=== PATIENT | female | born 1950 | race Caucasian/White ===

== ENCOUNTER 2016-11-01 20:52 | Emergency (ER) | payer MEDICARE, OTHER ==
[~2016-11-01] VITALS: Ht 157.5 cm; Wt 63.5 kg
[~2016-11-01 20:52] MED LIST: AMLO5TAB2 PO; CIPR500T78 PO; ENAL20TA PO; METH4TAB PO; METR500T PO; PANT40TA2 PO; SULF1TAB38 PO
--- OUTSIDE RECORDS SUMMARY | 2016-11-01 20:57 | XMS REPORT | Continuity of Care Document ---
Author Author [facility] Organization [facility] Address Unknown Phone Unavailable Allergies Active Description Code Type Severity Reaction Onset Reported/Identified Relationship to Patient Clinical Status Yes amlodipine [id number] Drug Allergy Unknown N/A 09/01/2013 Yes Penicillins [id number] Drug Allergy Mild N/A 02/03/2015 Yes erythromycin base [id number] Drug Allergy Severe HIVES 06/04/2015 Medications Problems Date Dx Coded Attending Type Code Diagnosis Diagnosed By 09/02/2013 SANJAY YANES DO Ot 276.50 VOLUME DEPLETION, UNSPECIFIED 09/02/2013 SANJAY YANES DO Ot 599.0 URIN TRACT INFECTION NOS 09/02/2013 SANJAY YANES DO Ot 780.60 FEVER, UNSPECIFIED 11/28/2014 CAMERON BAUM, GREGORIA Mary Ot 558.9 NONINF GASTROENTERIT NEC 11/28/2014 CAMERON BAUM, GREGORIA T Ot 562.10 DIVERTICULOSIS COLON (W/O MENT OF HEMORR 11/28/2014 CAMERON BAUM, GREGORIA Mary Ot 569.3 RECTAL ANAL HEMORRHAGE 11/28/2014 CAMERON BAUM, GREGORIA T Ot 753.10 CYSTIC KIDNEY DISEASE, UNSPECIFIED 11/28/2014 RENEE BAUM, MITUL R Ot 786.50 11/28/2014 RENEE BAUM, MITUL R Ot 611.71 11/28/2014 RENEE BAUM, MITUL R Ot 793.89 11/28/2014 RENEE BAUM, MITUL R Ot V15.88 11/28/2014 RENEE BAUM, MITUL R Ot V16.3 11/28/2014 RENEE BAUM, MITUL R Ot V76.12 11/28/2014 RENEE BAUM, MITUL R Ot V76.12 01/13/2015 RENEE BAUM, MITUL R Ot 786.50 01/13/2015 RENEE BAUM, MITUL R Ot 611.71 01/13/2015 RENEE BAUM, MITUL R Ot 793.89 01/13/2015 RENEE BAUM, MITUL R Ot V15.88 01/13/2015 RENEE BAUM, MITUL R Ot V16.3 01/13/2015 RENEE BAUM, MITUL R Ot V76.12 01/13/2015 RENEE BAUM, MITUL R Ot V76.12 02/03/2015 MAYO BAUM, SAL Ot K21.0 GASTRO-ESOPHAGEAL REFLUX DISEASE WITH ES 02/03/2015 MAYO BAUM, SAL Ot K29.70 GASTRITIS, UNSPECIFIED, WITHOUT BLEEDING 02/03/2015 MAYO BAUM, SAL Ot K44.9 DIAPHRAGMATIC HERNIA WITHOUT OBSTRUCTION 02/03/2015 MAYO BAUM, SAL Ot K57.90 DVRTCLOS OF INTEST, PART UNSP, W/O PERF 02/03/2015 MAYO BAUM, SAL Ot K64.4 RESIDUAL HEMORRHOIDAL SKIN TAGS 02/03/2015 MAYO BAUM, SAL Ot K64.8 OTHER HEMORRHOIDS 02/03/2015 RENEE BAUM, MITUL R Ot 719.45 02/03/2015 RENEE BAUM, MITUL R Ot V76.12 02/22/2015 RENEE BAUM, MITUL R Ot 719.45 02/22/2015 RENEE BAUM, MITUL R Ot V76.12 06/04/2015 FILIBERTO ABUM, CAROLEE S Ot N95.2 POSTMENOPAUSAL ATROPHIC VAGINITIS 06/04/2015 FILIBERTO BAUM, CAROLEE S Ot R30.0 DYSURIA 12/23/2015 RENEE BAUM, MITUL R Ot 786.50 CHEST PAIN NOS 12/23/2015 RENEE BAUM, MITUL R Ot 611.71 MASTODYNIA 12/23/2015 RENEE BAUM, MITUL R Ot 793.89 OTH (ABN) FINDINGS ON RADIOLOGICAL EXAMI 12/23/2015 RENEE BAUM, MITUL R Ot V15.88 HISTORY OF FALL 12/23/2015 MITUL DURAN MD R Ot V16.3 FAMILY HX-BREAST MALIG 12/23/2015 MITUL DURAN MD R Ot V76.12 OTH SCREEN MAMMO-MALIGN NEOPLASM OF COOPER 12/23/2015 MITUL DURAN MD Ot V76.12 OTH SCREEN MAMMO-MALIGN NEOPLASM OF [place]OPER 12/23/2015 MITUL DURAN MD Ot 719.45 JOINT PAIN-PELVIS 12/23/2015 MITUL DURAN MD Ot V76.12 OTH SCREEN MAMMO-MALIGN NEOPLASM OF [place] 12/23/2015 SAL HUBER MD Ot Z01.818 ENCOUNTER FOR OTHER PREPROCEDURAL EXAMIN 01/14/2016 MITUL DURAN MD R Ot R10.11 RIGHT UPPER QUADRANT PAIN 01/14/2016 MITUL DURAN MD Ot R10.31 RIGHT LOWER QUADRANT PAIN 02/02/2016 MITUL DURAN MD Ot R10.11 RIGHT UPPER QUADRANT PAIN 02/02/2016 MITUL DURAN MD Ot R10.31 RIGHT LOWER QUADRANT PAIN Procedures Results Test Result Range [id number] - 12/23/15 07:05 Serum or plasma urea nitrogen measurement (mass/volume) 19 mg/dL 7-18 Serum or plasma creatinine measurement (mass/volume) 0.78 mg /dL 0.60-1.30 Serum or plasma urea nitrogen/creatinine mass ratio 24 NRG Serum or plasma creatinine measurement with calculation of estimated glomerular filtration rate > NRG Encounters ACCT No. Visit Date/Time Discharge Status Pt. Type Provider Facility Loc./Unit Complaint [id number] 06/04/2015 10:10:00 2015 12:00:00 DIS Emergency FILIBERTO BAUM, CAROLEE Jamison [facility] ER VAG BLEEDING, UTI SYMPTOMS [id number] 02/03/2015 08:00:00 2014 12:35:00 DIS Outpatient SAL HUBER MD [facility] SDC REFLUX; SCREENING [id number] 01/28/2015 05:42:00 2014 23:59:59 CLS Outpatient SAL HUBER MD [facility] PREOP REFLUX; SCREENING [id number] 01/13/2015 09:18:00 2014 23:59:59 CLS Outpatient MITUL DURAN MD [facility] RAD SCREENING,PAIN IN BOTH HIPS [id number] 11/27/2014 23:09:00 2014 01:48:00 DIS Emergency CAMERON BAUM, GREGORIA Mary [facility] ER RECTAL BLEEDING [id number] 01/21/2014 12:55:00 2013 23:59:59 CLS Outpatient MITUL DURAN MD [facility] RAD SCREENING [id number] 09/01/2013 21:01:00 2013 01:11:00 DIS Emergency FARZANA DO, SANJAY K [facility] ER FEVER, DEHYDRATED [id number] 06/30/2013 07:36:00 2013 23:59:59 CLS Outpatient MITUL DURAN MD [facility] RAD 6 MONTH FOLLOW UP [id number] 10/14/2012 08:09:00 2012 23:59:59 CLS Outpatient MITUL DURAN MD [facility] RAD RT BREAST SORENESS,FALL [id number] 09/25/2012 15:44:00 2012 23:59:59 CLS Outpatient MITUL DURAN MD [facility] RAD SHARP PAIN,R CENT CHEST [id number] 12/23/2015 06:51:00 ACT Outpatient MITUL DURAN MD [facility] RAD ABD PAIN,RUQ LQ PAIN
[2016-11-01] MEDS ORDERED: LACTATED RINGERS 1,000 ML IV ONE (22:15)
--- NOTE | 2016-11-01 22:15 | ED General ---
General Chief Complaint: General Problems/Pain Stated Complaint: NAUSEA,WEAKNESS Nursing Triage Note: PT C/O WEAKNESS, FATIGUE, DECREASED APPETITE STARTING SUNDAY. Nursing Sepsis Screen: No Definite Risk Source of Information: Patient, Spouse Exam Limitations: No Limitations History of Present Illness Time Seen by Provider: 22:06 Initial Comments Patient uses the ER with 3 days of progressively worsening malaise and fatigue. She states that she gets dehydrated from time to time because she does not like to drink water very much. She has high blood pressure and is treated with enalapril and amlodipine. She is not on any diuretics. However she has noted that she has had less urination. She denies dysuria or discharge. She denies shortness of breath, nausea, vomiting, chest pain, palpitations, syncope, diarrhea, constipation. She states she was told 20 years ago when she was in the ER in [place] that she was "primed for a heart attack" but had a subsequent heart catheter that was normal. She has no cardiac history otherwise. No hypothyroid her hyperthyroidism. She smoked for one to 2 years when she was in her teens and does not drink or use drugs. Allergies and Home Medications Allergies Coded Allergies: erythromycin base (Verified Allergy, Severe, HIVES, 06/04/15) Penicillins (Verified Allergy, Mild, 02/03/15) Home Medications Amlodipine Besylate 5 Mg Tablet, 2.5 MG PO DAILY, (Reported) Enalapril Maleate 20 Mg Tablet, 20 MG PO DAILY, (Reported) Constitutional: No chills, No diaphoresis, No dizziness, No fever, malaise, No weakness, No weight gain, No weight loss EENTM: No ear pain, No epistaxis, No eye pain, No nose congestion, No nose pain Respiratory: No cough, No dyspnea on exertion, No short of breath, No wheezing Cardiovascular: No chest pain, edema, No Hx of Intervention (mild) Gastrointestinal: No abdominal pain, No constipation, No diarrhea, No dysphagia Genitourinary: No dysuria, No frequency : No Musculoskeletal: No back pain, No joint pain Skin: No pruritus, No rash Psychiatric/Neurological: Denies Headache, Denies Numbness, Denies Paresthesia , Denies Tremors, Denies Weakness Past Grsckas-Mpxejh-Rguccu Hx Patient Social History Alcohol Use: Denies Use Recreational Drug Use: No Smoking Status: Never a Smoker Recent Foreign Travel: No Contact w/Someone Who Travel: No Recent Infectious Disease Expo: No Recent Hopitalizations: No Seasonal Allergies Seasonal Allergies: No Surgeries HX Surgeries: Yes (cystocele repair) Surgeries: Abdominal, Gallbladder, Hysterectomy, Oophorectomy Respiratory Hx Respiratory Disorders: No Cardiovascular Hx Cardiac Disorders: Yes Cardiac Disorders: Hypertension Neurological Hx Neurological Disorders: No Reproductive System Hx Reproductive Disorders: No Sexually Transmitted Disease: No HIV/AIDS: No 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 Genitourinary Hx Genitourinary Disorders: Yes Genitourinary Disorders: UTI-Chronic Gastrointestinal Hx Gastrointestinal Disorders: Yes Gastrointestinal Disorders: Diverticulosis, Hemorrhoids, Hiatal Hernia Musculoskeletal Hx Musculoskeletal Disorders: No Endocrine Hx Endocrine Disorders: No HEENT HX ENT Disorders: No Cancer Hx Cancer: No Psychosocial Hx Psychiatric Problems: No Integumentary HX Skin/Integumentary Disorder: No Blood Transfusions Hx Blood Disorders: No Adverse Reaction to a Blood Tr: No Family Medical History Significant Family History: Heart Disease, Cancer, Diabetes Physical Exam Vital Signs Vital Sign - Last 12Hours 11/01/16 21:04 Temp 98.2 Pulse 67 Resp 18 B/P (MAP) 141/100 Capillary Refill : Less Than 3 Seconds General Appearance: No Apparent Distress, WD/WN Eyes: Bilateral Eye EOMI, Bilateral Eye Normal Inspection, Bilateral Eye PERRL HEENT: PERRL/EOMI, Pharynx Normal Neck: Full Range of Motion, Normal Inspection, Non Tender, Supple Respiratory: Chest Non Tender, Lungs Clear, Normal Breath Sounds, No Accessory Muscle Use Cardiovascular: Regular Rate, Rhythm, No Edema, No Gallop, No JVD, Normal Peripheral Pulses Gastrointestinal: Normal Bowel Sounds, Non Tender, Soft Extremity: Normal Capillary Refill, No Pedal Edema Neurologic/Psychiatric: Alert, Oriented x3 Skin: Normal Color, Warm/Dry Progress/Results/Core Measures Results/Orders Lab Results Laboratory Tests Test 11/01/16 21:13 11/01/16 21:24 Range/Units White Blood Count 5.8 4.3-11.0 10^3/uL Red Blood Count 4.65 4.35-5.85 10^6/uL Hemoglobin 13.6 11.5-16.0 G/DL Hematocrit 41 35-52 % Mean Corpuscular Volume 89 80-99 FL Mean Corpuscular Hemoglobin 29 25-34 PG Mean Corpuscular Hemoglobin Concent 33 32-36 G/DL Red Cell Distribution Width 13.9 10.0-14.5 % Platelet Count 373 130-400 10^3/uL Mean Platelet Volume 10.3 7.4-10.4 FL Neutrophils (%) (Auto) 59 42-75 % Lymphocytes (%) (Auto) 27 12-44 % Monocytes (%) (Auto) 10 0-12 % Eosinophils (%) (Auto) 4 0-10 % Basophils (%) (Auto) 0 0-10 % Neutrophils # (Auto) 3.4 1.8-7.8 X 10^3 Lymphocytes # (Auto) 1.6 1.0-4.0 X 10^3 Monocytes # (Auto) 0.6 0.0-1.0 X 10^3 Eosinophils # (Auto) 0.2 0.0-0.3 10^3/uL Basophils # (Auto) 0.0 0.0-0.1 10^3/uL Prothrombin Time 12.4 12.2-14.7 SEC INR Comment 1.0 0.8-1.4 Activated Partial Thromboplast Time 28 24-35 SEC Sodium Level 141 135-145 MMOL/L Potassium Level 3.9 3.6-5.0 MMOL/L Chloride Level 108 H 98-107 MMOL/L Carbon Dioxide Level 23 21-32 MMOL/L Anion Gap 10 5-14 MMOL/L Blood Urea Nitrogen 17 7-18 MG/DL Creatinine 0.77 0.60-1.30 MG/DL Estimat Glomerular Filtration Rate > 60 BUN/Creatinine Ratio 22 Glucose Level 95 70-105 MG/DL Calcium Level 9.1 8.5-10.1 MG/DL Magnesium Level 2.4 1.8-2.4 MG/DL Total Bilirubin 0.4 0.1-1.0 MG/DL Aspartate Amino Transf (AST/SGOT) 32 5-34 U/L Alanine Aminotransferase (ALT/SGPT) 31 0-55 U/L Alkaline Phosphatase 67 40-136 U/L Troponin I < 0.30 <0.30 NG/ML Total Protein 7.3 6.4-8.2 GM/DL Albumin 4.2 3.2-4.5 GM/DL Thyroid Stimulating Hormone (TSH) 1.71 0.35-4.94 UIU/ML Urine Color YELLOW Urine Clarity CLEAR Urine pH 6 5-9 Urine Specific [place] 1.020 1.016-1.022 Urine Protein NEGATIVE NEGATIVE Urine Glucose (UA) NEGATIVE NEGATIVE Urine Ketones NEGATIVE NEGATIVE Urine Nitrite NEGATIVE NEGATIVE Urine Bilirubin NEGATIVE NEGATIVE Urine Urobilinogen NORMAL NORMAL MG/DL Urine Leukocyte Esterase 2+ H NEGATIVE Urine RBC (Auto) NEGATIVE NEGATIVE Urine RBC NONE /HPF Urine WBC 2-5 /HPF Urine Squamous Epithelial Cells 0-2 /HPF Urine Crystals NONE /LPF Urine Bacteria FEW H /HPF Urine Casts NONE /LPF Urine Mucus TRACE /LPF Urine Culture Indicated NO My Orders Orders - FRANK FARIA Cbc With Automated Diff (11/01/16 22:15) Comprehensive Metabolic Panel (11/01/16 22:15) Magnesium (11/01/16 22:15) Protime With Inr (11/01/16:15) Partial Thromboplastin Time (11/01/16 22:15) Thyroid Stimulating Hormone (11/01/16 22:15) Troponin I (11/01/16 22:15) Chest 1 View, Ap/Pa Only (11/01/16:15) Ekg Tracing (11/01/16 22:15) Monitor-Rhythm Ecg Trace Only (11/01/16 22:15) Lipid Panel (11/02/16 06:00) Saline Lock/Iv-Start (11/01/16 22:15) Lactated Ringers (Lr 1000 Ml Iv Solution (11/01/16 22:15) Ua Culture If Indicated (11/01/16 23:05) Medications Given in ED Current Medications Medications Dose Ordered Sig/Paula Route Start Time Stop Time Status Last Admin Dose Admin Lactated Ringer's 1,000 ml @ 0 mls/hr Q0M ONCE IV 11/01/16 22:15 11/01/16 22:22 DC 11/01/16 22:36 1,000 MLS/HR Vital Signs/I&O Vital Sign - Last 12Hours 11/01/16 21:04 Temp 98.2 Pulse 67 Resp 18 B/P (MAP) 141/100 Blood Pressure Mean: 114 Progress Note #1: Time: 22:30 Progress Note Heart scores low risk but the patient does have some heart risk factors and a Mace risk of less than 2%. Her very nonspecific symptoms may be indicative of a atypical presentation of cardiac so we will obtain a troponin and EKG and chest x-ray as well as some blood work looking at her taking about dehydration. We'll also give her some fluids. Progress Note #2: Time: 23:24 Progress Note Initial cardiac workup was unremarkable for any kind of coronary insufficiency. She is feeling better with her liter fluids. We have discussed appropriate fluid intake and avoidance of the heat. ECG Initial ECG Impression Date: Nov 01, 2016 Initial ECG Impression Time: 22:16 Initial ECG Rate: 69 Initial ECG Rhythm: Normal Sinus Initial ECG Intervals: Normal Initial ECG Impression: Normal Initial ECG Comparisson: No Previous ECG Available Comment No ST elevation or depression noted. Mean electrical activity is within normal limits. Diagnostic Imaging Diagonstic Imaging: Xray Plain Films/CT/US/NM/MRI: chest Comments No acute cardiopulmonary processes noted. Mediastinum within normal limits. Reviewed: Reviewed by Me Departure Impression Impression: Primary Impression: Dehydration Disposition: 01 HOME, SELF-CARE Condition: Improved Departure-Patient Inst. Decision time for Depature: 23:28 Referrals: MITUL DURAN MD (PCP/Family) Primary Care Physician Patient Instructions: Dehydration, Adult (DC) Add. Discharge Instructions: You're found to be very dehydrated and this improves we do some IV fluids. Be encouraged that you are drinking plenty of clear fluids. If you want to drink Gatorade or some other substance that would also be acceptable. I would encourage if you have to be out during the hot of the day that you would be drinking enough fluids that you're constantly sweating. If you notice that you' re urinating less than 3 or 4 times a day or that sure no longer sweating while you are in the heat, then you have fallen behind in your fluids and you should take the rest the day off and drink lots of fluids. All discharge instructions reviewed with patient and/or family. Voiced understanding. Copy Copies To 1: MITUL DURAN MD, TITUS J Nov 01, 2016 22:14
[2016-11-01 22:30] LABS: BASOPHILS % (AUTO) 0 % (0-10); EOSINOPHILS # (AUTO) 0.2 10^3/uL (0.0-0.3); EOSINOPHILS % (AUTO) 4 % (0-10); LYMPHOCYTES # (AUTO) 1.6 X 10^3 (1.0-4.0); LYMPHOCYTES % (AUTO) 27 % (12-44); MEAN CORPUSCULAR HEMOGLOBIN 29 PG (25-34); MEAN CORPUSCULAR HGB CONC 33 G/DL (32-36); MEAN CORPUSCULAR VOLUME 89 FL (80-99); MEAN PLATELET VOLUME 10.3 FL (7.4-10.4); MONOCYTES # (AUTO) 0.6 X 10^3 (0.0-1.0); MONOCYTES % (AUTO) 10 % (0-12); NEUTROPHILS # (AUTO) 3.4 X 10^3 (1.8-7.8); NEUTROPHILS % (AUTO) 59 % (42-75); PLATELET COUNT 373 10^3/uL (130-400); RED BLOOD COUNT 4.65 10^6/uL (4.35-5.85); RED CELL DISTRIBUTION WIDTH 13.9 % (10.0-14.5); WHITE BLOOD COUNT 5.8 10^3/uL (4.3-11.0)
[2016-11-01 22:32] LABS: PROTHROMBIN TIME PATIENT 12.4 SEC (12.2-14.7)
[2016-11-01 22:44] LABS: ALANINE AMINOTRANSFERASE 31 U/L (0-55); ALBUMIN 4.2 GM/DL (3.2-4.5); ANION GAP 10 MMOL/L (5-14); ASPARTATE AMINO TRANSFERASE 32 U/L (5-34); BILIRUBIN,TOTAL 0.4 MG/DL (0.1-1.0); BLOOD UREA NITROGEN 17 MG/DL (7-18); BUN/CREATININE RATIO 22; CALCIUM 9.1 MG/DL (8.5-10.1); CARBON DIOXIDE 23 MMOL/L (21-32); CHLORIDE 108 MMOL/L (98-107); CREATININE SERUM 0.77 MG/DL (0.60-1.30); GFR ESTIMATED > 60; GLUCOSE 95 MG/DL (70-105); MAGNESIUM 2.4 MG/DL (1.8-2.4); POTASSIUM 3.9 MMOL/L (3.6-5.0); SODIUM 141 MMOL/L (135-145); TOTAL PROTEIN 7.3 GM/DL (6.4-8.2)
[2016-11-01 23:04] LABS: THYROID STIMULATING HORMONE 1.71 UIU/ML (0.35-4.94); TROPONIN I < 0.30 NG/ML (<0.30)
[2016-11-01 23:17] LABS: BILIRUBIN,URINE NEGATIVE (NEGATIVE); KETONES,URINE NEGATIVE (NEGATIVE); LEUKOCYTE ESTERASE ,URINE 2+ (NEGATIVE); NITRITE,URINE NEGATIVE (NEGATIVE); PH,URINE 6 (5-9); PROTEIN,URINE NEGATIVE (NEGATIVE); UROBILINOGEN,URINE NORMAL (NORMAL)
[2016-11-01 23:24] LABS: SQUAMOUS EPITHELIAL CELL,UR 0-2 /HPF
[2016-11-01 23:49] VITALS: BP 146/89
--- NOTE | 2016-11-02 07:21 | Diagnostic Imaging Report ---
INDICATION: Fatigue Portable chest 10:40 PM Heart size and pulmonary vascularity are normal. Lungs are clear. There are no effusions or pneumothoraces. There is a small hiatal hernia. IMPRESSION: Small hiatal hernia. No acute abnormalities seen in the chest. Dictated by: Dictated on workstation # [id number]
== END 2016-11-01 23:49 | disposition home or self-care (01) ==
LOC: ER 20:52
DX: E86.0 Dehydration (principal); I10 Essential (primary) hypertension; Z90.710 Acquired absence of both cervix and uterus; Z90.49 Acquired absence of other specified parts of digestive tract; Z87.891 Personal history of nicotine dependence
CPT/HCPCS: 36415; 71010; 80053; 81000; 83735; 84443; 84484; 85025; 85610; 85730; 93005; 96360

== ENCOUNTER → 2016-11-14 | Outpatient (CLI) | payer MEDICARE, OTHER ==
--- NOTE | 2016-11-16 18:03 | Diagnostic Imaging Report ---
Bilateral screening mammogram 2D views with tomosynthesis. The current study was also evaluated with a Computer Aided Detection (CAD) system. INDICATION: Screening. No current complaints stated on the questionnaire. COMPARISON: 01/13/15 FINDINGS: The breasts are composed of heterogeneously dense parenchyma which may decrease mammographic sensitivity. Benign-appearing calcifications are seen. Allowing for technique and positional differences, no suspicious change is seen. IMPRESSION: No significant change. ACR BI-RADS Category 2: Benign findings. Result letter will be mailed to the patient. Note: At least 10% of breast cancer is not imaged by mammography. Dictated by: Dictated on workstation # [id number]
== END ==
LOC: RAD 13:56
PROVIDERS: ATTEND Family Medicine
DX: Z12.31 Encounter for screening mammogram for malignant neoplasm of breast (principal)
CPT/HCPCS: 77067

== ENCOUNTER → 2016-11-21 | Outpatient (CLI) | payer MEDICARE, OTHER ==
--- NOTE | 2016-11-21 15:06 | Diagnostic Imaging Report ---
EXAMINATION: Left lower extremity duplex venous ultrasound. TECHNIQUE: DVT protocol. Multiple sonographic images with color Doppler and waveform interrogation were performed of the left lower extremity veins with compression and augmentation maneuvers. INDICATION: Left leg pain. FINDINGS: The left lower extremity veins from the groin to below the knee veins were examined with normal color-flow, compressibility and waveform demonstrated. The great saphenous vein is patent. IMPRESSION: No evidence of DVT in the left lower extremity. Dictated by: Dictated on workstation # [id number]
== END ==
LOC: RAD 13:52
PROVIDERS: ATTEND Family Medicine
DX: M79.662 Pain in left lower leg (principal)

== ENCOUNTER → 2017-06-27 | Outpatient (CLI) | payer MEDICARE, OTHER ==
--- NOTE | 2017-06-27 10:38 | Diagnostic Imaging Report ---
PROCEDURE: US Thyroid. TECHNIQUE: Multiple real-time grayscale images were obtained of the thyroid in various projections. INDICATION: Left thyroid fullness. FINDINGS: The right lobe of the thyroid measures 4.5 x 1.7 x 1.5 cm and the left lobe measures 4.0 x 1.1 x 1.5 cm. The left lobe demonstrates a homogeneous echotexture. No discrete thyroid mass is identified. The right lobe is heterogeneous. There is a circumscribed hypoechoic nodule in the upper pole of the right lobe measuring 7 mm x 9 mm x 4 mm. There is a somewhat ill-defined, hypoechoic solid nodule in the lower pole of the right lobe which contains multiple echogenic foci within it consistent with calcifications. This measures 1.0 x 1.5 x 1.7 cm. No other thyroid masses are seen. IMPRESSION: 1. No evidence of left lobe thyroid mass. 2. Right lobe thyroid masses, largest lower pole, as described containing multiple microcalcifications. Fine-needle aspiration is recommended. Dictated by: Dictated on workstation # [id number]
== END ==
LOC: RAD 08:33
PROVIDERS: ATTEND Family Medicine
DX: D34 Benign neoplasm of thyroid gland (principal)
CPT/HCPCS: 36415; 76536; 84443

== ENCOUNTER → 2017-07-04 | Outpatient (CLI) | payer MEDICARE, OTHER ==
[~2017-07-04] VITALS: Ht 157.5 cm; Wt 63.5 kg
[~2017-07-04] MED LIST changes: +LIDOCAINE 1% INJ 50 ML (XYLOCAINE) VIAL IJ ONE; +LIDOCAINE 1% INJ 50 ML (XYLOCAINE) VIAL ONE
[2017-07-04 09:30] VITALS: BP 118/68
[2017-07-04 10:00] VITALS: BP 117/68
--- NOTE | 2017-07-04 11:51 | Diagnostic Imaging Report ---
Indication: Right lobe thyroid mass. The patient presents for ultrasound-guided biopsy. The patient was brought to the procedure room and placed on the bed in the supine position. Ultrasound imaging over the neck was performed to evaluate appropriate entry site. This skin over the right neck was prepped and draped in the usual sterile fashion. A small amount of 1% lidocaine was utilized for local anesthesia. A total of 3 passes were made into the hypoechoic mass in the lower pole of the right lobe of the thyroid with 25-gauge needles. Fine needle aspiration was performed. Hemostasis was obtained utilizing manual compression. The patient tolerated the procedure well. Impression: Ultrasound-guided fine-needle aspiration of the hypoechoic mass with microcalcifications in the lower pole of the right lobe of the thyroid. Pathology results are currently pending. Dictated by: Dictated on workstation # [id number]
== END ==
LOC: RAD 09:15
PROVIDERS: ATTEND Family Medicine
DX: E07.9 Disorder of thyroid, unspecified (principal)
CPT/HCPCS: 76942

== ENCOUNTER 2017-07-10 14:34 | Outpatient (CLI) | payer MEDICARE, OTHER ==
[~2017-07-10] VITALS: Ht 157.5 cm; Wt 69.6 kg
[~2017-07-10 14:34] MED LIST changes: -LIDOCAINE 1% INJ 50 ML (XYLOCAINE) VIAL IJ ONE; -LIDOCAINE 1% INJ 50 ML (XYLOCAINE) VIAL ONE
[2017-07-10] MEDS ORDERED: OMEP40CA36 PO (14:44)
[2017-07-10] MEDS ORDERED: AMLO5TAB2 PO (14:44)
[2017-07-10] MEDS ORDERED: LOSA50TA36 PO (14:44)
[2017-07-10 14:47] VITALS: BP 134/98
[2017-07-10 15:17] LABS: BASOPHILS % (AUTO) 0 % (0-10); EOSINOPHILS # (AUTO) 0.3 10^3/uL (0.0-0.3); EOSINOPHILS % (AUTO) 4 % (0-10); HEMATOCRIT 41 % (35-52); HEMOGLOBIN 13.5 G/DL (11.5-16.0); LYMPHOCYTES # (AUTO) 1.7 X 10^3 (1.0-4.0); LYMPHOCYTES % (AUTO) 30 % (12-44); MEAN CORPUSCULAR HEMOGLOBIN 30 PG (25-34); MEAN CORPUSCULAR HGB CONC 33 G/DL (32-36); MEAN CORPUSCULAR VOLUME 89 FL (80-99); MEAN PLATELET VOLUME 10.3 FL (7.4-10.4); MONOCYTES # (AUTO) 0.5 X 10^3 (0.0-1.0); MONOCYTES % (AUTO) 9 % (0-12); NEUTROPHILS # (AUTO) 3.2 X 10^3 (1.8-7.8); NEUTROPHILS % (AUTO) 56 % (42-75); PLATELET COUNT 359 10^3/uL (130-400); RED BLOOD COUNT 4.57 10^6/uL (4.35-5.85); RED CELL DISTRIBUTION WIDTH 13.7 % (10.0-14.5); WHITE BLOOD COUNT 5.7 10^3/uL (4.3-11.0)
[2017-07-10 15:33] LABS: BUN/CREATININE RATIO 21; CARBON DIOXIDE 27 MMOL/L (21-32); CHLORIDE 108 MMOL/L (98-107); CREATININE SERUM 0.78 MG/DL (0.60-1.30); GFR ESTIMATED > 60; GLUCOSE 96 MG/DL (70-105); POTASSIUM 3.9 MMOL/L (3.6-5.0); SODIUM 141 MMOL/L (135-145)
[2017-07-12] MEDS ORDERED: HYDR-34 PO (11:30)
== END 2017-07-10 15:49 | disposition home or self-care (01) ==
LOC: PREOP 14:34
PROVIDERS: ATTEND Surgery
DX: Z01.812 Encounter for preprocedural laboratory examination (principal); Z11.2 Encounter for screening for other bacterial diseases; E07.9 Disorder of thyroid, unspecified
CPT/HCPCS: 36415; 80048; 85025; 87081

== ENCOUNTER 2017-07-12 06:50 | Day surgery (SDC) | payer MEDICARE, OTHER ==
[2017-07-12] VITALS (7 sets, daily range): BP systolic 119–142; BP diastolic 68–88
[~2017-07-12] VITALS: Ht 157.5 cm; Wt 69.6 kg
[~2017-07-12 06:50] MED LIST changes: +LOSA50TA36 PO; +OMEP40CA36 PO
[2017-07-12] MEDS ORDERED: CLINDAMYCIN 600 MG/50 ML IVPB 50 ML IV ONE (07:00)
[2017-07-12] MEDS ORDERED: FAMOTIDINE 20MG/2ML IV (PEPCID) IV ONE (07:15)
[2017-07-12] MEDS ORDERED: ONDANSETRON 4 MG/2 ML (SDV) Z0FRAN IV ONE (07:15)
[2017-07-12] MEDS ORDERED: SCOPOLAMINE 1.5 MG (TRANSDERM-SCOP) PATCH TOP ONE (07:15)
[2017-07-12] MEDS: LACTATED RINGERS 1,000 ML IV PRN ×2 (07:35→09:45)
--- NOTE | 2017-07-12 08:04 | Progress Note-Pre Operative ---
Pre-Operative Progress Note H&P Reviewed The H&P was reviewed, patient examined and no changes noted. Date Seen by Provider: Jul 12, 2017 Time Seen by Provider: 07:45 Date H&P Reviewed: Jul 12, 2017 Time H&P Reviewed: 07:50 Pre-Operative Diagnosis: Right thyroid mass ZAC MARIE APRN Jul 12, 2017 8:04 am
[2017-07-12] MEDS ORDERED: BUP/EPI 0.5% 1:200,000 (SENSORCAINE) 30 ML VIAL ONE (08:11)
[2017-07-12] MEDS ORDERED: ROCURONIUM 10 MG/ML 5 ML SYRINGE IV ONE (08:27)
[2017-07-12] MEDS ORDERED: SEVOFLURANE (ULTANE) 15 ML INHAL SOLN ONE ×8 (08:27→10:54)
[2017-07-12] MEDS ORDERED: LIDOCAINE PF 2% 5 ML (XYLOCAINE) VIAL ONE (08:27)
[2017-07-12] MEDS ORDERED: proPOfol 200 MG/20 ML (DIPRIVAN) VIAL IV ONE ×2 (08:27→11:31)
[2017-07-12] MEDS ORDERED: SUCCINYLCHOLINE INJ 100 MG/5 ML SYR ONE ×2 (08:27→11:30)
[2017-07-12] MEDS ORDERED: MIDAZOLAM 2 MG/2 ML (VERSED) VIAL ONE (08:28)
[2017-07-12] MEDS ORDERED: fentaNYL INJECTION 100 MCG/2 ML AMP ONE ×2 (08:28→14:10)
[2017-07-12] MEDS ORDERED: morphine INJ 10 MG/ML 1ML (SYR OR VIAL) ONE (10:50)
[2017-07-12] MEDS ORDERED: NEOSTIGMINE 1 MG/ML 5 ML SYRINGE ONE (10:51)
[2017-07-12] MEDS ORDERED: GLYCOPYRROLATE 0.2 MG/ML (ROBINUL) 2 ML VIAL ONE (10:51)
--- NOTE | 2017-07-12 11:21 | Progress Note-Post Operative ---
Post-Operative Progess Note Surgeon (s)/Dry Transfer Worker (s) Surgeon SAL HUBER MD Dry Transfer Worker: linda garcia CLERICAL MANAGER Pre-Operative Diagnosis Right thyroid mass Post-Operative Diagnosis right papillary thryoid cancer. Procedure & Operative Findings Date of Procedure 07/12/17 Procedure Performed/Findings total thyroidectomy. Anesthesia Type GET Estimated Blood Loss Estimated blood loss (mL): minimal Specimens/Packing Specimens Removed thyroid gland SAL HUBER MD Jul 12, 2017 11:21 am
[2017-07-12] MEDS: morphine INJ 10 MG/ML 1ML (SYR OR VIAL) IVP PRN ×2 (11:26→11:46)
[2017-07-12] MEDS ORDERED: ONDANSETRON 4 MG/2 ML (SDV) Z0FRAN IVP PRN ×2 (11:30)
[2017-07-12] MEDS ORDERED: fentaNYL INJECTION 5,000 MCG in EMPTY IV BAG (PVC) 1 EA IV SCH (11:30)
[2017-07-12] MEDS ORDERED: HYDROcodone/APAP 5 MG/325 MG (LORTAB) TAB PO ONE (11:30)
[2017-07-12] MEDS ORDERED: ACETAMINOPHEN 325 MG TABLET/CAPLET (TYLENOL) PO PRN (11:30)
[2017-07-12] MEDS ORDERED: HYDR-34 PO (11:30)
--- NOTE | 2017-07-12 11:31 | Discharge Inst-Surgical ---
D/C Lap Instructions-MAYO New, Converted, or Re-Newed RX: RX on Chart Follow Up Appt in 2 weeks Activity as tolerated No driving for 24 hours No driving while on pain medications Incentive Spirometry use every 2 hours while awake Regular Diet Symptoms to Report: Fever over 101 degree F, Nausea/Vomiting Infection Signs and Symptoms to report: Increased redness, Foul odor of wound, Increased drainage Bathing instructions: May shower Operative Area Clean/Dry; Keep incision clean/dry If any problems/questions: Contact your physician or go to Emergency Room SAL HUBER MD Jul 12, 2017 11:31 am
[2017-07-12] MEDS: NS IV 1000 ML 1,000 ML IV SCH ×2 (13:27→23:16)
--- NOTE | 2017-07-12 14:05 | Anesthesia-General Post-Op ---
General Patient Condition Mental Status/LOC: Same as Preop Cardiovascular: Satisfactory Nausea/Vomiting: Absent Respiratory: Satisfactory Pain: Controlled Complications: Absent Post Op Complications Complications None Follow Up Care/Instructions Patient Instructions None needed. Anesthesia/Patient Condition Patient Condition Patient is doing well, no complaints, stable vital signs, no apparent adverse anesthesia problems. No complications reported per nursing. [place] [facility] [place]: Yes DAHIANA WILLS CRNA Jul 12, 2017 14:05
[2017-07-12] MEDS ORDERED: fentaNYL INJECTION 100 MCG/2 ML AMP IVP PRN (14:30)
--- NOTE | 2017-07-12 16:24 | OPERATIVE REPORT ---
DATE OF SERVICE: 07/12/2017 PRIMARY CARE PHYSICIAN: Dr. Stratton. PREOPERATIVE DIAGNOSIS: Right papillary thyroid cancer. POSTOPERATIVE DIAGNOSIS: Right papillary thyroid cancer. PROCEDURE: Total thyroidectomy. SURGEON: Dr. Benito. DRAWER IN STITCH BONDING MACHINE: Isidro Bello APRN ANESTHESIA: General endotracheal. ESTIMATED BLOOD LOSS: Minimal. FINDINGS: Hard nodule of the right mid thyroid lobe. No palpable lesions of the left thyroid and no adenopathy throughout the neck. DISPOSITION: The patient tolerated the procedure well. The patient is a 66-year-old female known to us. She has had a history of reflux in the past. She underwent an EGD and colonoscopy, was found to have a recurrent hiatal hernia as well as a mild gastritis and biopsies of the stomach were negative for H. 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 She was referred over to us in need of a thyroidectomy. She reported that she felt a nodule of the right lateral neck 1 month ago. She underwent laboratory evaluation, which was normal. She then underwent an ultrasound where a solid lesion was identified of the right lobe. This was biopsied and this showed a high suspicion of papillary carcinoma. She also reports that she has had other family members with thyroid issues. The options were explained to her and due to the diagnosis as well as her age, she would like to have a total thyroidectomy and proceed with lifelong thyroid therapy. DESCRIPTION OF PROCEDURE: The patient was brought to the operating room, laid supine on the table. After adequate IV pain and sedative medications and general endotracheal intubation, the patient was placed with the head elevated 30 degrees and the neck extended. The face, neck and chest were then prepped and draped in standard surgical fashion. We then measured approximately 2 cm below the cricoid cartilage and marked this with a marking pen along the glabellar lines. We made approximately a 6 cm incision using a 15 blade. The subcutaneous tissue was then opened using electrocautery. The platysma was then identified and opened transversely using electrocautery. We then proceeded to create our superior and inferior flaps overlying the fascia using blunt dissection as well as electrocautery. The anterior jugular vein was identified and spared. The median raphe was then identified and opened vertically using electrocautery. We first proceeded with dissection of the right lobe of the thyroid gland. The isthmus of the thyroid was identified and then we proceeded with a blunt dissection of the connective tissue fibers along the lateral aspect of the thyroid lobe. The middle thyroid vein was identified and dissected out as well as cauterized and ligated using a Sonicision. The superior thyroid artery and vein were then identified and ligated and cauterized adjacent to the thyroid gland. The recurrent laryngeal nerve was identified and spared throughout the process. We then proceeded with dissection of the inferior portion of the lobe dissecting out the inferior thyroid artery and vein and cauterizing and cutting this using the Sonicision with visualization of good hemostasis. We then proceeded with lateral to medial dissection identifying the superior and inferior parathyroid glands and sparing these. We did this with blunt dissection as well as electrocautery until the trachea was identified. We then proceeded with dissection of the left lobe of the thyroid gland. The strap muscles were retracted laterally and the thyroid gland was retracted medially. In a similar fashion, the middle thyroid vein was identified and dissected and transected. Recurrent laryngeal nerve was identified and spared. The superior portion of the lobe was then dissected identifying the superior thyroid artery and vein and ligating this very close to the thyroid lobe. We then proceeded with inferior dissection of the lobe taking the inferior thyroid and artery. We then proceeded with lateral to medial dissection again identifying the parathyroid glands and sparing them. We then proceeded medially taking the entire isthmus lobe and the entirety of the thyroid lobe. This was then sent to pathology. The wound was then copiously irrigated and suctioned out with visualization of good hemostasis. The strap muscles were then reapproximated using 3-0 Vicryl running suture. The platysma muscle was then reapproximated using 3-0 Vicryl interrupted sutures. The skin was closed using 4-0 Monocryl running subcuticular suture. Wound was then cleaned and covered with Dermabond. The patient tolerated the procedure well. We will admit her 23-hour observation for adequate pain control as well as to monitor her postoperative calcium. We will also proceed with DVT prophylaxis. Job ID: [id number] DocumentID: [id number] Dictated Date: 07/12/2017 11:19:12 Data Center Consultant Date: 07/12/2017 16:23:42 Dictated By: SAL BENITO MD
[2017-07-12] MEDS: HYDROcodone/APAP 5 MG/325 MG (LORTAB) TAB PO PRN (20:47)
[2017-07-13] MEDS: HYDROcodone/APAP 5 MG/325 MG (LORTAB) TAB PO PRN (04:02)
[2017-07-13 04:36] VITALS: BP 133/82
[2017-07-13 08:00] VITALS: BP 116/67
[2017-07-13] MEDS: NS IV 1000 ML 1,000 ML IV SCH (08:48)
[2017-07-13 11:50] VITALS: BP 116/67
--- NOTE | 2017-07-13 12:16 | Progress Note (SOAP) ---
Subjective Date Seen by Provider: Jul 13, 2017 Time Seen by Provider: 11:00 Subjective/Events-last exam doing well. normal verbalization/phonation. normal swallow and cough. tolerating diet. Objective Exam Vital Signs Date Time Temp Pulse Resp B/P (MAP) Pulse Ox O2 Delivery O2 Flow Rate FiO2 07/13/17 08:00 Nasal Cannula 3.00 07/13/17 08:00 99.7 59 18 116/67 (83) 94 Nasal Cannula 3.00 07/13/17 04:36 98.2 70 18 133/82 (99) 95 Nasal Cannula 3.00 07/13/17 03:59 07/12/17 23:59 98.1 67 17 120/73 (89) 93 Nasal Cannula 3.00 07/12/17 23:36 07/12/17 20:10 Nasal Cannula 3.00 07/12/17 20:10 07/12/17 19:25 97.4 72 48 125/74 (91) 93 Nasal Cannula 3.00 07/12/17 16:53 Nasal Cannula 2.00 07/12/17 16:42 98.0 66 20 142/78 (99) 94 Nasal Cannula 3.00 07/12/17 14:01 96.0 56 16 119/68 95 Nasal Cannula 07/12/17 13:00 07/12/17 12:15 99.2 68 16 132/88 95 Room Air I & O 07/13/17 07:00 Intake Total 2675 ml Output Total 1400 ml Balance 1275 ml Capillary Refill : General Appearance: No Apparent Distress HEENT: PERRL/EOMI, Other (wound clean/dry, no swelling) Neck: Full Range of Motion Respiratory: Chest Non Tender, Lungs Clear, Normal Breath Sounds Cardiovascular: Regular Rate, Rhythm Gastrointestinal: normal bowel sounds, non tender, soft Extremity: Normal Capillary Refill Neurologic/Psychiatric: Alert, Oriented x3 Skin: Normal Color Lymphatic: No Adenopathy Results Lab Laboratory Tests 07/13/17 08:22: Calcium Level 8.3L Assessment/Plan Assessment/Plan Assess & Plan/Chief Complaint s/p total thyroidectomy for right papillary thyroid cancer. doing well. no complaints. tolerating diet with normal voice. wound clean/dry, no fluid collections. home soon. SAL HUBER MD Jul 13, 2017 12:16 pm
== END 2017-07-13 11:50 | disposition home or self-care (01) ==
LOC: SDC 06:50 → 4TH 12:25 → SDC 07-13 11:50
PROVIDERS: ATTEND Surgery
DX: C73 Malignant neoplasm of thyroid gland (principal); I10 Essential (primary) hypertension; K21.9 Gastro-esophageal reflux disease without esophagitis; Z79.899 Other long term (current) drug therapy
CPT/HCPCS: 36415; 82310; 88307; 94664

== ENCOUNTER 2017-07-18 17:21 | Inpatient (IN) | payer MEDICARE, OTHER ==
[~2017-07-18] VITALS: Ht 157.5 cm; Wt 70.3 kg
[2017-07-18 17:20] VITALS: BP 146/91
[~2017-07-18 17:21] MED LIST changes: -CALC625T68 PO; -HYDR-3816 PO; -LEVO50TA PO; -LEVO50TA6 PO; -MULT-324 PO; -RIVA15TA PO; -RIVA1TAB PO; -RIVA20TA PO
[2017-07-18] MEDS ORDERED: ONDANSETRON 4 MG/2 ML (SDV) Z0FRAN IVP PRN (17:45)
[2017-07-18] MEDS ORDERED: fentaNYL INJECTION 100 MCG/2 ML AMP IVP PRN (17:45)
[2017-07-18] MEDS: NS IV 1000 ML 1,000 ML IV SCH (17:57)
[2017-07-18] MEDS ORDERED: HEParin DRIP 25000 UNIT/500ML (FULL THERAPY) IV SCH (18:00)
[2017-07-18] MEDS ORDERED: HEParin 1000 UNIT/ML BOLUS (FULL THERAPY) IV PRN (18:00)
[2017-07-18 18:31] LABS: MEAN PLATELET VOLUME 10.1 FL (7.4-10.4); RED BLOOD COUNT 5.08 10^6/uL (4.35-5.85); RED CELL DISTRIBUTION WIDTH 13.7 % (10.0-14.5); WHITE BLOOD COUNT 8.2 10^3/uL (4.3-11.0)
[2017-07-18] MEDS ORDERED: LEVO50TA PO (18:33)
[2017-07-18 18:43] LABS: INR 0.9 (0.8-1.4); PROTHROMBIN TIME PATIENT 12.7 SEC (12.2-14.7)
[2017-07-18 19:05] VITALS: BP 139/84
[2017-07-18] MEDS ORDERED: CALCIUM CARBONATE 500 MG (TUMS) TAB.CHEW PO PRN (20:45)
[2017-07-18] MEDS: HYDROcodone/APAP 7.5MG-325 MG/15 ML (LORTAB) UDC PO PRN (21:30)
[2017-07-19] VITALS: BP 112/70
[2017-07-19 04:00] VITALS: BP 132/82
[2017-07-19] MEDS: NS IV 1000 ML 1,000 ML IV SCH ×2 (04:12→13:51)
--- NOTE | 2017-07-19 06:32 | HISTORY AND PHYSICAL ---
DATE OF SERVICE: ATTENDING PRIMARY CARE PHYSICIAN: Dr. Hero Stratton. HISTORY OF PRESENT ILLNESS: The patient is a 66-year-old female who was seen by us for a thyroid nodule. She reported feeling the nodule approximately 6 weeks ago and she had laboratory work done which was normal. She then underwent an ultrasound which showed that the lesion was solid of the right lobe. This was biopsied and found to be suspicious for papillary thyroid cancer. She has also had reported that she had other family members with thyroid issues. The risks and benefits of surgery were explained to the patient and she did opt for a total thyroidectomy, which she underwent on 07/12/2017. She did well after surgery and was ambulating well and tolerating a diet and had normal verbalization and phonation as well as normal cough reflux. She reports that yesterday she developed what she describes as weakness as well as muscle cramping. She reported generalized fatigue and weakness for the past day, but reported more muscle cramps to the left lower extremity. Labs were drawn which showed a normal CBC as well as electrolytes. She was sent for an ultrasound of the left lower extremity, which did show a deep venous thrombosis. PAST MEDICAL HISTORY: Papillary thyroid cancer, hypertension, gastroesophageal reflux disease. PAST SURGICAL HISTORY: Hiatal hernia repair, Anderson fundoplication, cholecystectomy in 1999, cystocele repair in 2004, left oophorectomy and completion hysterectomy. ALLERGIES: PENICILLIN. MEDICATIONS: Losartan 50 mg daily, amlodipine daily, omeprazole 40 mg daily. SOCIAL HISTORY: Negative smoke, negative alcohol. FAMILY HISTORY: Mother; diabetes, hypertension. Father, hypertension. Sister; hypertension, thyroid cancer, DVT. Brother, myocardial infarction in his 60s. Daughter and granddaughter with thyroid issues. PHYSICAL EXAMINATION: VITAL SIGNS: Stable, afebrile. CHEST: Clear. Good breath sounds bilaterally. HEART: Regular, no murmurs. EXTREMITIES: No lower extremity edema. Negative Homans sign bilaterally. HEENT: No scleral icterus. NECK: No cervical lymphadenopathy. Wound is clean, dry and intact with no fluid collections. ABDOMEN: Soft, nontender, nondistended. SKIN: Warm, dry. REVIEW OF SYSTEMS: Well-nourished female, currently in no acute distress. She is not experiencing any shortness of breath or any difficulty breathing. No chest pain, palpitations or diaphoresis. No nausea or vomiting, no diarrhea or constipation. No fever or chills. No recent inadvertent weight loss. She does report a muscle cramping sensation of the left lower extremity as well as just a generalized fatigue. All other review of systems is negative. ASSESSMENT AND PLAN: A 66-year-old female with left lower extremity deep venous thrombosis, status post total thyroidectomy for bilateral thyroid lobe papillary thyroid carcinoma. We will admit her and start heparin drip per nomogram and monitor her progress. We will then get a followup ultrasound in hopes of improvement in flow through the thrombotic segments as well as adequate collateralization. We will also consult internal medicine and possibly hematology. Job ID: [id number] DocumentID: [id number] Dictated Date: 07/18/2017 17:13:40 Mobile Sales Expert Date: 07/18/2017 17:38:58 Dictated By: SAL HUBER MD
[2017-07-19] MEDS ORDERED: PANTOPRAZOLE 40 MG (PROTONIX) TAB PO SCH (07:00)
[2017-07-19 08:00] VITALS: BP 137/86
[2017-07-19] MEDS ORDERED: MULT-324 PO (09:12)
[2017-07-19] MEDS ORDERED: HYDR-3816 PO (09:12)
[2017-07-19] MEDS ORDERED: CALC625T68 PO (09:12)
[2017-07-19] MEDS ORDERED: LEVO50TA6 PO (09:16)
[2017-07-19] MEDS ORDERED: RIVA1TAB PO (10:34)
[2017-07-19] MEDS: RIVAROXABAN 15 MG TABLET (XARELTO) PO SCH ×2 (10:46→18:26)
--- NOTE | 2017-07-19 10:50 | Consultation-Hospitalist ---
HPI History of Present Illness: HPI/Chief Complaint Pt is a 66yoCF with a PMH of HTN and recent thyroidectomy on 07/12/17 due to papillary thyroid carcinoma with Dr Benito. She was seen yesterday for leg pain that started yesterday and she described as a cramp. She sent to radiology for an usg. She denies any swelling or redness. She has never had a blood clot before. She has no history of GI bleed, ICH, or other issues with bleeding. She was found to have a DVT on usg yesterday and was admitted for heparin gtt and pain control. She reports her pain is controlled today with the medicine she is receiving. She still denies swelling though. She has had multiple surgeries in the past without any VTE. She denies any SOB, syncope, BARONE, or palpitations. Source: patient Exam Limitations: no limitations Date Seen 07/19/17 Attending Physician Atul Benito MD PCP Trevor Stratton MD Referring Physician Dr Benito Date of Admission Jul 18, 2017 at 17:21 Home Medications & Allergies Home Medications Reviewed patient Home Medication Reconciliation performed by pharmacy medication reconciliations it telecom technician and/or nursing. Patients Allergies have been reviewed. Allergies Allergies Coded Allergies erythromycin base (Verified Allergy, Severe, HIVES, 07/10/17) Penicillins (Verified Allergy, Mild, 07/10/17) Past Izbpxbl-Cdeqxm-Uvdnml Hx Past Med/Social Hx: Reviewed Nursing Past Med/Soc Hx Patient Social History Marrital Status: Alcohol Use: Denies Use Recreational Drug Use: No Smoking Status: Unknown if Ever Smoked Physical Abuse Screen: No Sexual Abuse: No Recent Foreign Travel: No Contact w/other who traveled: No Recent Hopitalizations: No Recent Infectious Disease Expo: No Immunizations Up To Date Date of Pneumonia Vaccine: May 08, 2016 Date of Influenza Vaccine: May 15, 2017 Seasonal Allergies Seasonal Allergies: No Past Medical History Surgeries: Gallbladder, Hysterectomy, Oophorectomy, Thyroidectomy Cardiac: Hypertension Reproductive: No Sexually Transmitted Disease: No HIV/AIDS: No Hysterectomy Genitourinary: UTI-Chronic Gastrointestinal: Gastroesophageal Reflux, Diverticulosis Endocrine: Hypothyroidsim Loss of Vision: Bilateral Hearing Impairment: Denies Cancer: Thyroid What Type of Treatment Did You: Surgical Intervention History of Blood Disorders: No Adverse Reaction to Blood Woods: No (N/A) Family History Reviewed Nursing Family Hx Heart Disease, Cancer, DVT/PE (sister-DVT), Diabetes Review of Systems Constitutional: No chills, No fever EENTM: No blurred vision, No double vision, No nose congestion, No throat pain Respiratory: No cough, No dyspnea on exertion, No orthopnea, No short of breath Cardiovascular: No chest pain, No edema, No palpitations, No syncope Gastrointestinal: No abdominal pain, No constipation, No diarrhea, No nausea, No vomiting Genitourinary: No dysuria, No frequency Musculoskeletal: see HPI Skin: No lesions, No rash Psychiatric/Neurological: Denies Headache, Denies Numbness, Denies Tingling Physical Exam Physical Exam Vital Signs Vital Signs - First Documented 07/18/17 07/19/17 17:20 00:00 Temp 99.0 Pulse 110 Resp 20 B/P (MAP) 146/91 (109) Pulse Ox 96 O2 Delivery Room Air Capillary Refill : Less Than 3 Seconds General Appearance: No Apparent Distress, WD/WN HEENT: PERRL/EOMI, Moist Mucous Membranes Neck: Non Tender, Supple, No JVD, Other (well healing wound consistent with recent thyroidectomy) Respiratory: Lungs Clear, No Accessory Muscle Use, No Respiratory Distress Cardiovascular: Regular Rate, Rhythm, No Murmur Gastrointestinal: Normal Bowel Sounds, Non Tender, Soft Extremity: Normal Capillary Refill, Calf Tenderness, No Inflammation, Swelling (mild nonpitting edema of LLE) Neurologic/Psychiatric: Alert, Oriented x3, No Motor/Sensory Deficits, Normal Mood/Affect Skin: Normal Color, Warm/Dry Results Results/Procedures Labs Laboratory Tests 07/18/17 18:19 Patient resulted labs reviewed. Imaging: Reviewed Imaging Report Imaging Date of Exam:07/18/17 US VENOUS LOWER EXT LT PROCEDURE: US left lower extremity venous. TECHNIQUE: Multiple real-time grayscale images were obtained over the left lower extremity in various projections. Additional duplex Doppler and color Doppler images were also obtained. INDICATION: Left leg pain. FINDINGS: Normal venous flow is seen within the left common femoral vein as well as superficial femoral vein and popliteal vein. There are, however, filling defects seen within the left tibioperoneal trunk which extend into the calf involving primarily the peroneal veins. No perivenous fluid collection is seen. IMPRESSION: Thrombosis of left peroneal vein in the calf region without other evidence of deep venous thrombosis. Assessment/Plan Assessment and Plan Assess & Plan/Chief Complaint DVT Diagnosis/Problems Diagnosis/Problems (1) DVT of lower extremity (deep venous thrombosis) Status: Acute Assessment & Plan: Will start on Xarelto Overlap heparin gtt by 2 hours and then turn off Discussed risk of PE and signs/symptoms that she should look out for to return for evaluation Discussed with Dr Benito and jen with NOAC Ok for DC home from medical POV if can afford Xarelto Qualifiers: Affected thrombotic vein of extremity: other lower extremity vein Chronicity: acute Laterality: left Qualified Codes: I82.492 - Acute embolism and thrombosis of other specified deep vein of left lower extremity (2) right thyroid ca Status: Chronic Assessment & Plan: s/p thyroidectomy Management per Dr. Benito (3) HTN (hypertension) Status: Chronic Assessment & Plan: Cont home meds Qualifiers: Hypertension type: essential hypertension Qualified Codes: I10 - Essential (primary) hypertension (4) Prophylactic measure Assessment & Plan: Reg diet Xarelto Saline Lock Clinical Quality Measures DVT/VTE Risk/Contraindication: Risk Factor Score Per Nursin RFS Level Per Nursing on Admit: 4+=Very High Copy Copies To 1: TREVOR STRATTON MD, KATELYN M MD Jul 19, 2017 10:50
[2017-07-19 12:00] VITALS: BP 141/88
[2017-07-19] MEDS: HYDROcodone/APAP 7.5MG-325 MG/15 ML (LORTAB) UDC PO PRN (14:28)
[2017-07-19] MEDS ORDERED: RIVA15TA PO (15:19)
[2017-07-19] MEDS ORDERED: RIVA20TA PO (15:19)
[2017-07-19 16:00] VITALS: BP 122/79
--- NOTE | 2017-07-19 17:27 | Progress Note (SOAP) ---
Subjective Date Seen by Provider: Jul 19, 2017 Time Seen by Provider: 17:15 Subjective/Events-last exam doing better. less leg pain. minimal edema. no respiratory issues. Objective Exam Vital Signs Date Time Temp Pulse Resp B/P (MAP) Pulse Ox O2 Delivery O2 Flow Rate FiO2 07/19/17 12:00 98.7 74 18 141/88 (105) 96 07/19/17 09:00 Room Air 07/19/17 08:00 98.9 79 20 137/86 (103) 92 07/19/17 04:00 98.7 67 16 132/82 (99) 95 Room Air 07/19/17 00:00 98.6 70 16 112/70 (84) 92 Room Air 07/18/17 19:05 99.8 84 18 139/84 (102) 93 I & O 07/19/17 06:59 Intake Total 1760 ml Output Total 660 ml Balance 1100 ml Capillary Refill : Less Than 3 Seconds General Appearance: No Apparent Distress HEENT: PERRL/EOMI Neck: Full Range of Motion Respiratory: Chest Non Tender, Lungs Clear Cardiovascular: Regular Rate, Rhythm Gastrointestinal: normal bowel sounds, non tender, soft Extremity: Normal Capillary Refill, Calf Tenderness, Swelling Neurologic/Psychiatric: Alert, Oriented x3 Skin: Normal Color Lymphatic: No Adenopathy Results Lab Laboratory Tests 07/18/17 18:19: White Blood Count 8.2, Red Blood Count 5.08, Hemoglobin 15.0, Hematocrit 46, Mean Corpuscular Volume 91, Mean Corpuscular Hemoglobin 30, Mean Corpuscular Hemoglobin Concent 32, Red Cell Distribution Width 13.7, Platelet Count 343, Mean Platelet Volume 10.1, Prothrombin Time 12.7, INR Comment 0.9, Activated Partial Thromboplast Time 28 07/18/17 23:00: Activated Partial Thromboplast Time 195*H 07/19/17 07:07: Activated Partial Thromboplast Time 93H Assessment/Plan Assessment/Plan Assess & Plan/Chief Complaint left lower extremity DVT s/p total thyroidectomy for papillary thyroid carcinoma. less edema and pain since hep gtt. xarelto started. will d/c home. f/u next week sunday in office(07/26) Clinical Quality Measures DVT/VTE Risk/Contraindication: Risk Factor Score Per Nursin RFS Level Per Nursing on Admit: 4+=Very High SAL HUBER MD Jul 19, 2017 5:27 pm
--- NOTE | 2017-07-19 17:29 | Discharge Inst-Surgical ---
D/C Lap Instructions-[facility] Follow Up next week sunday(07/26). Activity as tolerated Regular Diet Symptoms to Report: Fever over 101 degree F, Nausea/Vomiting Infection Signs and Symptoms to report: Increased redness, Foul odor of wound, Increased drainage Bathing instructions: May shower Operative Area Clean/Dry; Keep incision clean/dry If any problems/questions: Contact your physician or go to Emergency Room SAL HUBER MD Jul 19, 2017 5:29 pm
== END 2017-07-19 18:40 | disposition home or self-care (01) | DRG 301 ==
LOC: 4TH 17:21
PROVIDERS: ADMIT Surgery; ATTEND Surgery
DX: I82.4Z2 Acute embolism and thrombosis of unspecified deep veins of left distal lower extremity (principal); C73 Malignant neoplasm of thyroid gland; E89.0 Postprocedural hypothyroidism; I10 Essential (primary) hypertension; K21.9 Gastro-esophageal reflux disease without esophagitis; K57.90 Diverticulosis of intestine, part unspecified, without perforation or abscess without bleeding; Z98.890 Other specified postprocedural states
CPT/HCPCS: 36415; 85027; 85610; 85730

== ENCOUNTER → 2017-07-18 | Outpatient (CLI) | payer MEDICARE, OTHER ==
[~2017-07-18] MED LIST changes: +CALC625T68 PO; +HYDR-34 PO; +HYDR-3816 PO; +LEVO50TA PO; +LEVO50TA6 PO; +MULT-324 PO; +RIVA15TA PO; +RIVA1TAB PO; +RIVA20TA PO
[2017-07-18 15:57] LABS: HEMOGLOBIN 14.9 G/DL (11.5-16.0); RED BLOOD COUNT 5.03 10^6/uL (4.35-5.85); RED CELL DISTRIBUTION WIDTH 13.7 % (10.0-14.5); WHITE BLOOD COUNT 8.2 10^3/uL (4.3-11.0)
[2017-07-18 16:14] LABS: ALANINE AMINOTRANSFERASE 20 U/L (0-55); ALBUMIN 4.2 GM/DL (3.2-4.5); ALKALINE PHOSPHATASE 84 U/L (40-136); BILIRUBIN,TOTAL 0.4 MG/DL (0.1-1.0); BUN/CREATININE RATIO 10; CALCIUM 9.4 MG/DL (8.5-10.1); CARBON DIOXIDE 22 MMOL/L (21-32); CHLORIDE 109 MMOL/L (98-107); CREATININE SERUM 0.77 MG/DL (0.60-1.30); GFR ESTIMATED > 60; GLUCOSE 115 MG/DL (70-105); MAGNESIUM 2.2 MG/DL (1.8-2.4); PHOSPHORUS 2.9 MG/DL (2.3-4.7); POTASSIUM 3.8 MMOL/L (3.6-5.0); SODIUM 140 MMOL/L (135-145); TOTAL PROTEIN 7.6 GM/DL (6.4-8.2)
== END ==
LOC: LAB 15:35
PROVIDERS: ATTEND Surgery
DX: R53.1 Weakness (principal)
CPT/HCPCS: 36415; 80053; 83735; 84100; 85027

== ENCOUNTER → 2017-07-18 | Outpatient (CLI) | payer MEDICARE, OTHER ==
[~2017-07-18] VITALS: Ht 157.5 cm; Wt 69.6 kg
--- NOTE | 2017-07-18 17:11 | Diagnostic Imaging Report ---
PROCEDURE: US left lower extremity venous. TECHNIQUE: Multiple real-time grayscale images were obtained over the left lower extremity in various projections. Additional duplex Doppler and color Doppler images were also obtained. INDICATION: Left leg pain. FINDINGS: Normal venous flow is seen within the left common femoral vein as well as superficial femoral vein and popliteal vein. There are, however, filling defects seen within the left tibioperoneal trunk which extend into the calf involving primarily the peroneal veins. No perivenous fluid collection is seen. IMPRESSION: Thrombosis of left peroneal vein in the calf region without other evidence of deep venous thrombosis. Dictated by: Dictated on workstation # [id number]
== END ==
LOC: RAD 16:35
PROVIDERS: ATTEND Nurse Practitioner Family
DX: I82.4Z2 Acute embolism and thrombosis of unspecified deep veins of left distal lower extremity (principal); Z90.89 Acquired absence of other organs

== ENCOUNTER 2017-07-23 14:11 | Inpatient (IN) | payer MEDICARE, OTHER ==
[~2017-07-23] VITALS: Ht 157.5 cm; Wt 68.5 kg
[~2017-07-23 14:11] MED LIST changes: +CALC625T68 PO; +HYDR-3816 PO; +LEVO50TA PO; +LEVO50TA6 PO; +MULT-324 PO; +RIVA15TA PO; +RIVA1TAB PO; +RIVA20TA PO
[2017-07-23] MEDS ORDERED: IOHEXOL 350 MG/ML 150 ML (OMNIPAQUE 350) VIAL IV ONE (14:30)
[2017-07-23] MEDS ORDERED: NS 100 ML (IVPB) BAG IV ONE (14:30)
[2017-07-23 14:45] LABS: BASOPHILS # (AUTO) 0.1 10^3/uL (0.0-0.1); BASOPHILS % (AUTO) 1 % (0-10); EOSINOPHILS # (AUTO) 0.1 10^3/uL (0.0-0.3); EOSINOPHILS % (AUTO) 1 % (0-10); HEMATOCRIT 43 % (35-52); HEMOGLOBIN 14.5 G/DL (11.5-16.0); LYMPHOCYTES # (AUTO) 1.3 X 10^3 (1.0-4.0); LYMPHOCYTES % (AUTO) 16 % (12-44); MEAN CORPUSCULAR HEMOGLOBIN 30 PG (25-34); MEAN CORPUSCULAR HGB CONC 34 G/DL (32-36); MEAN CORPUSCULAR VOLUME 89 FL (80-99); MEAN PLATELET VOLUME 9.5 FL (7.4-10.4); MONOCYTES # (AUTO) 0.8 X 10^3 (0.0-1.0); MONOCYTES % (AUTO) 9 % (0-12); NEUTROPHILS # (AUTO) 5.9 X 10^3 (1.8-7.8); NEUTROPHILS % (AUTO) 73 % (42-75); PLATELET COUNT 472 10^3/uL (130-400); RED BLOOD COUNT 4.87 10^6/uL (4.35-5.85); RED CELL DISTRIBUTION WIDTH 13.4 % (10.0-14.5); WHITE BLOOD COUNT 8.1 10^3/uL (4.3-11.0)
[2017-07-23 15:02] LABS: ALANINE AMINOTRANSFERASE 32 U/L (0-55); ALKALINE PHOSPHATASE 86 U/L (40-136); BILIRUBIN,TOTAL 0.2 MG/DL (0.1-1.0); BUN/CREATININE RATIO 17; CALCIUM 9.3 MG/DL (8.5-10.1); CARBON DIOXIDE 26 MMOL/L (21-32); CHLORIDE 106 MMOL/L (98-107); CREATININE SERUM 0.82 MG/DL (0.60-1.30); GFR ESTIMATED > 60; GLUCOSE 133 MG/DL (70-105); POTASSIUM 3.9 MMOL/L (3.6-5.0); SODIUM 139 MMOL/L (135-145); TOTAL PROTEIN 7.2 GM/DL (6.4-8.2)
--- NOTE | 2017-07-23 15:04 | Diagnostic Imaging Report ---
INDICATION: Blood clots. TIME OF EXAM: 02:51 p.m. Correlation is made with prior study from 11/01/2016. FINDINGS: The heart size is normal. The pulmonary vascularity is unremarkable. The lungs are clear. No infiltrate, effusion or pneumothorax is detected. IMPRESSION: No acute cardiopulmonary process is detected. Dictated by: Dictated on workstation # [id number]
[2017-07-23 15:11] LABS: INR 1.5 (0.8-1.4); PROTHROMBIN TIME PATIENT 18.5 SEC (12.2-14.7)
--- NOTE | 2017-07-23 15:14 | ED Respiratory ---
General Chief Complaint: Respiratory Problems Stated Complaint: SOA/WEAKNESS Nursing Triage Note: PT TO ED 5 W/ C/O SOB ONSET THIS AM. PT REPORTS SHE WAS RECENTLY DISCHARGED FROM THIS FACILTY AFTER BEING DX W/ BLOOD CLOTS. PT DENIES ANY C/O CP, N/V AT THIS TIME. Source: patient History of Present Illness Date Seen by Provider: Jul 23, 2017 Time Seen by Provider: 14:22 Initial Comments PT ARRIVES VIA POV FROM HOME C/O SHORTNESS OF BREATH AND DIZZINESS, ALONG WITH FEELING LIKE SHE IS GOING TO PASS OUT AT TIMES--BEGAN ON WAKING THIS AM NO CHEST PAIN HAS CHRONIC COUGH AND IS NO DIFFERENT TODAY NO FEVER NO PALPITATIONS PT HAD THYROIDECTOMY ON 07/12/[address] UHBER FOR THYROID CANCER--HAS NOT SEEN ONCOLOGY YET PT WAS ADMITTED 07/18--07/19 FOR DVT LEFT LEG. PT IS ON XARELTO CALLED DR. HUBER'S OFFICE TODAY, WHO TOLD HER TO GO TO ER PCP: DR. DURAN SURGEON: DR HUBER Allergies and Home Medications Allergies Coded Allergies: erythromycin base (Verified Allergy, Severe, HIVES, 07/10/17) Penicillins (Verified Allergy, Mild, 07/10/17) Home Medications Amlodipine Besylate 5 Mg Tablet, 2.5 MG PO DAILY, (Reported) TAKES 1/2 (5MG) TABLET Calcium Polycarbophil 625 Mg Tablet, 2 TAB PO DAILY, (Reported) Hydrocodone/Acetaminophen 1 Each Tablet, 1-2 TAB PO Q4H PRN for PAIN-MODERATE, ( Reported) Levothyroxine Sodium 50 Mcg Tablet, 50 MCG PO DAILY, (Reported) Losartan Potassium 50 Mg Tablet, 50 MG PO DAILY, (Reported) Multivitamin 1 Each Tablet, 1 TAB PO DAILY, (Reported) Omeprazole 40 Mg Capsule., 40 MG PO DAILY, (Reported) Rivaroxaban 15 Mg Tablet, 15 MG PO BID Prescribed by: REYNA COFFEY on 07/19/17 151 Rivaroxaban 20 Mg Tablet, 20 MG PO DAILY Prescribed by: REYNA COFFEY on 07/19/171518 Patient Home Medication List Home Medication List Reviewed: Yes Constitutional: see HPI, dizziness, weakness EENTM: no symptoms reported Respiratory: see HPI, cough, dyspnea on exertion, short of breath Cardiovascular: see HPI, No chest pain, edema, other (PER HPI) Gastrointestinal: no symptoms reported Musculoskeletal: see HPI (LEFT LEG SWELLING AND PAIN ) Skin: no symptoms reported Psychiatric/Neurological: No Symptoms Reported Hematologic/Lymphatic: No Symptoms Reported Past [id number]-[id number] Hx Patient Social History Alcohol Use: Denies Use Recreational Drug Use: No Smoking Status: Never a Smoker Recent Foreign Travel: No Contact w/Someone Who Travel: No Recent Infectious Disease Expo: No Recent Hopitalizations: No Immunizations Up To Date Date of Pneumonia Vaccine: May 08, 2016 Date of Influenza Vaccine: May 15, 2017 Seasonal Allergies Seasonal Allergies: No Surgeries History of Surgeries: Yes (cystocele repair, HIATAL HERNIA REPAIR) Surgeries: Gallbladder, Hysterectomy, Oophorectomy, Thyroidectomy Respiratory History of Respiratory Disorde: Yes (CHRONIC COUGH) Cardiovascular History of Cardiac Disorders: Yes (DVT LEFT LEG 07/18/17) Cardiac Disorders: Deep Vein Thrombosis, Hypertension Neurological History of Neurological Disord: No Reproductive System Hx Reproductive Disorders: No Sexually Transmitted Disease: No HIV/AIDS: No 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, 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 Genitourinary History of Genitourinary Disor: Yes Genitourinary Disorders: UTI-Chronic Gastrointestinal History of Gastrointestinal Di: Yes Gastrointestinal Disorders: Gastroesophageal Reflux, Diverticulosis Musculoskeletal History of Musculoskeletal Dis: No Endocrine History of Endocrine Disorders: Yes (THYROID MASS-- THYROID OUT/ THYROID CANCER ) Endocrine Disorders: Hypothyroidsim HEENT Loss of Vision: Bilateral Hearing Impairment: Denies Cancer History of Cancer: Yes Cancer: Thyroid Did You Recieve Any Treatments: Yes (THYROIDECTOMY 07/12/17) Type of Tx Receive: Surgical Intervention Psychosocial History of Psychiatric Problem: No Integumentary History of Skin or Integumenta: No Blood Transfusions History of Blood Disorders: No Adverse Reaction to a Blood Tr: No (N/A) Family Medical History Significant Family History: Heart Disease, Cancer, DVT/PE, Diabetes Physical Exam Vital Signs Vital Signs - First Documented 07/23/17 14:12 Temp 97.5 Pulse 87 Resp 16 B/P (MAP) 150/98 (115) Pulse Ox 95 O2 Delivery Room Air Capillary Refill : Less Than 3 Seconds General Appearance: WD/WN, no apparent distress Neck: full range of motion, other (SURGICAL WOUND TO ANTERIOR NECK HEALING WELL WITH NO SIGNS OF INFECTION) Respiratory: normal breath sounds, no respiratory distress, no accessory muscle use Cardiovascular: normal peripheral pulses, regular rate, rhythm, no murmur Gastrointestinal: non tender, soft Extremities: normal range of motion, normal capillary refill, calf tenderness, pedal edema (1-2+ EDEMA OF LEFT LOWER LEG, WITH MILD CALF TENDERNESS) 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, no motor/sensory deficits, alert, normal mood/affect, oriented x 3 Skin: normal color, warm/dry Progress/Results/Core Measures Suspected Sepsis Recent Fever Within 48 Hours: No Infection Criteria Present: None New/Unexplained Altered Menta: No Sepsis Screen: No Definite Risk Sepsis Diagnosis: SIRS Temperature:97.5 Pulse: 87 Respiratory Rate: 16 Laboratory Tests 07/23/17 14:36: White Blood Count 8.1 Blood Pressure 150 /98 Mean: 115 Laboratory Tests 07/23/17 14:36: Creatinine 0.82, INR Comment 1.5H, Platelet Count 472H, Total Bilirubin 0.2 Results/Orders Lab Results Laboratory Tests Test 07/23/17 14:36 Range/Units White Blood Count 8.1 4.3-11.0 10^3/uL Red Blood Count 4.87 4.35-5.85 10^6/uL Hemoglobin 14.5 11.5-16.0 G/DL Hematocrit 43 35-52 % Mean Corpuscular Volume 89 80-99 FL Mean Corpuscular Hemoglobin 30 25-34 PG Mean Corpuscular Hemoglobin Concent 34 32-36 G/DL Red Cell Distribution Width 13.4 10.0-14.5 % Platelet Count 472 H 130-400 10^3/uL Mean Platelet Volume 9.5 7.4-10.4 FL Neutrophils (%) (Auto) 73 42-75 % Lymphocytes (%) (Auto) 16 12-44 % Monocytes (%) (Auto) 9 0-12 % Eosinophils (%) (Auto) 1 0-10 % Basophils (%) (Auto) 1 0-10 % Neutrophils # (Auto) 5.9 1.8-7.8 X 10^3 Lymphocytes # (Auto) 1.3 1.0-4.0 X 10^3 Monocytes # (Auto) 0.8 0.0-1.0 X 10^3 Eosinophils # (Auto) 0.1 0.0-0.3 10^3/uL Basophils # (Auto) 0.1 0.0-0.1 10^3/uL Prothrombin Time 18.5 H 12.2-14.7 SEC INR Comment 1.5 H 0.8-1.4 Activated Partial Thromboplast Time 39 H 24-35 SEC Sodium Level 139 135-145 MMOL/L Potassium Level 3.9 3.6-5.0 MMOL/L Chloride Level 106 98-107 MMOL/L Carbon Dioxide Level 26 21-32 MMOL/L Anion Gap 7 5-14 MMOL/L Blood Urea Nitrogen 14 7-18 MG/DL Creatinine 0.82 0.60-1.30 MG/DL Estimat Glomerular Filtration Rate > 60 BUN/Creatinine Ratio 17 Glucose Level 133 H 70-105 MG/DL Calcium Level 9.3 8.5-10.1 MG/DL Total Bilirubin 0.2 0.1-1.0 MG/DL Aspartate Amino Transf (AST/SGOT) 29 5-34 U/L Alanine Aminotransferase (ALT/SGPT) 32 0-55 U/L Alkaline Phosphatase 86 40-136 U/L Troponin I < 0.30 <0.30 NG/ML Total Protein 7.2 6.4-8.2 GM/DL Albumin 4.0 3.2-4.5 GM/DL My Orders Orders - SANJAY YANES DO Saline Lock/Iv-Start (07/23/17 14:20) Ekg Tracing (07/23/17 14:20) Monitor-Rhythm Ecg Trace Only (07/23/17 14:20) Ct Angio Chest W (07/23/17 14:20) Cbc With Automated Diff (07/23/17 14:20) Comprehensive Metabolic Panel (07/23/17 14:20) Protime With Inr (07/23/17 14:20) Partial Thromboplastin Time (07/23/17 14:20) Troponin I (07/23/17 14:20) Chest 1 View, Ap/Pa Only (07/23/17 14:20) Iohexol Injection (Omnipaque 350 Mg/Ml 1 (07/23/17 14:30) Ns (Ivpb) (Sodium Chloride 0.9% Ivpb Bag (07/23/17 14:30) Heparin Drip 42708 Unit/500ml (Heparin (07/23/17 16:27) Heparin (Bolus Per Protocol) (Heparin (B (07/23/17 16:30) Medications Given in ED Current Medications Medications Dose Ordered Sig/Paula Route Start Time Stop Time Status Last Admin Dose Admin Heparin Sodium (Porcine) HEPARIN FULL PROTOC... ONCE ONCE IV 07/23/17 16:30 07/23/17 16:31 DC 07/23/17 16:46 10,000 UNIT Heparin Sodium/ Dextrose 500 ml @ 0 mls/hr Q0M ONCE IV 07/23/17 16:27 07/23/17 16:29 DC 07/23/17 16:47 24 MLS/HR Iohexol 150 ml ONCE ONCE IV 07/23/17 14:30 07/23/17 14:34 DC 07/23/17 15:19 125 ML Sodium Chloride 100 ml ONCE ONCE IV 07/23/17 14:30 07/23/17 14:34 DC 07/23/17 15:19 80 ML Vital Signs/I&O Vital Sign - Last 12Hours 07/23/17 14:12 Temp 97.5 Pulse 87 Resp 16 B/P (MAP) 150/98 (115) Pulse Ox 95 O2 Delivery Room Air Capillary Refill : Less Than 3 Seconds Blood Pressure Mean: 115 Progress Note : Progress Note O2 SATS DROPPED TO 87-88% ON ROOM AIR SHORTLY AFTER ARRIVAL, UP TO MID 90'S ON O2 AT 2L/NC OTHERWISE UNEVENTFUL ER STAY ECG Initial ECG Impression Date: Jul 23, 2017 Initial ECG Impression Time: 14:21 Initial ECG Rate: 85 Initial ECG Rhythm: Normal Sinus Initial ECG Impression: Nonspecific Changes Diagnostic Imaging Comments CXR--NO ACUTE PROCESS, PER RADIOLOGIST REPORT @ 1535 CT CHEST ANGIOGRAM--+ P.E.'S ON RIGHT IN SEGMENTAL AND SUBSEGMENTAL BRANCHES. NO CENTRAL EMBOLI, UNCHANGED RIGHT HILAR AND MEDIASTINAL LYMPH NODES, LARGE HIATAL HERNIA--PER RADIOLOGIST REPORT @ 1614 Reviewed: Reviewed by Me Departure Communication (Admissions) Progress Notes 1616--MESSAGE LEFT ON DR. HUBER'S CELL PHONE. HE DID CALL LATER AND I INFORMED HIM OF ADMIT / PT'S CONDITION 1617--SPOKE WITH DR. BAKER, ACCEPTS PT FOR ADMIT. WILL ALSO CONSULT HEMATOLOGY/ ONCOLOGY Impression Impression: Primary Impression: PULMONARY EMBOLI WITH HYPOXIA Additional Impressions: Left leg DVT S/P thyroidectomy NEWLY DIAGNOSED THYROID CANCER Disposition: ADMITTED INPATIENT Condition: Stable Admissions Decision to Admit Reason: Admit from ER (General) Decision to Admit/Date: Jul 23, 2017 Time/Decision to Admit Time: 16:15 Departure-Patient Inst. Referrals: MITUL DURAN MD (PCP/Family) Primary Care Physician SANJAY YANES DO Jul 23, 2017 15:14
--- NOTE | 2017-07-23 16:05 | Diagnostic Imaging Report ---
PROCEDURE: CT angiography of the chest with contrast. TECHNIQUE: Multiple contiguous axial images were obtained through the chest after uneventful bolus administration of intravenous contrast. Reconstructed CTA MIP acquisitions were also performed. INDICATION: Shortness of air with history of blood clots. Correlation is made with CT chest from 09/01/2013. FINDINGS: Evaluation of the pulmonary arterial system does show small filling defects within right lower lobe segmental and subsegmental branches. No central emboli are detected. No left-sided pulmonary emboli are identified. The aorta is normal caliber. No dissection is seen. A small amount of pericardial fluid is present. There is a large hiatal hernia. No pleural effusion is seen. Parenchymal evaluation does show some minimal atelectasis in the left lower lobe adjacent to the aorta. No axillary lymphadenopathy is seen. Multiple shotty lymph nodes throughout the mediastinum are noted, similar to prior CT. A right hilar node measures 2.2 x 2.2 cm, fairly stable. Upper abdomen does show multiple renal cysts. IMPRESSION: 1. Findings positive for pulmonary emboli, small clot burden identified in right lower lobe segmental and subsegmental branches. No central emboli are detected. 2. Trace pericardial effusion. 3. Large hiatal hernia. 4. Nonspecific mediastinal and right hilar lymphadenopathy, similar to the examination from August 2013. Dictated by: Dictated on workstation # [id number]
[2017-07-23] MEDS ORDERED: HEParin DRIP 25000 UNIT/500ML 500 ML IV ONE (16:27)
[2017-07-23] MEDS ORDERED: HEParin 1000 UNIT/ML (10ML VIAL) FOR BOLUS IV ONE (16:30)
[2017-07-23 19:00] VITALS: BP_SYST 132; BP_SYST 135; BP_DIAS 85; BP_DIAS 89
[2017-07-23] MEDS ORDERED: RIVA1TAB PO (19:04)
[2017-07-23] MEDS ORDERED: CA C1TAB75 PO (19:04)
[2017-07-23 19:39] VITALS: BP 132/89
[2017-07-23] MEDS ORDERED: HEParin DRIP 25000 UNIT/500ML 500 ML IV SCH (19:54)
[2017-07-23] MEDS: ONDANSETRON 4 MG/2 ML (SDV) Z0FRAN IVP PRN (19:57)
[2017-07-23] MEDS ORDERED: RT-ALBUTEROL SULF 2.5 MG/3 ML PRE-MIX VIAL INH PRN (20:00)
[2017-07-23] MEDS ORDERED: HEParin 1000 UNIT/ML (10ML VIAL) FOR BOLUS IV SCH (20:00)
[2017-07-23] MEDS ORDERED: CATHETER FLUSH 10 ML SYR IV PRN (20:00)
[2017-07-23] MEDS: CATHETER FLUSH 10 ML SYR IV SCH (20:01)
[2017-07-23] MEDS: PANTOPRAZOLE 40 MG (PROTONIX) TAB PO SCH (20:10)
[2017-07-24 00:35] VITALS: BP 135/85
[2017-07-24 04:41] VITALS: BP 119/78
--- NOTE | 2017-07-24 04:45 | CONSULTATION REPORT ---
DATE OF SERVICE: PRIMARY CARE PHYSICIAN: Dr. Hero Stratton. ADMITTING PHYSICIAN: Devendra Gardner MD. HISTORY OF PRESENT ILLNESS: The patient is a 66-year-old female, known to us. She was seen for a thyroid nodule, which had felt for approximately two months. She underwent an ultrasound, which showed a solid lesion of the right lobe of the thyroid gland and biopsied and suspicious for papillary thyroid cancer. She also had reported other family members with thyroid issues. The risks and benefits of surgery were explained to the patient and she did opt for total thyroidectomy, which she underwent on 07/12/2017. After surgery, she had done well and was tolerating diet, normal verbalization and phonation as well as normal cough reflex. A subsequent pathology did reveal bilateral papillary thyroid cancer. Lymph nodes were negative. She was seen in the office on 07/18/2017, for weakness, muscle cramping of the left lower extremity. She underwent a lab work, which was normal. An ultrasound was also performed, which did show left lower extremity deep venous thrombosis. She was admitted and started on IV heparin followed by Xarelto on a b.i.d. basis. The following day, she has felt much better with decreased pain of the left lower extremity and was discharged home. She returned to the Emergency Department with shortness of breath. A CT scan of the chest was performed, which did show multiple small pulmonary emboli of the right lower lobe. Since being admitted, she was again started on heparin. She is on oxygen nasal cannula and reports that she is currently not short of breath and does not have any chest pain. Upon examination of the left lower extremity, there is no discomfort and no edema at this time. PAST MEDICAL HISTORY: Papillary thyroid carcinoma, hypertension, and gastroesophageal reflux disease. PAST SURGICAL HISTORY: Hiatal hernia repair, Anderson fundoplication, cholecystectomy in 1999, cystocele repair in 2004, left oophorectomy and completion hysterectomy. ALLERGIES: PENICILLIN. MEDICATIONS: Losartan 50 mg daily, amlodipine daily, and omeprazole 40 mg daily. SOCIAL HISTORY: Negative smoke, negative alcohol. FAMILY HISTORY: Mother with diabetes, hypertension; father with hypertension; sister with hypertension, thyroid cancer, DVT; father with myocardial infarction in his 60s; and daughter and granddaughter with thyroid issues. VITAL SIGNS: Temperature is 97.9, blood pressure 135/85, pulse 76, respirations 17, and pulse ox 97% on 2 liters nasal cannula. REVIEW OF SYSTEMS: A well-nourished female, currently in no acute distress. She was experiencing shortness of breath; however, no cough or hemoptysis. No sputum production as well. No nausea or vomiting, no diarrhea or constipation. No fever or chills, no recent inadvertent weight loss. All other review of systems is negative. PHYSICAL EXAMINATION: CHEST: Good breath sounds bilaterally. HEART: Regular, no murmurs. EXTREMITIES: No lower extremity edema, negative Homans sign. HEENT: No scleral icterus. NECK: No cervical lymphadenopathy. ABDOMEN: Soft, nontender, nondistended. SKIN: Warm, dry. LABORATORY DATA: WBC is 8.1, hemoglobin 14.5, hematocrit 43, and platelets 472. ASSESSMENT AND PLAN: A 66-year-old female with a right lower lobe pulmonary emboli and shortness of breath. This is most likely secondary to her DVT of her left lower extremity causing a showering of emboli, multiple small emboli to the right lower lobe and the symptomatic pulmonary embolism. She is status post total thyroidectomy for bilateral papillary thyroid cancer. We will continue with medical management with anticoagulation and supportive therapy with oxygen. We will also proceed with medical management recommendations per Internal Medicine as well as consulting Oncology for recommendations as well. Job ID: [id number] DocumentID: [id number] Dictated Date: 07/23/2017 21:58:52 Nuclear Weapons Mechanical Specialist Date: 07/24/2017 04:44:34 Dictated By: SAL HUBER MD [facility]
[2017-07-24] MEDS: CATHETER FLUSH 10 ML SYR IV SCH ×3 (05:25→22:00)
[2017-07-24 05:46] LABS: BASOPHILS # (AUTO) 0.1 10^3/uL (0.0-0.1); BASOPHILS % (AUTO) 1 % (0-10); EOSINOPHILS # (AUTO) 0.2 10^3/uL (0.0-0.3); EOSINOPHILS % (AUTO) 3 % (0-10); HEMATOCRIT 41 % (35-52); HEMOGLOBIN 13.6 G/DL (11.5-16.0); LYMPHOCYTES # (AUTO) 1.4 X 10^3 (1.0-4.0); LYMPHOCYTES % (AUTO) 23 % (12-44); MEAN CORPUSCULAR HEMOGLOBIN 29 PG (25-34); MEAN CORPUSCULAR HGB CONC 33 G/DL (32-36); MEAN CORPUSCULAR VOLUME 88 FL (80-99); MONOCYTES # (AUTO) 0.6 X 10^3 (0.0-1.0); MONOCYTES % (AUTO) 10 % (0-12); NEUTROPHILS % (AUTO) 64 % (42-75); PLATELET COUNT 462 10^3/uL (130-400); RED BLOOD COUNT 4.64 10^6/uL (4.35-5.85); RED CELL DISTRIBUTION WIDTH 13.5 % (10.0-14.5); WHITE BLOOD COUNT 6.3 10^3/uL (4.3-11.0)
[2017-07-24 05:57] LABS: ALANINE AMINOTRANSFERASE 25 U/L (0-55); ALBUMIN 3.7 GM/DL (3.2-4.5); ALKALINE PHOSPHATASE 77 U/L (40-136); BILIRUBIN,TOTAL 0.3 MG/DL (0.1-1.0); BUN/CREATININE RATIO 17; CALCIUM 8.9 MG/DL (8.5-10.1); CARBON DIOXIDE 24 MMOL/L (21-32); CHLORIDE 107 MMOL/L (98-107); CREATININE SERUM 0.75 MG/DL (0.60-1.30); GFR ESTIMATED > 60; GLUCOSE 119 MG/DL (70-105); POTASSIUM 3.8 MMOL/L (3.6-5.0); SODIUM 139 MMOL/L (135-145); TOTAL PROTEIN 6.6 GM/DL (6.4-8.2)
[2017-07-24] MEDS: PANTOPRAZOLE 40 MG (PROTONIX) TAB PO SCH (06:40)
[2017-07-24] MEDS ORDERED: PANTOPRAZOLE 40 MG (PROTONIX) TAB PO SCH (07:00)
[2017-07-24 08:00] VITALS: BP 115/79
[2017-07-24] MEDS ORDERED: NON-FORMULARY MEDICATION 1 EA EA (Omeprazole 40 MG) PO SCH (09:00)
[2017-07-24 12:00] VITALS: BP 123/85
[2017-07-24] MEDS: ONDANSETRON 4 MG/2 ML (SDV) Z0FRAN IVP PRN (12:06)
[2017-07-24] MEDS ORDERED: HYDROcodone/APAP 7.5 MG/325 MG (LORTAB, LORCET PLUS) TABLET PO PRN (13:45)
--- NOTE | 2017-07-24 14:33 | Progress Note (SOAP) ---
Subjective Date Seen by Provider: Jul 24, 2017 Time Seen by Provider: 14:00 Subjective/Events-last exam doing better today. minimal exertional SOB. no leg pain/edema. Objective Exam Vital Signs Date Time Temp Pulse Resp B/P (MAP) Pulse Ox O2 Delivery O2 Flow Rate FiO2 07/24/17 12:00 99.5 80 18 123/85 (98) 97 Nasal Cannula 2.00 07/24/17 11:13 94 Nasal Cannula 2.00 07/24/17 08:00 Nasal Cannula 2.00 07/24/17 08:00 98.8 67 16 115/79 (91) 98 Nasal Cannula 2.00 07/24/17 07:18 96 Nasal Cannula 2.00 07/24/17 07:10 77 07/24/17 04:41 96.8 66 16 119/78 (92) 94 Nasal Cannula 2.00 07/24/17 02:47 93 Nasal Cannula 2.00 07/24/17 01:00 68 07/24/17 00:35 97.9 80 17 135/85 (102) 91 Nasal Cannula 2.00 07/23/17 21:29 97 Nasal Cannula 2.00 07/23/17 21:00 Nasal Cannula 2.00 07/23/17 20:00 72 07/23/17 19:39 76 94 07/23/17 19:39 94 Nasal Cannula 2.00 07/23/17 19:30 Nasal Cannula 2.00 07/23/17 19:00 79 20 132/89 (103) 96 Nasal Cannula 2.00 07/23/17 19:00 97.9 80 17 135/85 (102) 91 Nasal Cannula 2.00 07/23/17 18:59 78 18 136/94 94 I & O 07/24/17 07:00 Intake Total 940 ml Output Total 700 ml Balance 240 ml Capillary Refill : Less Than 3 Seconds General Appearance: No Apparent Distress HEENT: PERRL/EOMI Neck: Full Range of Motion Respiratory: Chest Non Tender, Lungs Clear Cardiovascular: Regular Rate, Rhythm Gastrointestinal: normal bowel sounds Extremity: Normal Capillary Refill Neurologic/Psychiatric: Alert, Oriented x3 Skin: Normal Color Lymphatic: No Adenopathy Results Lab Laboratory Tests 07/23/17 14:36: White Blood Count 8.1, Red Blood Count 4.87, Hemoglobin 14.5, Hematocrit 43, Mean Corpuscular Volume 89, Mean Corpuscular Hemoglobin 30, Mean Corpuscular Hemoglobin Concent 34, Red Cell Distribution Width 13.4, Platelet Count 472H, Mean Platelet Volume 9.5, Neutrophils (%) (Auto) 73, Lymphocytes (%) (Auto) 16, Monocytes (%) (Auto) 9, Eosinophils (%) (Auto) 1, Basophils (%) (Auto) 1, Neutrophils # (Auto) 5.9, Lymphocytes # (Auto) 1.3, Monocytes # (Auto) 0.8, Eosinophils # (Auto) 0.1, Basophils # (Auto) 0.1, Prothrombin Time 18.5H, INR Comment 1.5H, Activated Partial Thromboplast Time 39H, Sodium Level 139, Potassium Level 3.9, Chloride Level 106, Carbon Dioxide Level 26, Anion Gap 7, Blood Urea Nitrogen 14, Creatinine 0.82, Estimat Glomerular Filtration Rate > 60 , BUN/Creatinine Ratio 17, Glucose Level 133H, Calcium Level 9.3, Total Bilirubin 0.2, Aspartate Amino Transf (AST/SGOT) 29, Alanine Aminotransferase ( ALT/SGPT) 32, Alkaline Phosphatase 86, Troponin I < 0.30, Total Protein 7.2, Albumin 4.0 07/23/17 20:50: Activated Partial Thromboplast Time > 200*H 07/24/17 05:20: White Blood Count 6.3, Red Blood Count 4.64, Hemoglobin 13.6, Hematocrit 41, Mean Corpuscular Volume 88, Mean Corpuscular Hemoglobin 29, Mean Corpuscular Hemoglobin Concent 33, Red Cell Distribution Width 13.5, Platelet Count 462H, Mean Platelet Volume 10.0, Neutrophils (%) (Auto) 64, Lymphocytes (%) (Auto) 23 , Monocytes (%) (Auto) 10, Eosinophils (%) (Auto) 3, Basophils (%) (Auto) 1, Neutrophils # (Auto) 4.0, Lymphocytes # (Auto) 1.4, Monocytes # (Auto) 0.6, Eosinophils # (Auto) 0.2, Basophils # (Auto) 0.1, Activated Partial Thromboplast Time 93H, Sodium Level 139, Potassium Level 3.8, Chloride Level 107 , Carbon Dioxide Level 24, Anion Gap 8, Blood Urea Nitrogen 13, Creatinine 0.75 , Estimat Glomerular Filtration Rate > 60, BUN/Creatinine Ratio 17, Glucose Level 119H, Calcium Level 8.9, Total Bilirubin 0.3, Aspartate Amino Transf (AST/ SGOT) 23, Alanine Aminotransferase (ALT/SGPT) 25, Alkaline Phosphatase 77, Total Protein 6.6, Albumin 3.7 07/24/17 10:56: Activated Partial Thromboplast Time 113H Assessment/Plan Assessment/Plan Assess & Plan/Chief Complaint bilateral papillary thyroid cancer s/p total thyroidectomy with left leg DVT and RLL PE. improving with hep gtt. f/u u/s today. await hematology/oncology input. Clinical Quality Measures DVT/VTE Risk/Contraindication: Risk Factor Score Per Nursin RFS Level Per Nursing on Admit: 4+=Very High SAL HUBER MD Jul 24, 2017 14:33
[2017-07-24] MEDS: LEVOTHYROXINE 50 MCG (LEVOTHROID) TAB PO SCH (14:48)
--- NOTE | 2017-07-24 14:48 | Diagnostic Imaging Report ---
INDICATION: Pulmonary emboli. TECHNIQUE: The bilateral lower extremity venous Doppler study was performed in the routine fashion with color flow Doppler and waveform analysis. FINDINGS: The common femoral veins, superficial femoral veins, and popliteal veins on both sides are patent and compressible. The profunda femoris vein is patent on both sides. There is thrombus again visualized in the left peroneal vein extending down to the ankle. There appears to be some thrombus in the muscular veins in the left calf which was not visualized on the prior study. The visualized tibial veins on the right side are patent. IMPRESSION: Persistent deep vein thrombosis involving the peroneal vein on the left side, similar to the prior study. There appears to be some thrombus in muscular branches in the left calf which was not visualized on the prior study. The remaining structures remain patent. Dictated by: Dictated on workstation # [id number]
[2017-07-24 17:22] VITALS: BP 131/80
--- NOTE | 2017-07-24 19:40 | CONSULTATION REPORT ---
DATE OF SERVICE: 07/24/2017 The patient is admitted to room 418. REFERRING PHYSICIAN: Devendra Gardner MD. PRIMARY PHYSICIAN: Trevor Stratton MD. IMPRESSION: 1. A 66-year-old female admitted with dizziness and found to have a small pulmonary embolism. The patient has history of deep vein thrombosis diagnosed a week ago and was started on oral anticoagulation. 2. Strong family history of deep vein thrombosis, rule out thrombophilia. 3. Recent diagnosis of papillary thyroid cancer, status post total thyroidectomy. RECOMMENDATIONS: 1. I will obtain a factor II and factor V mutation analysis. Rest of the thrombophilia workup cannot be completed as the patient is on anticoagulation. 2. I doubt that her symptoms at the time of admission is related to the small pulmonary embolism noted on a CT angiogram. 3. Okay to switch to oral anticoagulation with Xarelto 15 mg b.i.d. then readied to be discharged. 4. [facility] with me in approximately 3 weeks to follow the pending for cells and we will discuss the duration of anticoagulation based on that. 5. Management of hiatal hernia and gastroesophageal reflux with proton pump inhibitors and antacids as needed. 6. The patient will need a radiation oncology evaluation regarding the thyroid cancer as there was evidence of focal extracapsular extension and she may be a candidate for radioactive iodine therapy. BRIEF HISTORY: The patient is a 66-year-old female who was diagnosed with a thyroid mass and underwent an FNA, which was consistent with a papillary thyroid cancer. She underwent thyroidectomy on 07/12/2017 and was discharged home. She was readmitted to the hospital with diagnosis of left lower extremity DVT following pain and swelling on 07/18/2017. She was initially on heparin followed by Xarelto and discharged home the next day. One day prior to the current admission, the patient had 2 or 3 episodes of dizziness and worsening weakness and was brought to the emergency room again. She had a CT angiogram done, which showed a small pulmonary embolism. She did not have a previous CT angiogram at the time of diagnosis of left lower extremity DVT and it was not sure if this was a new pulmonary embolism. This was present previously. Because of her symptoms, she was admitted to the hospital and hematology consultation was obtained for further recommendations. PAST MEDICAL HISTORY: Significant for hypertension for more than 5 years and is on treatment. She has history of hiatal hernia and gastroesophageal reflux disease in the past and has undergone surgical correction of this in 2009. Recently, she had a recurrence of symptoms and the new hiatal hernia noted on scans. She was diagnosed with a papillary thyroid cancer recently as mentioned above and underwent a total thyroidectomy 2 weeks ago. PAST SURGICAL HISTORY: Include TAHBSO in the distant past, cholecystectomy at the time of Anderson fundoplication in 2009. SOCIAL HISTORY: The patient is and lives in [place], [place]. She has three daughters, all of whom live close by. 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 She does give history of exposure to chemicals during her work as a beautician but denies any history of exposure to chemicals following that. The patient denied any history of tobacco, alcohol or other recreational drug use. FAMILY HISTORY: Significant for her maternal grandfather with blood clots. Her mother had questionable history of blood clots. The patient's sister was diagnosed with bilateral lower extremity DVTs in her early 60s. The patient's niece was diagnosed with DVTs at a younger age. The patient is unsure if either her sister or niece has been tested for thrombophilia. PHYSICAL EXAMINATION: GENERAL: Today showed an elderly female, weak appearing, awake and oriented, otherwise in no acute distress. VITAL SIGNS: Temperature was 98.7, pulse rate 77, respirations 17, blood pressure 131/80 with an oxygen saturation of 97% on 2 liters of oxygen by nasal cannula. HEENT: Normocephalic, extraocular muscles intact, conjunctivae pink, oral mucosa moist. NECK: Supple. No JVD. Healed incision from thyroidectomy noted. No cervical, supraclavicular or axillary lymphadenopathy palpable. CHEST: Symmetrical. LUNGS: Fairly clear to auscultation without wheezes or rales. HEART: Regular in rate and rhythm. No murmurs or gallops heard. ABDOMEN: Soft, nontender with no hepatosplenomegaly or other masses palpable. EXTREMITIES: Showed trace edema of the left lower extremity without palpable cords. NEUROLOGIC: Grossly intact without focal motor deficits. LABORATORY DATA: CBC done today showed WBC 6.3, hemoglobin 13.6, platelet count 462,000 with neutrophil count of 4.0 and lymphocyte count 1.4. Chemistry panel showed normal electrolytes. BUN was 13 and creatinine 0.75 with GFR more than 60 mL per minute. Nonfasting glucose was 119. Liver function studies were within normal limits. At the time of admission, protime was 18.5 with INR of 1.5 and a PTT 39. Currently, patient is on heparin drip with the most recent PTT of 90. CT angiogram of chest done on 07/23/2017 showed no central emboli. Small filling defects within the right lower lobe segmental and subsegmental branches were noted. Multiple shotty lymph nodes throughout the mediastinum are noted similar to her prior CT scan from 09/01/2013. Large hiatal hernia was present. Thank you for allowing me to participate in this patient's care. I will follow the patient with you and make appropriate recommendations. Job ID: [id number] DocumentID: [id number] Dictated Date: 07/24/2017 18:59:20 Creel Operator Date: 07/24/2017 19:39:28 Dictated By: PAM MORENO MD
[2017-07-24 19:47] VITALS: BP 128/80
[2017-07-24] MEDS: RIVAROXABAN 15 MG TABLET (XARELTO) PO SCH (20:37)
[2017-07-24] MEDS ORDERED: RIVAROXABAN PO SCH (21:00)
[2017-07-25] VITALS: BP 129/80
[2017-07-25 04:00] VITALS: BP 112/77
[2017-07-25] MEDS: CATHETER FLUSH 10 ML SYR IV SCH (06:00)
[2017-07-25] MEDS: ONDANSETRON 4 MG/2 ML (SDV) Z0FRAN IVP PRN (07:42)
[2017-07-25] MEDS: PANTOPRAZOLE 40 MG (PROTONIX) TAB PO SCH (07:43)
[2017-07-25] MEDS: LEVOTHYROXINE 50 MCG (LEVOTHROID) TAB PO SCH (07:43)
[2017-07-25 08:00] VITALS: BP 124/78
[2017-07-25] MEDS: RIVAROXABAN 15 MG TABLET (XARELTO) PO SCH (08:37)
[2017-07-25] MEDS ORDERED: amLODIPine 5 MG (NORVASC) TAB PO SCH (09:00)
[2017-07-25] MEDS ORDERED: LOSARTAN 50 MG (COZAAR) TAB PO SCH (09:00)
[2017-07-25] MEDS ORDERED: CAL. POLYCARBOPHIL 625 MG (FIBERCON) TAB PO SCH (09:00)
[2017-07-25] MEDS ORDERED: LEVO100T7 PO (11:31)
--- NOTE | 2017-07-25 11:33 | Discharge Summary-Hospitalist ---
Diagnosis/Chief Complaint Date of Admission Jul 23, 2017 at 16:54 Date of Discharge Discharge Diagnosis Acute pulmonary embolism Papillary thyroid carcinoma status post thyroidectomy on 07/05/[address] Benito uncomplicated Strong family history of thrombophilia GERD Severe weakness and debility Hypoxia requiring home oxygen supplementation at discharge of 2 L/m Discharge Summary Discharge Physical Exam Allergies: Coded Allergies: erythromycin base (Verified Allergy, Severe, HIVES, 07/10/17) Penicillins (Verified Allergy, Mild, 07/10/17) Vitals & I&Os Vital Signs Date Time Temp Pulse Resp B/P (MAP) Pulse Ox O2 Delivery O2 Flow Rate FiO2 07/25/17 12:00 97.6 65 18 122/72 (89) 96 Nasal Cannula 2.00 General Appearance: Alert, Oriented X3, Cooperative HEENT: Atraumatic, PERRLA Respiratory: Clear to Auscultation Cardiovascular: Regular Rate, Normal S1, Normal S2 Abdominal: Normal Bowel Sounds, Soft Extremities: No Clubbing Skin: No Breakdown Neuro: Normal Gait, Normal Speech, Strength at 5/5 X4 Ext Psych/Mental Status: Mental Status NL Hospital Course Notes 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 Stratton as PCP Pt denies having O2 at home. Pt is okay with having O2 short term at home. Pt was informed that we will have her tested for home O2 Pt denies smoking Pt denies pain Pt confirms , but not today Pharmacy as [facility]. Pt states she is already on Xarelto and gets this at [facility]. Pt states she got this rx last week when she was here Pt states she will see Dr. Booker in 2 weeks Pt states she had thyroidectomy with Dr. Benito Physical exam stable. Lungs sounds perfect Pt states her will come to pick her up upon DC Plan: Home O2 eval Follow up with Dr. Stratton next week Keep follow up with Dr. Booker Scribed by Bela Munguia under direct supervision of Dr. Chantel Knutson. Hospital course: Patient had an uneventful hospital course she was doing well until right before admission through the ER when she represented for weakness and shortness of breath found to have a pulmonary embolism on CT scan. Her history is noted to have had a DVT status post thyroidectomy for papillary carcinoma from Dr. Benito she is placed on oral anticoagulation and discharged but she became worsened status so workup ensued and she required heparin initiation along with hematology consultation we will see her in close follow- up in 2 weeks. She had Xarelto already filled at home so she did not need a new prescription. She did require 2 L/m of home oxygen supplementation and that was initiated and social work facilitated those orders. She will have a close follow -up with Dr. Stratton in one week. Labs (last 24 hrs) Laboratory Tests 07/24/17 17:22: Activated Partial Thromboplast Time 90H 07/24/17 23:30: Activated Partial Thromboplast Time 142*H 07/25/17 06:14: Activated Partial Thromboplast Time 145*H Patient resulted labs reviewed. Pending Labs Discussion & Recommendations Discharge Planning: <30 minutes discharge planning Discharge Home Medications: Active Scripts Active Levothyroxine Sodium 100 Mcg Tablet 100 Mcg PO DAILY Reported Calcium + D Soft Chewable Tab (Ca Carbonate/Vitamin D3/Vit K) 1 Each Tab.chew 1 Tab PO DAILY Xarelto Starter Pack (Rivaroxaban) 1 Each Tab.ds.pk 1 Tab PO BID CURRENTLY TAKING 15MG BID Fiber Therapy (Calcium Polycarbophil) 625 Mg Tablet 2 Tab PO DAILY One Daily (Multivitamin) 1 Each Tablet 1 Tab PO DAILY Hydrocodone-Acetamin 7.5-325 (Hydrocodone/Acetaminophen) 1 Each Tablet 1-2 Tab PO Q4H PRN Omeprazole 40 Mg Capsule.dr 40 Mg PO DAILY Losartan Potassium 50 Mg Tablet 50 Mg PO DAILY Amlodipine Besylate 5 Mg Tablet 2.5 Mg PO DAILY TAKES 1/2 (5MG) TABLET Instructions to patient/family Please see electronic discharge instructions given to patient. Clinical Quality Measures DVT/VTE Risk/Contraindication: Risk Factor Score Per Nursin RFS Level Per Nursing on Admit: 4+=Very High CHANTEL KNUTSON DO Jul 25, 2017 11:33
[2017-07-25 12:00] VITALS: BP 122/72
== END 2017-07-25 14:01 | disposition home or self-care (01) | DRG 176 ==
LOC: EDUNIT# 14:11 → ER 14:14 → 4TH 16:54
PROVIDERS: ADMIT Internal Medicine; ATTEND Family Medicine
DX: I26.99 Other pulmonary embolism without acute cor pulmonale (principal); I82.402 Acute embolism and thrombosis of unspecified deep veins of left lower extremity; C73 Malignant neoplasm of thyroid gland; E89.0 Postprocedural hypothyroidism; I10 Essential (primary) hypertension; R05 Cough; R09.02 Hypoxemia; K21.9 Gastro-esophageal reflux disease without esophagitis; K44.9 Diaphragmatic hernia without obstruction or gangrene; K57.90 Diverticulosis of intestine, part unspecified, without perforation or abscess without bleeding; R53.81 Other malaise; R53.1 Weakness; Z79.01 Long term (current) use of anticoagulants; Z82.49 Family history of ischemic heart disease and other diseases of the circulatory system; Z83.2 Family history of diseases of the blood and blood-forming organs and certain disorders involving the immune mechanism
CPT/HCPCS: 36415; 71045; 71275; 80053; 81240; 81241; 84484; 85025; 85610; 85730; 93005; 93041; 93970; 94760; 94761; 96365; 96366

== ENCOUNTER 2017-10-18 09:56 | Outpatient (RCR) | payer MEDICARE, OTHER ==
[~2017-10-18 09:56] MED LIST changes: +CA C1TAB75 PO; +LEVO100T7 PO
[2017-10-18 10:29] LABS: BASOPHILS % (AUTO) 1 % (0-10); EOSINOPHILS # (AUTO) 0.4 10^3/uL (0.0-0.3); EOSINOPHILS % (AUTO) 8 % (0-10); HEMATOCRIT 41 % (35-52); HEMOGLOBIN 13.4 G/DL (11.5-16.0); LYMPHOCYTES # (AUTO) 1.2 X 10^3 (1.0-4.0); LYMPHOCYTES % (AUTO) 26 % (12-44); MEAN CORPUSCULAR HEMOGLOBIN 29 PG (25-34); MEAN CORPUSCULAR HGB CONC 33 G/DL (32-36); MEAN CORPUSCULAR VOLUME 89 FL (80-99); MEAN PLATELET VOLUME 10.3 FL (7.4-10.4); MONOCYTES # (AUTO) 0.5 X 10^3 (0.0-1.0); MONOCYTES % (AUTO) 11 % (0-12); NEUTROPHILS # (AUTO) 2.5 X 10^3 (1.8-7.8); NEUTROPHILS % (AUTO) 54 % (42-75); PLATELET COUNT 357 10^3/uL (130-400); RED CELL DISTRIBUTION WIDTH 14.5 % (10.0-14.5); WHITE BLOOD COUNT 4.7 10^3/uL (4.3-11.0)
[2017-10-18 10:54] LABS: ALANINE AMINOTRANSFERASE 23 U/L (0-55); ALBUMIN 3.9 GM/DL (3.2-4.5); ALKALINE PHOSPHATASE 63 U/L (40-136); BILIRUBIN,TOTAL 0.6 MG/DL (0.1-1.0); BUN/CREATININE RATIO 21; CALCIUM 9.1 MG/DL (8.5-10.1); CARBON DIOXIDE 25 MMOL/L (21-32); CHLORIDE 108 MMOL/L (98-107); CREATININE SERUM 0.85 MG/DL (0.60-1.30); GFR ESTIMATED > 60; GLUCOSE 105 MG/DL (70-105); POTASSIUM 4.2 MMOL/L (3.6-5.0); SODIUM 141 MMOL/L (135-145); TOTAL PROTEIN 6.6 GM/DL (6.4-8.2)
== END 2017-11-15 | disposition home or self-care (01) ==
LOC: ONC 09:56
PROVIDERS: ATTEND Internal Medicine Hematology & Oncology
DX: C73 Malignant neoplasm of thyroid gland (principal); E89.0 Postprocedural hypothyroidism; I27.82 Chronic pulmonary embolism; Z79.01 Long term (current) use of anticoagulants; Z79.899 Other long term (current) drug therapy
CPT/HCPCS: 36415; 80053; 84432; 84443; 85025; 86800; 99204; 99213

== ENCOUNTER → 2017-11-28 | Outpatient (CLI) | payer MEDICARE, OTHER ==
--- NOTE | 2017-11-28 14:21 | Diagnostic Imaging Report ---
INDICATION: Papillary carcinoma of the thyroid with thyroidectomy in June 2017. FINDINGS: Postsurgical changes of thyroidectomy are noted. No residual or recurrent thyroid mass is identified. No fluid collection is identified. IMPRESSION: Status post thyroidectomy. No definite residual or recurrent mass is seen. Dictated by: Dictated on workstation # [id number]
== END ==
LOC: RAD 10:12
PROVIDERS: ATTEND Internal Medicine Endocrinology, Diabetes & Metabolism
DX: C73 Malignant neoplasm of thyroid gland (principal); E89.0 Postprocedural hypothyroidism
CPT/HCPCS: 76536

== ENCOUNTER 2018-01-15 11:05 | Outpatient (RCR) | payer MEDICARE, OTHER ==
[2017-11-29 15:05] LABS: BASOPHILS # (AUTO) 0.1 10^3/uL (0.0-0.1); BASOPHILS % (AUTO) 1 % (0-10); EOSINOPHILS # (AUTO) 0.3 10^3/uL (0.0-0.3); EOSINOPHILS % (AUTO) 6 % (0-10); HEMATOCRIT 42 % (35-52); HEMOGLOBIN 13.7 G/DL (11.5-16.0); LYMPHOCYTES # (AUTO) 1.4 X 10^3 (1.0-4.0); LYMPHOCYTES % (AUTO) 26 % (12-44); MEAN CORPUSCULAR HEMOGLOBIN 29 PG (25-34); MEAN CORPUSCULAR HGB CONC 33 G/DL (32-36); MEAN CORPUSCULAR VOLUME 88 FL (80-99); MEAN PLATELET VOLUME 10.1 FL (7.4-10.4); MONOCYTES # (AUTO) 0.6 X 10^3 (0.0-1.0); MONOCYTES % (AUTO) 11 % (0-12); NEUTROPHILS # (AUTO) 3.1 X 10^3 (1.8-7.8); NEUTROPHILS % (AUTO) 56 % (42-75); PLATELET COUNT 381 10^3/uL (130-400); RED BLOOD COUNT 4.77 10^6/uL (4.35-5.85); WHITE BLOOD COUNT 5.5 10^3/uL (4.3-11.0)
[2017-11-29 15:30] LABS: ALANINE AMINOTRANSFERASE 27 U/L (0-55); ALBUMIN 4.1 GM/DL (3.2-4.5); ALKALINE PHOSPHATASE 75 U/L (40-136); BILIRUBIN,TOTAL 0.4 MG/DL (0.1-1.0); BUN/CREATININE RATIO 18; CALCIUM 9.5 MG/DL (8.5-10.1); CARBON DIOXIDE 24 MMOL/L (21-32); CHLORIDE 110 MMOL/L (98-107); CREATININE SERUM 0.78 MG/DL (0.60-1.30); GFR ESTIMATED > 60; GLUCOSE 100 MG/DL (70-105); POTASSIUM 4.1 MMOL/L (3.6-5.0); SODIUM 142 MMOL/L (135-145)
[~2018-01-15 11:05] MED LIST changes: +AMLO5TAB7 PO; -LOSA50TA36 PO; +LOSA50TA7 PO
== END 2018-02-27 | disposition home or self-care (01) ==
LOC: ONC 11:05
PROVIDERS: ATTEND Internal Medicine Hematology & Oncology
DX: C73 Malignant neoplasm of thyroid gland (principal); E89.0 Postprocedural hypothyroidism; I27.82 Chronic pulmonary embolism; Z79.01 Long term (current) use of anticoagulants; Z79.899 Other long term (current) drug therapy
CPT/HCPCS: 80053; 84432; 84443; 85025; 86800; 99213

== ENCOUNTER → 2018-01-22 | Outpatient (CLI) | payer MEDICARE, OTHER | LOC: CARD 13:21 | PROVIDERS: ATTEND Radiology Radiation Oncology | DX: C73 Malignant neoplasm of thyroid gland (principal) | CPT/HCPCS: 79005 ==

== ENCOUNTER → 2018-02-01 | Outpatient (CLI) | payer MEDICARE, OTHER | LOC: CARD 13:26 | PROVIDERS: ATTEND Radiology Radiation Oncology | DX: C73 Malignant neoplasm of thyroid gland (principal) | CPT/HCPCS: 78018 ==

== ENCOUNTER 2018-04-18 00:23 | Emergency (ER) | payer MEDICARE, OTHER ==
[~2018-04-18] VITALS: Ht 157.5 cm; Wt 70.3 kg
[2018-04-18] MEDS ORDERED: amLODIPine 5 MG (NORVASC) TAB PO ONE (00:45)
[2018-04-18] MEDS ORDERED: LEVO150T6 PO (00:53)
[2018-04-18 00:54] LABS: HEMOGLOBIN 14.3 G/DL (11.5-16.0); MEAN PLATELET VOLUME 9.7 FL (7.4-10.4); RED BLOOD COUNT 4.8 10^6/uL (4.35-5.85); RED CELL DISTRIBUTION WIDTH 14.4 % (10.0-14.5); WHITE BLOOD COUNT 7.9 10^3/uL (4.3-11.0)
[2018-04-18 01:04] LABS: BILIRUBIN,URINE NEGATIVE (NEGATIVE); CLARITY,URINE CLEAR; COLOR,URINE YELLOW; GLUCOSE, URINE (UA) NEGATIVE (NEGATIVE); KETONES,URINE NEGATIVE (NEGATIVE); LEUKOCYTE ESTERASE ,URINE 2+ (NEGATIVE); NITRITE,URINE NEGATIVE (NEGATIVE); PH,URINE 6 (5-9); PROTEIN,URINE NEGATIVE (NEGATIVE); UROBILINOGEN,URINE NORMAL (NORMAL)
[2018-04-18 01:11] LABS: CALCIUM 9.4 MG/DL (8.5-10.1); CREATININE SERUM 0.98 MG/DL (0.60-1.30); POTASSIUM 4.3 MMOL/L (3.6-5.0)
[2018-04-18 01:12] LABS: BACTERIA,URINE TRACE /HPF
[2018-04-18 01:34] LABS: FREE T4 (FREE THYROXINE) 1.5 NG/DL (0.70-1.48)
--- NOTE | 2018-04-18 01:43 | ED General ---
General Chief Complaint: Cardiac/General Problems Stated Complaint: HIGH BLOOD PRESSURE 172/95,SOB Nursing Triage Note: AMBULATORY TO ED WITH C/O NOT FEELING WELL SINCE SUNDAY, LIGHTHEADED, HIGH BP TONIGHT, SOA C/O SINCE DVT/PE IN JUNE (WAS ON BLOOD THINNERS FOR 4 MONTHS AT THAT TIME). DENIES FEVER, COUGH, CHILLS,N/V, OR HEADACHE. Nursing Sepsis Screen: No Definite Risk Source of Information: Patient Exam Limitations: No Limitations History of Present Illness Date Seen by Provider: Apr 18, 2018 Time Seen by Provider: 00:25 Initial Comments This 67-year-old woman presents to the emergency room with complaints of feeling fatigued and lightheaded. She has not been feeling well since 2 days ago. She started taking her blood pressure at home this evening because of the symptoms. She found her blood pressure to be 172/95. Patient had a DVT in June and underwent anticoagulation for 4 months. She has been feeling short of breath since then with no acute change now. She also is being treated with thyroid replacement after a thyroidectomy because of thyroid cancer. She has her thyroid function monitored by Dr. Goodwin and is due for testing very soon. Allergies and Home Medications Allergies Coded Allergies: erythromycin base (Verified Allergy, Severe, HIVES, 07/10/17) Penicillins (Verified Allergy, Mild, 07/10/17) Home Medications Amlodipine Besylate 5 Mg Tablet, 2.5 MG PO DAILY, (Reported) TAKES 1/2 (5MG) TABLET Ca Carbonate/Vitamin D3/Vit K 1 Each Tab.chew, 1 TAB PO DAILY, (Reported) Calcium Polycarbophil 625 Mg Tablet, 2 TAB PO DAILY, (Reported) Levothyroxine Sodium 150 Mcg Tablet, 150 MCG PO DAILY, (Reported) SUN,SUN,SUN,,SUN,SUN Levothyroxine Sodium 150 Mcg Tablet, 225 MCG PO DAILY, (Reported) 1.5 TABS ON SUNDAYS Losartan Potassium 50 Mg Tablet, 50 MG PO DAILY, (Reported) Multivitamin 1 Each Tablet, 1 TAB PO DAILY, (Reported) Omeprazole 40 Mg Capsule.dr, 20 MG PO BID, (Reported) Patient Home Medication List Home Medication List Reviewed: Yes Review of Systems Review of Systems Constitutional: see HPI EENTM: no symptoms reported Respiratory: see HPI Cardiovascular: see HPI Gastrointestinal: no symptoms reported Genitourinary: no symptoms reported Musculoskeletal: no symptoms reported Skin: no symptoms reported Psychiatric/Neurological: No Symptoms Reported Hematologic/Lymphatic: No Symptoms Reported Past Vfbrnqc-Vikyec-Hbkjvo Hx Past Med/Social Hx: Reviewed Nursing Past Med/Soc Hx Patient Social History Alcohol Use: Denies Use Recreational Drug Use: No Smoking Status: Never a Smoker Recent Foreign Travel: No Contact w/Someone Who Travel: No Recent Infectious Disease Expo: No Recent Hopitalizations: No Immunizations Up To Date Date of Pneumonia Vaccine: May 08, 2016 Date of Influenza Vaccine: Feb 04, 2018 Seasonal Allergies Seasonal Allergies: No Past Medical History Surgeries: Yes (cystocele repair, HIATAL HERNIA REPAIR) Gallbladder, Hysterectomy, Oophorectomy, Thyroidectomy Respiratory: Yes (CHRONIC COUGH) Cardiac: Yes (DVT LEFT LEG 07/18/17) Deep Vein Thrombosis, Hypertension Neurological: No Reproductive Disorders: No SERGEANT OF CORRECTIONS 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, Menopausal Sexually Transmitted Disease: No HIV/AIDS: No Genitourinary: Yes UTI-Chronic Gastrointestinal: Yes Gastroesophageal Reflux, Diverticulosis, Hiatal Hernia, Gall Bladder Disease Musculoskeletal: No Endocrine: Yes (THYROID MASS---> THYROID OUT/ THYROID CANCER->THYROIDECTOMY) Hypothyroidsim HEENT: No Loss of Vision: Bilateral Hearing Impairment: Denies Cancer: Yes Thyroid Did You Recieve Any Treatments: Yes What Type of Treatment Did You: Surgical Intervention Psychosocial: No Integumentary: No Blood Disorders: No Adverse Reaction/Blood Tranf: No (N/A) Family Medical History Reviewed Nursing Family Hx Cardiovascular disease 19 FATHER Diabetes mellitus 19 FATHER 19 MOTHER Heart Disease, Cancer, DVT/PE, Diabetes Physical Exam Vital Signs Vital Signs - First Documented 04/18/18 04/18/18 00:30 01:48 Temp 96.8 Pulse 99 Resp 17 B/P (MAP) 179/117 (137) Pulse Ox 93 Capillary Refill : Less Than 3 Seconds Height, Weight, BMI Height: 5'2.00" Weight: 155lbs. 0oz. 70.910338nv; 27.6 BMI Method:Stated General Appearance: No Apparent Distress, WD/WN HEENT: PERRL/EOMI, Normal ENT Inspection Neck: Normal Inspection Respiratory: Lungs Clear, Normal Breath Sounds, No Accessory Muscle Use, No Respiratory Distress Cardiovascular: Regular Rate, Rhythm, No Edema, No Murmur Gastrointestinal: Normal Bowel Sounds, Non Tender Extremity: Normal Inspection, No Pedal Edema Neurologic/Psychiatric: Alert, Oriented x3, No Motor/Sensory Deficits, Normal Mood/Affect, therapeutic dietitian II-XII Norm as Tested Skin: Normal Color, Warm/Dry Progress/Results/Core Measures Suspected Sepsis Recent Fever Within 48 Hours: No Infection Criteria Present: None New/Unexplained Altered Menta: No Sepsis Screen: No Definite Risk SIRS Temperature:96.8 Pulse: 99 Respiratory Rate: 17 Laboratory Tests 04/18/18 00:45: White Blood Count 7.9 Blood Pressure 179 /117 Mean: 137 Laboratory Tests 04/18/18 00:45: Creatinine 0.98, Platelet Count 342 Results/Orders Lab Results Laboratory Tests Test 04/18/18 00:45 04/18/18 00:59 Range/Units White Blood Count 7.9 4.3-11.0 10^3/uL Red Blood Count 4.80 4.35-5.85 10^6/uL Hemoglobin 14.3 11.5-16.0 G/DL Hematocrit 42 35-52 % Mean Corpuscular Volume 88 80-99 FL Mean Corpuscular Hemoglobin 30 25-34 PG Mean Corpuscular Hemoglobin Concent 34 32-36 G/DL Red Cell Distribution Width 14.4 10.0-14.5 % Platelet Count 342 130-400 10^3/uL Mean Platelet Volume 9.7 7.4-10.4 FL Sodium Level 141 135-145 MMOL/L Potassium Level 4.3 3.6-5.0 MMOL/L Chloride Level 108 H 98-107 MMOL/L Carbon Dioxide Level 19 L 21-32 MMOL/L Anion Gap 14 5-14 MMOL/L Blood Urea Nitrogen 17 7-18 MG/DL Creatinine 0.98 0.60-1.30 MG/DL Estimat Glomerular Filtration Rate 56 BUN/Creatinine Ratio 17 Glucose Level 127 H 70-105 MG/DL Calcium Level 9.4 8.5-10.1 MG/DL Thyroid Stimulating Hormone (TSH) 0.17 L 0.35-4.94 UIU/ML Free Thyroxine 1.50 H 0.70-1.48 NG/DL Urine Color YELLOW Urine Clarity CLEAR Urine pH 6 5-9 Urine Specific [place] 1.020 1.016-1.022 Urine Protein NEGATIVE NEGATIVE Urine Glucose (UA) NEGATIVE NEGATIVE Urine Ketones NEGATIVE NEGATIVE Urine Nitrite NEGATIVE NEGATIVE Urine Bilirubin NEGATIVE NEGATIVE Urine Urobilinogen NORMAL NORMAL MG/DL Urine Leukocyte Esterase 2+ H NEGATIVE Urine RBC (Auto) NEGATIVE NEGATIVE Urine RBC NONE /HPF Urine WBC 2-5 /HPF Urine Squamous Epithelial Cells 5-10 /HPF Urine Crystals NONE /LPF Urine Bacteria TRACE /HPF Urine Casts NONE /LPF Urine Mucus NEGATIVE /LPF Urine Culture Indicated NO My Orders Orders - GREGORIA BARNES MD Basic Metabolic Panel (04/18/18 00:45) Cbc No Diff (04/18/18 00:45) Thyroid Stimulating Hormone (04/18/18 00:45) Free T4 (Free Thyroxine) (04/18/18 00:45) Saline Lock/Iv-Start (04/18/18 00:45) Ua Culture If Indicated (04/18/18 00:45) Amlodipine Tablet (Norvasc Tablet) (04/18/18 00:45) Vital Signs/I&O 04/18/18 12 00:30 01:48 Temp 96.8 96.8 Pulse 99 82 Resp 17 17 B/P (MAP) 179/117 (137) 151/100 (117) Pulse Ox 93 Capillary Refill : Less Than 3 Seconds Blood Pressure Mean: 137 Progress Note : Progress Note Patient's labs were assessed. She was found to have an elevated T4 and a decreased TSH. She may be overtreated with her thyroid medication which may be contributing to her hypertension. She was given an additional amlodipine 2.5 mg. Blood pressure was trending down at the time of dismissal. Departure Impression Primary Impression: Hypertensive urgency Additional Impressions: Thyroid dysfunction Fatigue Qualified Codes: R53.83 - Other fatigue Disposition: 01 HOME, SELF-CARE Condition: Improved Departure-Patient Inst. Decision time for Depature: 01:41 Referrals: MITUL DURAN MD (PCP/Family) Primary Care Physician Patient Instructions: High Blood Pressure (DC) Add. Discharge Instructions: Drink plenty of clear liquids. Follow-up with your primary care provider soon as possible regarding blood pressure management. In the meantime, you may increase your amlodipine to 5 mg daily for necessary to control blood pressure. Contact Dr. Goodwin early tomorrow morning for further instructions on your thyroid medication. Your dosing may be too high at this time which might also be contributing to your high blood pressure. Return to care if you have worsening symptoms. All discharge instructions reviewed with patient and/or family. Voiced understanding. GREGORIA BARNES MD Apr 18, 2018 01:43
[2018-04-18 01:48] VITALS: BP 151/100
== END 2018-04-18 01:49 | disposition home or self-care (01) ==
LOC: EDUNIT# 00:23 → ER 00:25
DX: I16.0 Hypertensive urgency (principal); R53.83 Other fatigue; E03.9 Hypothyroidism, unspecified; I10 Essential (primary) hypertension; K21.9 Gastro-esophageal reflux disease without esophagitis; Z87.19 Personal history of other diseases of the digestive system; Z87.440 Personal history of urinary (tract) infections; Z90.710 Acquired absence of both cervix and uterus; Z88.1 Allergy status to other antibiotic agents; Z88.0 Allergy status to penicillin; Z86.718 Personal history of other venous thrombosis and embolism; Z79.01 Long term (current) use of anticoagulants; Z85.850 Personal history of malignant neoplasm of thyroid
CPT/HCPCS: 36415; 80048; 81000; 84439; 84443; 85027

== ENCOUNTER → 2018-05-08 | Outpatient (CLI) | payer MEDICARE, OTHER ==
[~2018-05-08] MED LIST changes: +LEVO150T6 PO
--- NOTE | 2018-05-08 12:30 | Diagnostic Imaging Report ---
INDICATION: Routine screening. Comparison is made with prior mammogram from 11/14/2016 and 01/13/2015. 2-D and 3-D bilateral screening mammography was performed with a Computer Aided Detection (CAD) system. FINDINGS: Both breasts are heterogeneously dense, limiting the sensitivity of mammography. The parenchymal pattern is stable. No mass or malignant appearing microcalcifications are seen. Axillae are unremarkable. IMPRESSION: No mammographic features suspicious for malignancy are identified. ACR BI-RADS Category 1: Negative. Result letter will be mailed to the patient. Note: At least 10% of breast cancer is not imaged by mammography. Dictated by: Dictated on workstation # [id number]
== END ==
LOC: RAD 09:54
PROVIDERS: ATTEND Nurse Practitioner Family
DX: Z12.31 Encounter for screening mammogram for malignant neoplasm of breast (principal)
CPT/HCPCS: 77067

== ENCOUNTER → 2018-08-06 | Outpatient (RCR) | payer MEDICARE, OTHER ==
[2018-05-08 10:30] LABS: BASOPHILS # (AUTO) 0.1 10^3/uL (0.0-0.1); BASOPHILS % (AUTO) 1 % (0-10); EOSINOPHILS # (AUTO) 0.5 10^3/uL (0.0-0.3); EOSINOPHILS % (AUTO) 10 % (0-10); HEMATOCRIT 43 % (35-52); LYMPHOCYTES # (AUTO) 1.1 X 10^3 (1.0-4.0); LYMPHOCYTES % (AUTO) 24 % (12-44); MEAN CORPUSCULAR HEMOGLOBIN 29 PG (25-34); MEAN CORPUSCULAR HGB CONC 33 G/DL (32-36); MEAN CORPUSCULAR VOLUME 90 FL (80-99); MEAN PLATELET VOLUME 10.1 FL (7.4-10.4); MONOCYTES # (AUTO) 0.7 X 10^3 (0.0-1.0); MONOCYTES % (AUTO) 15 % (0-12); NEUTROPHILS # (AUTO) 2.3 X 10^3 (1.8-7.8); NEUTROPHILS % (AUTO) 50 % (42-75); PLATELET COUNT 323 10^3/uL (130-400); RED CELL DISTRIBUTION WIDTH 13.8 % (10.0-14.5); WHITE BLOOD COUNT 4.7 10^3/uL (4.3-11.0)
[2018-05-08 10:52] LABS: ALANINE AMINOTRANSFERASE 23 U/L (0-55); ALBUMIN 4.4 GM/DL (3.2-4.5); ALKALINE PHOSPHATASE 72 U/L (40-136); BILIRUBIN,TOTAL 0.7 MG/DL (0.1-1.0); BUN/CREATININE RATIO 19; CALCIUM 9.5 MG/DL (8.5-10.1); CARBON DIOXIDE 24 MMOL/L (21-32); CHLORIDE 107 MMOL/L (98-107); CREATININE SERUM 0.84 MG/DL (0.60-1.30); GFR ESTIMATED > 60; GLUCOSE 99 MG/DL (70-105); SODIUM 140 MMOL/L (135-145); TOTAL PROTEIN 7.3 GM/DL (6.4-8.2)
[~2018-08-06] MED LIST changes: -AMLO5TAB7 PO; +AMLO5TAB9 PO; +LOSA50TA63 PO; -LOSA50TA7 PO; -MULT-324 PO; +MULT-834 PO; -RIVA15TA PO; +RIVA15TA2 PO; -RIVA20TA PO; +RIVA20TA2 PO
[2018-08-06 10:42] LABS: BASOPHILS % (AUTO) 1 % (0-10); EOSINOPHILS # (AUTO) 0.3 10^3/uL (0.0-0.3); EOSINOPHILS % (AUTO) 7 % (0-10); HEMATOCRIT 41 % (35-52); HEMOGLOBIN 13.7 G/DL (11.5-16.0); LYMPHOCYTES # (AUTO) 1.2 X 10^3 (1.0-4.0); LYMPHOCYTES % (AUTO) 27 % (12-44); MEAN CORPUSCULAR HEMOGLOBIN 30 PG (25-34); MEAN CORPUSCULAR HGB CONC 34 G/DL (32-36); MEAN CORPUSCULAR VOLUME 89 FL (80-99); MEAN PLATELET VOLUME 9.9 FL (7.4-10.4); MONOCYTES # (AUTO) 0.6 X 10^3 (0.0-1.0); MONOCYTES % (AUTO) 15 % (0-12); NEUTROPHILS # (AUTO) 2.2 X 10^3 (1.8-7.8); NEUTROPHILS % (AUTO) 51 % (42-75); PLATELET COUNT 332 10^3/uL (130-400); RED CELL DISTRIBUTION WIDTH 13.9 % (10.0-14.5); WHITE BLOOD COUNT 4.3 10^3/uL (4.3-11.0)
[2018-08-06 11:05] LABS: ALANINE AMINOTRANSFERASE 42 U/L (0-55); ALKALINE PHOSPHATASE 77 U/L (40-136); BILIRUBIN,TOTAL 0.6 MG/DL (0.1-1.0); BUN/CREATININE RATIO 19; CALCIUM 9.2 MG/DL (8.5-10.1); CARBON DIOXIDE 24 MMOL/L (21-32); CHLORIDE 110 MMOL/L (98-107); CREATININE SERUM 0.81 MG/DL (0.60-1.30); GFR ESTIMATED > 60; GLUCOSE 98 MG/DL (70-105); POTASSIUM 4.1 MMOL/L (3.6-5.0); SODIUM 141 MMOL/L (135-145); TOTAL PROTEIN 6.9 GM/DL (6.4-8.2)
== END | disposition home or self-care (01) ==
LOC: ONC 05-08 10:19
PROVIDERS: ATTEND Internal Medicine Hematology & Oncology
DX: C73 Malignant neoplasm of thyroid gland (principal); E89.0 Postprocedural hypothyroidism; I27.82 Chronic pulmonary embolism; Z79.01 Long term (current) use of anticoagulants; Z79.899 Other long term (current) drug therapy
CPT/HCPCS: 36415; 80053; 84432; 84443; 85025; 86800; 99213

== ENCOUNTER → 2018-11-12 | Outpatient (RCR) | payer MEDICARE, OTHER ==
[2018-09-26 11:08] LABS: BASOPHILS # (AUTO) 0.1 10^3/uL (0.0-0.1); BASOPHILS % (AUTO) 1 % (0-10); EOSINOPHILS # (AUTO) 0.3 10^3/uL (0.0-0.3); EOSINOPHILS % (AUTO) 7 % (0-10); HEMATOCRIT 41 % (35-52); HEMOGLOBIN 13.8 G/DL (11.5-16.0); LYMPHOCYTES # (AUTO) 1.3 X 10^3 (1.0-4.0); LYMPHOCYTES % (AUTO) 27 % (12-44); MEAN CORPUSCULAR HEMOGLOBIN 29 PG (25-34); MEAN CORPUSCULAR HGB CONC 34 G/DL (32-36); MEAN CORPUSCULAR VOLUME 87 FL (80-99); MEAN PLATELET VOLUME 9.8 FL (7.4-10.4); MONOCYTES # (AUTO) 0.5 X 10^3 (0.0-1.0); MONOCYTES % (AUTO) 12 % (0-12); NEUTROPHILS # (AUTO) 2.5 X 10^3 (1.8-7.8); NEUTROPHILS % (AUTO) 53 % (42-75); PLATELET COUNT 301 10^3/uL (130-400); RED CELL DISTRIBUTION WIDTH 13.6 % (10.0-14.5); WHITE BLOOD COUNT 4.7 10^3/uL (4.3-11.0)
[2018-11-06 09:45] LABS: BASOPHILS % (AUTO) 1 % (0-10); EOSINOPHILS # (AUTO) 0.4 10^3/uL (0.0-0.3); EOSINOPHILS % (AUTO) 9 % (0-10); HEMATOCRIT 42 % (35-52); HEMOGLOBIN 13.6 G/DL (11.5-16.0); LYMPHOCYTES # (AUTO) 1.4 X 10^3 (1.0-4.0); LYMPHOCYTES % (AUTO) 32 % (12-44); MEAN CORPUSCULAR HEMOGLOBIN 29 PG (25-34); MEAN CORPUSCULAR HGB CONC 33 G/DL (32-36); MEAN CORPUSCULAR VOLUME 88 FL (80-99); MONOCYTES # (AUTO) 0.6 X 10^3 (0.0-1.0); MONOCYTES % (AUTO) 14 % (0-12); NEUTROPHILS # (AUTO) 1.9 X 10^3 (1.8-7.8); NEUTROPHILS % (AUTO) 44 % (42-75); PLATELET COUNT 299 10^3/uL (130-400); RED CELL DISTRIBUTION WIDTH 13.9 % (10.0-14.5); WHITE BLOOD COUNT 4.4 10^3/uL (4.3-11.0)
[2018-11-06 10:00] LABS: ALANINE AMINOTRANSFERASE 35 U/L (0-55); ALKALINE PHOSPHATASE 81 U/L (40-136); BILIRUBIN,TOTAL 0.4 MG/DL (0.1-1.0); BUN/CREATININE RATIO 20; CALCIUM 9.1 MG/DL (8.5-10.1); CARBON DIOXIDE 23 MMOL/L (21-32); CHLORIDE 110 MMOL/L (98-107); GFR ESTIMATED > 60; GLUCOSE 103 MG/DL (70-105); POTASSIUM 4.7 MMOL/L (3.6-5.0); SODIUM 142 MMOL/L (135-145); TOTAL PROTEIN 6.6 GM/DL (6.4-8.2)
== END | disposition home or self-care (01) ==
LOC: ONC 08-14 09:49
PROVIDERS: ATTEND Internal Medicine Hematology & Oncology
DX: C73 Malignant neoplasm of thyroid gland (principal); E89.0 Postprocedural hypothyroidism; Z86.711 Personal history of pulmonary embolism; Z86.718 Personal history of other venous thrombosis and embolism; Z79.899 Other long term (current) drug therapy
CPT/HCPCS: 36415; 80053; 84432; 84443; 85025; 86800; 99213

== ENCOUNTER 2019-02-12 10:08 | Outpatient (RCR) | payer MEDICARE, OTHER ==
[2019-02-06 12:13] LABS: BASOPHILS # (AUTO) 0.1 10^3/uL (0.0-0.1); BASOPHILS % (AUTO) 1 % (0-10); EOSINOPHILS # (AUTO) 0.4 10^3/uL (0.0-0.3); EOSINOPHILS % (AUTO) 9 % (0-10); HEMATOCRIT 42 % (35-52); HEMOGLOBIN 13.7 G/DL (11.5-16.0); LYMPHOCYTES # (AUTO) 1.3 X 10^3 (1.0-4.0); LYMPHOCYTES % (AUTO) 29 % (12-44); MEAN CORPUSCULAR HEMOGLOBIN 29 PG (25-34); MEAN CORPUSCULAR HGB CONC 33 G/DL (32-36); MEAN CORPUSCULAR VOLUME 89 FL (80-99); MEAN PLATELET VOLUME 9.8 FL (7.4-10.4); MONOCYTES # (AUTO) 0.4 X 10^3 (0.0-1.0); MONOCYTES % (AUTO) 10 % (0-12); NEUTROPHILS # (AUTO) 2.2 X 10^3 (1.8-7.8); NEUTROPHILS % (AUTO) 52 % (42-75); PLATELET COUNT 321 10^3/uL (130-400); RED CELL DISTRIBUTION WIDTH 14.1 % (10.0-14.5); WHITE BLOOD COUNT 4.3 10^3/uL (4.3-11.0)
[2019-02-06 12:33] LABS: ALANINE AMINOTRANSFERASE 27 U/L (0-55); ALBUMIN 3.9 GM/DL (3.2-4.5); ALKALINE PHOSPHATASE 74 U/L (40-136); BILIRUBIN,TOTAL 0.4 MG/DL (0.1-1.0); BUN/CREATININE RATIO 21; CALCIUM 8.9 MG/DL (8.5-10.1); CARBON DIOXIDE 23 MMOL/L (21-32); CHLORIDE 108 MMOL/L (98-107); CREATININE SERUM 0.81 MG/DL (0.60-1.30); GFR ESTIMATED > 60; GLUCOSE 133 MG/DL (70-105); SODIUM 140 MMOL/L (135-145); TOTAL PROTEIN 6.8 GM/DL (6.4-8.2)
== END 2019-03-23 | disposition home or self-care (01) ==
LOC: ONC 10:08
PROVIDERS: ATTEND Internal Medicine Hematology & Oncology
DX: C73 Malignant neoplasm of thyroid gland (principal); E89.0 Postprocedural hypothyroidism; Z86.711 Personal history of pulmonary embolism; Z86.718 Personal history of other venous thrombosis and embolism; Z79.899 Other long term (current) drug therapy
CPT/HCPCS: 36415; 80053; 84432; 84443; 85025; 86800; 99213

== ENCOUNTER 2019-04-01 13:10 | Outpatient (RCR) | payer MEDICARE, OTHER ==
[~2019-04-01 13:10] MED LIST changes: +OMEP40CA27 PO; -OMEP40CA36 PO
[2019-04-17] MEDS ORDERED: ONDA4TAB11 PO (12:37)
[2019-06-04 09:05] LABS: BASOPHILS % (AUTO) 1 % (0-10); EOSINOPHILS # (AUTO) 0.3 10^3/uL (0.0-0.3); EOSINOPHILS % (AUTO) 5 % (0-10); HEMATOCRIT 42 % (35-52); HEMOGLOBIN 13.9 G/DL (11.5-16.0); LYMPHOCYTES # (AUTO) 0.7 X 10^3 (1.0-4.0); LYMPHOCYTES % (AUTO) 13 % (12-44); MEAN CORPUSCULAR HEMOGLOBIN 30 PG (25-34); MEAN CORPUSCULAR HGB CONC 33 G/DL (32-36); MEAN CORPUSCULAR VOLUME 91 FL (80-99); MEAN PLATELET VOLUME 10.1 FL (7.4-10.4); MONOCYTES # (AUTO) 0.6 X 10^3 (0.0-1.0); MONOCYTES % (AUTO) 11 % (0-12); NEUTROPHILS # (AUTO) 3.7 X 10^3 (1.8-7.8); NEUTROPHILS % (AUTO) 70 % (42-75); PLATELET COUNT 292 10^3/uL (130-400); RED CELL DISTRIBUTION WIDTH 15.4 % (10.0-14.5); WHITE BLOOD COUNT 5.3 10^3/uL (4.3-11.0)
[2019-06-04 09:23] LABS: ALBUMIN 4.2 GM/DL (3.2-4.5); BILIRUBIN,TOTAL 0.4 MG/DL (0.1-1.0); CALCIUM 9.2 MG/DL (8.5-10.1); CREATININE SERUM 0.95 MG/DL (0.60-1.30); POTASSIUM 3.8 MMOL/L (3.6-5.0)
== END 2019-06-12 10:08 | disposition home or self-care (01) ==
LOC: ONC 13:10
PROVIDERS: ATTEND Internal Medicine Hematology & Oncology
DX: C73 Malignant neoplasm of thyroid gland (principal); E89.0 Postprocedural hypothyroidism; E03.8 Other specified hypothyroidism; Z86.711 Personal history of pulmonary embolism; Z86.718 Personal history of other venous thrombosis and embolism; Z79.899 Other long term (current) drug therapy; Z98.890 Other specified postprocedural states
CPT/HCPCS: 80053; 84443; 85025; 86800

== ENCOUNTER 2019-04-11 10:30 | Emergency (ER) | payer MEDICARE, OTHER ==
[~2019-04-11] VITALS: Ht 157 cm; Wt 72.0 kg
[~2019-04-11 10:30] MED LIST changes: -OMEP40CA27 PO; +OMEP40CA36 PO
[2019-04-11] MEDS ORDERED: NS IV 1000 ML 1,000 ML IV SCH (12:15)
[2019-04-11 12:21] LABS: BASOPHILS % (AUTO) 0 % (0-10); EOSINOPHILS # (AUTO) 0.1 10^3/uL (0.0-0.3); EOSINOPHILS % (AUTO) 2 % (0-10); HEMATOCRIT 40 % (35-52); HEMOGLOBIN 13.4 G/DL (11.5-16.0); LYMPHOCYTES # (AUTO) 0.4 X 10^3 (1.0-4.0); LYMPHOCYTES % (AUTO) 7 % (12-44); MEAN CORPUSCULAR HEMOGLOBIN 29 PG (25-34); MEAN CORPUSCULAR HGB CONC 33 G/DL (32-36); MEAN CORPUSCULAR VOLUME 88 FL (80-99); MONOCYTES # (AUTO) 0.7 X 10^3 (0.0-1.0); MONOCYTES % (AUTO) 12 % (0-12); NEUTROPHILS # (AUTO) 4.4 X 10^3 (1.8-7.8); NEUTROPHILS % (AUTO) 79 % (42-75); PLATELET COUNT 251 10^3/uL (130-400); RED CELL DISTRIBUTION WIDTH 14.7 % (10.0-14.5); WHITE BLOOD COUNT 5.6 10^3/uL (4.3-11.0)
--- NOTE | 2019-04-11 12:22 | ED General ---
General Chief Complaint: Fever-Adult/Adol Stated Complaint: WEAKNESS;FEVER Nursing Triage Note: ARRIVED VIA AMB TO ROOM 01 WITH COMPLAINTS OF A FEVER AND BILAT LEG PAIN. STATES SHE HAS BEEN SEEN BY HER DR AND DX WITH A SINUS INFECTION AND A VIRUS AND WAS PUT ON BACTRIM. Nursing Sepsis Screen: Possible Severe Sepsis Risk Source of Information: Patient Exam Limitations: No Limitations History of Present Illness Date Seen by Provider: Apr 11, 2019 Time Seen by Provider: 12:21 Initial Comments To ER with reports of fever and bilateral leg pain. She was seen by her doctor earlier this week diagnosed with a sinus infection because of some pressure behind her ears, nasal congestion, cough, rhinorrhea and sore throat. She was started on Bactrim. Today she developed the leg pain and presents to the emergency room. Does not wear oxygen at home though she does have oxygen at home from a pulmonary embolism in March 2018, she is not currently on anticoagulation but she denies tachycardia palpitations or shortness of breath. Allergies and Home Medications Allergies Coded Allergies: erythromycin base (Verified Allergy, Severe, HIVES, 07/10/17) Penicillins (Verified Allergy, Mild, 07/10/17) Home Medications Amlodipine Besylate 5 Mg Tablet, 2.5 MG PO DAILY, (Reported) TAKES 1/2 (5MG) TABLET Ca Carbonate/Vitamin D3/Vit K 1 Each Tab.chew, 1 TAB PO DAILY, (Reported) Calcium Polycarbophil 625 Mg Tablet, 2 TAB PO DAILY, (Reported) Levothyroxine Sodium 150 Mcg Tablet, 150 MCG PO DAILY, (Reported) SUN,SUN,SUN,,SUN,SUN Levothyroxine Sodium 150 Mcg Tablet, 225 MCG PO DAILY, (Reported) 1.5 TABS ON SUNDAYS Losartan Potassium 50 Mg Tablet, 50 MG PO DAILY, (Reported) Multivitamin 1 Each Tablet, 1 TAB PO DAILY, (Reported) Omeprazole 40 Mg Capsule., 20 MG PO BID, (Reported) Patient Home Medication List Home Medication List Reviewed: Yes Review of Systems Review of Systems Constitutional: see HPI EENTM: see HPI Respiratory: no symptoms reported Cardiovascular: no symptoms reported Genitourinary: no symptoms reported Musculoskeletal: no symptoms reported Skin: no symptoms reported Psychiatric/Neurological: No Symptoms Reported Hematologic/Lymphatic: No Symptoms Reported Past Zmlohps-Igriae-Tclmkm Hx Patient Social History Alcohol Use: Denies Use Recreational Drug Use: No Smoking Status: Never a Smoker Recent Foreign Travel: No Contact w/Someone Who Travel: No Recent Infectious Disease Expo: No Recent Hopitalizations: No Immunizations Up To Date Date of Pneumonia Vaccine: May 08, 2016 Date of Influenza Vaccine: Feb 04, 2018 Seasonal Allergies Seasonal Allergies: No Past Medical History Surgeries: Yes (cystocele repair, HIATAL HERNIA REPAIR) Gallbladder, Hysterectomy, Oophorectomy, Thyroidectomy Respiratory: Yes (CHRONIC COUGH) Cardiac: Yes (DVT LEFT LEG 07/18/17) Deep Vein Thrombosis, Hypertension Neurological: No Reproductive Disorders: No 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, 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 Sexually Transmitted Disease: No HIV/AIDS: No Genitourinary: Yes UTI-Chronic Gastrointestinal: Yes Gastroesophageal Reflux, Diverticulosis, Hiatal Hernia, Gall Bladder Disease Musculoskeletal: No Endocrine: Yes (THYROID MASS---> THYROID OUT/ THYROID CANCER->THYROIDECTOMY) Hypothyroidsim HEENT: No Loss of Vision: Bilateral Hearing Impairment: Denies Cancer: Yes Thyroid Did You Recieve Any Treatments: Yes What Type of Treatment Did You: Surgical Intervention Psychosocial: No Integumentary: No Blood Disorders: No Adverse Reaction/Blood Tranf: No (N/A) Family Medical History Cardiovascular disease 19 FATHER Diabetes mellitus 19 FATHER 19 MOTHER Heart Disease, Cancer, DVT/PE, Diabetes Physical Exam Vital Signs Vital Signs - First Documented 04/11/19 04/11/19 11:25 11:44 Temp 37.3 Pulse 103 Resp 16 B/P (MAP) 131/77 (95) Pulse Ox 89 O2 Delivery Room Air O2 Flow Rate 2.00 FiO2 89 Capillary Refill : Less Than 3 Seconds Height, Weight, BMI Height: 5'2.00" Weight: 155lbs. 0oz. [id number]; 29.00 BMI Method:Stated General Appearance: No Apparent Distress, WD/WN Eyes: Bilateral Eye Normal Inspection, Bilateral Eye PERRL, Bilateral Eye EOMI HEENT: PERRL/EOMI, TMs Normal Neck: Full Range of Motion, Normal Inspection Respiratory: No Accessory Muscle Use, No Respiratory Distress Gastrointestinal: Normal Bowel Sounds, Non Tender, Soft Extremity: Normal Capillary Refill, Normal Inspection Neurologic/Psychiatric: Alert, Oriented x3 Skin: Normal Color, Warm/Dry Progress/Results/Core Measures Suspected Sepsis Recent Fever Within 48 Hours: Yes Infection Criteria Present: Documented Infection New/Unexplained Altered Menta: No Sepsis Screen: Possible Severe Sepsis Risk SIRS Temperature: Pulse: 103 Respiratory Rate: 16 Laboratory Tests 04/11/19 12:05: White Blood Count 5.6 Blood Pressure 131 /77 Mean: 95 Laboratory Tests 04/11/19 12:05: Creatinine 0.95, Platelet Count 251, Total Bilirubin 0.3 Results/Orders Lab Results Laboratory Tests Test 04/11/19 12:05 04/11/19 12:35 Range/Units White Blood Count 5.6 4.3-11.0 10^3/uL Red Blood Count 4.58 4.35-5.85 10^6/uL Hemoglobin 13.4 11.5-16.0 G/DL Hematocrit 40 35-52 % Mean Corpuscular Volume 88 80-99 FL Mean Corpuscular Hemoglobin 29 25-34 PG Mean Corpuscular Hemoglobin Concent 33 32-36 G/DL Red Cell Distribution Width 14.7 H 10.0-14.5 % Platelet Count 251 130-400 10^3/uL Mean Platelet Volume 10.0 7.4-10.4 FL Neutrophils (%) (Auto) 79 H 42-75 % Lymphocytes (%) (Auto) 7 L 12-44 % Monocytes (%) (Auto) 12 0-12 % Eosinophils (%) (Auto) 2 0-10 % Basophils (%) (Auto) 0 0-10 % Neutrophils # (Auto) 4.4 1.8-7.8 X 10^3 Lymphocytes # (Auto) 0.4 L 1.0-4.0 X 10^3 Monocytes # (Auto) 0.7 0.0-1.0 X 10^3 Eosinophils # (Auto) 0.1 0.0-0.3 10^3/uL Basophils # (Auto) 0.0 0.0-0.1 10^3/uL Neutrophils % (Manual) 80 % Lymphocytes % (Manual) 7 % Monocytes % (Manual) 5 % Eosinophils % (Manual) 3 % Basophils % (Manual) 0 % Band Neutrophils 5 % Elliptocytes SLIGHT Sodium Level 136 135-145 MMOL/L Potassium Level 3.8 3.6-5.0 MMOL/L Chloride Level 105 98-107 MMOL/L Carbon Dioxide Level 22 21-32 MMOL/L Anion Gap 9 5-14 MMOL/L Blood Urea Nitrogen 10 7-18 MG/DL Creatinine 0.95 0.60-1.30 MG/DL Estimat Glomerular Filtration Rate 58 BUN/Creatinine Ratio 11 Glucose Level 108 H 70-105 MG/DL Calcium Level 8.5 8.5-10.1 MG/DL Corrected Calcium 8.5 8.5-10.1 MG/DL Total Bilirubin 0.3 0.1-1.0 MG/DL Aspartate Amino Transf (AST/SGOT) 35 H 5-34 U/L Alanine Aminotransferase (ALT/SGPT) 40 0-55 U/L Alkaline Phosphatase 70 40-136 U/L Total Protein 6.9 6.4-8.2 GM/DL Albumin 4.0 3.2-4.5 GM/DL Urine Color YELLOW Urine Clarity CLEAR Urine pH 6.0 5-9 Urine Specific [place] 1.010 L 1.016-1.022 Urine Protein NEGATIVE NEGATIVE Urine Glucose (UA) NEGATIVE NEGATIVE Urine Ketones NEGATIVE NEGATIVE Urine Nitrite NEGATIVE NEGATIVE Urine Bilirubin NEGATIVE NEGATIVE Urine Urobilinogen 0.2 < = 1.0 MG/DL Urine Leukocyte Esterase NEGATIVE NEGATIVE Urine RBC (Auto) NEGATIVE NEGATIVE Urine RBC NONE /HPF Urine WBC 0-2 /HPF Urine Squamous Epithelial Cells 0-2 /HPF Urine Crystals NONE /LPF Urine Bacteria NEGATIVE /HPF Urine Casts NONE /LPF Urine Mucus NEGATIVE /LPF Urine Culture Indicated NO Micro Results Microbiology 04/11/19 Influenza Types A,B Antigen (ASHISH) - Final, Complete My Orders 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 Cbc With Automated Diff (04/11/19 12:12) Comprehensive Metabolic Panel (04/11/19 12:12) Ua Culture If Indicated (04/11/19 12:12) Ed Iv/Invasive Line Start (04/11/19 12:12) Chest 1 View, Ap/Pa Only (04/11/19 12:12) Ns Iv 1000 Ml (Sodium Chloride 0.9%) (04/11/19 12:15) Influenza A And B Antigens (04/11/19 12:17) Ketorolac Injection (Toradol Injection) (04/11/19 12:30) Manual Differential (04/11/19 12:05) Medications Given in ED Current Medications Medications Dose Ordered Sig/Paula Route Start Time Stop Time Status Last Admin Dose Admin Ketorolac Tromethamine 15 mg ONCE ONCE IVP 04/11/19 12:30 04/11/19 12:31 DC 04/11/19 12:28 15 MG Vital Signs/I&O 04/11/19 04/11/19 04/11/19 11:25 11:44 13:22 Temp 37.3 Pulse 103 77 Resp 16 16 B/P (MAP) 131/77 (95) 125/77 Pulse Ox 89 92 O2 Delivery Room Air Nasal Cannula Room Air O2 Flow Rate 2.00 FiO2 89 Capillary Refill : Less Than 3 Seconds Blood Pressure Mean: 95 POS Departure Impression Primary Impression: Viral syndrome Additional Impression: Myalgia Disposition: HOME, SELF-CARE Condition: Stable Departure-Patient Inst. Decision time for Depature: 13:11 Referrals: MITUL DURAN MD (PCP/Family) Primary Care Physician Patient Instructions: Viral Syndrome (DC) Add. Discharge Instructions: 1. Tylenol and ibuprofen for pain or fever control 2. Return to ER for any concerns 3. Follow-up with your doctor next week All discharge instructions reviewed with patient and/or family. Voiced understanding. VIOLETA PÉREZ APRN Apr 11, 2019 12:22 POS
[2019-04-11] MEDS ORDERED: KETOROLAC 30 MG/ML VIAL IVP ONE (12:30)
[2019-04-11 12:42] LABS: BILIRUBIN,TOTAL 0.3 MG/DL (0.1-1.0); CALCIUM 8.5 MG/DL (8.5-10.1); CREATININE SERUM 0.95 MG/DL (0.60-1.30); POTASSIUM 3.8 MMOL/L (3.6-5.0); TOTAL PROTEIN 6.9 GM/DL (6.4-8.2)
[2019-04-11 12:45] LABS: BILIRUBIN,URINE NEGATIVE (NEGATIVE); CLARITY,URINE CLEAR; COLOR,URINE YELLOW; GLUCOSE, URINE (UA) NEGATIVE (NEGATIVE); KETONES,URINE NEGATIVE (NEGATIVE); LEUKOCYTE ESTERASE ,URINE NEGATIVE (NEGATIVE); NITRITE,URINE NEGATIVE (NEGATIVE); PROTEIN,URINE NEGATIVE (NEGATIVE)
[2019-04-11 12:52] LABS: BAND NEUTROPHILS 5 %; BASOPHILS % (MANUAL) 0 %; ELLIPT/OVALOCYTES SLIGHT; EOSINOPHILS % (MANUAL) 3 %; LYMPHOCYTES % (MANUAL) 7 %; MONOCYTES % (MANUAL) 5 %; NEUTROPHILS % (MANUAL) 80 %
[2019-04-11 13:00] LABS: BACTERIA,URINE NEGATIVE /HPF; SQUAMOUS EPITHELIAL CELL,UR 0-2 /HPF; WBC,URINE 0-2 /HPF
--- NOTE | 2019-04-11 13:11 | Diagnostic Imaging Report ---
INDICATION: Shortness of air. TECHNIQUE: Single view chest 12:43 PM. CORRELATION STUDY: 07/23/2017 FINDINGS: Heart size is enlarged. Increased tip. Vasculature also appears more prominent increased from prior study. Minimal atelectasis left lung base. No consolidating infiltrate. May be trace effusions. IMPRESSION: 1. There does appear to be development of at least mild severity of vascular congestion since previous study. Dictated by: Dictated on workstation # [id number]
[2019-04-11 13:22] VITALS: BP 125/77
== END 2019-04-11 13:22 | disposition home or self-care (01) ==
LOC: EDUNIT# 10:30 → ER 10:31
DX: B34.9 Viral infection, unspecified (principal); M79.18 Myalgia, other site; K21.9 Gastro-esophageal reflux disease without esophagitis; E03.9 Hypothyroidism, unspecified; Z85.850 Personal history of malignant neoplasm of thyroid; Z86.711 Personal history of pulmonary embolism; Z87.440 Personal history of urinary (tract) infections; Z88.0 Allergy status to penicillin; Z88.1 Allergy status to other antibiotic agents; Z90.710 Acquired absence of both cervix and uterus; Z86.718 Personal history of other venous thrombosis and embolism; Z82.49 Family history of ischemic heart disease and other diseases of the circulatory system
CPT/HCPCS: 36415; 71045; 80053; 81000; 85007; 85027; 87804

== ENCOUNTER 2019-04-16 21:41 | Emergency (ER) | payer MEDICARE, OTHER ==
[~2019-04-16] VITALS: Ht 157.4 cm; Wt 72.0 kg
[2019-04-16 22:28] VITALS: BP 111/75
[2019-04-17] MEDS ORDERED: ONDA4TAB11 PO (12:37)
== END 2019-04-16 23:03 | disposition left against medical advice (07) ==
LOC: EDUNIT# 21:41 → ER 21:42
DX: R51 Headache (principal); M54.5 Low back pain; R11.10 Vomiting, unspecified

== ENCOUNTER 2019-04-17 10:35 | Emergency (ER) | payer MEDICARE, OTHER ==
[~2019-04-17] VITALS: Ht 157 cm; Wt 71.0 kg
[2019-04-17 11:05] LABS: BILIRUBIN,URINE NEGATIVE (NEGATIVE); CLARITY,URINE CLEAR; COLOR,URINE YELLOW; GLUCOSE, URINE (UA) NEGATIVE (NEGATIVE); KETONES,URINE NEGATIVE (NEGATIVE); LEUKOCYTE ESTERASE ,URINE NEGATIVE (NEGATIVE); NITRITE,URINE NEGATIVE (NEGATIVE); PH,URINE 6.5 (5-9); PROTEIN,URINE NEGATIVE (NEGATIVE)
[2019-04-17 11:21] LABS: BACTERIA,URINE NEGATIVE /HPF; WBC,URINE RARE /HPF
[2019-04-17] MEDS ORDERED: NS IV 1000 ML 1,000 ML IV SCH (11:21)
--- NOTE | 2019-04-17 11:27 | ED General ---
General Chief Complaint: Neurological Problems Stated Complaint: DEHYDRATED Nursing Triage Note: ARRIVED VIA AMB TO ROOM 10. COMPLAINS OF SEVERE WEAKNESS X8 DAYS. STATES SHE WAS HERE YESTERDAY BUT LEFT BECAUSE WE WERE BUSY. Nursing Sepsis Screen: No Definite Risk History of Present Illness Date Seen by Provider: Apr 17, 2019 Time Seen by Provider: 11:05 Initial Comments 68-year-old female presents for generalized weakness. She was seen at an urgent care approximately one week ago and started on Bactrim for a viral illness. She did notice a rash yesterday after taking it and did not take it this morning. She presented here last evening but left because of wait. She has a history of thyroid cancer and had a thyroidectomy in June 2017. In April 2019 she is scheduled to have radioactive treatments to her thyroid by Dr. Bryson haney. She denies nausea or abdominal pain at this time however she states that she has not been eating much because food makes her feel nauseous. She did have soup last evening and has had sips of water this morning. She denies any vomiting or diarrhea. She denies a cough but does report occasional fevers at night. She is afebrile at this time, has not taken ibuprofen or Tylenol today. Timing/Duration: 6-7 Days Severity: Mild Associated Systoms: No Denies Symptoms, No Chest Pain, No Cough, No Diaphoresis; Fever/Chills; No Headaches; Loss of Appetite; No Malaise; Nausea /Vomiting; No Rash, No Seizure, No Shortness of Air, No Syncope; Weakness; No Other Allergies and Home Medications Allergies Coded Allergies: erythromycin base (Verified Allergy, Severe, HIVES, 07/10/17) Penicillins (Verified Allergy, Mild, 07/10/17) Home Medications Amlodipine Besylate 5 Mg Tablet, 2.5 MG PO DAILY, (Reported) TAKES 1/2 (5MG) TABLET Ca Carbonate/Vitamin D3/Vit K 1 Each Tab.chew, 1 TAB PO DAILY, (Reported) Calcium Polycarbophil 625 Mg Tablet, 2 TAB PO DAILY, (Reported) Levothyroxine Sodium 150 Mcg Tablet, 150 MCG PO DAILY, (Reported) MON,SUN,WED,,SUN,SAT Levothyroxine Sodium 150 Mcg Tablet, 225 MCG PO DAILY, (Reported) 1.5 TABS ON SUNDAYS Losartan Potassium 50 Mg Tablet, 50 MG PO DAILY, (Reported) Multivitamin 1 Each Tablet, 1 TAB PO DAILY, (Reported) Omeprazole 40 Mg Capsule.dr, 20 MG PO BID, (Reported) Ondansetron 4 Mg Tab.rapdis, 4 MG PO Q6H PRN for NAUSEA/VOMITING Prescribed by: ISABELA ANG on 04/17/19 1237 Patient Home Medication List Home Medication List Reviewed: Yes Review of Systems Review of Systems Constitutional: see HPI, fever, malaise, weakness EENTM: see HPI, no symptoms reported Respiratory: no symptoms reported, see HPI, cough (very rarely, nonproductive) Gastrointestinal: no symptoms reported, see HPI, nausea (only when eating) Musculoskeletal: no symptoms reported, see HPI All Other Systems Reviewed Negative Unless Noted: Yes Past Mkofaxg-Tnlsgn-Nkfpvw Hx Past Med/Social Hx: Reviewed Nursing Past Med/Soc Hx Patient Social History Alcohol Use: Denies Use Recreational Drug Use: No Smoking Status: Never a Smoker Recent Foreign Travel: No Contact w/Someone Who Travel: No Recent Infectious Disease Expo: No Recent Hopitalizations: No Immunizations Up To Date Date of Pneumonia Vaccine: May 08, 2016 Date of Influenza Vaccine: Feb 04, 2018 Seasonal Allergies Seasonal Allergies: No Past Medical History Surgeries: Yes (cystocele repair, HIATAL HERNIA REPAIR) Gallbladder, Hysterectomy, Oophorectomy, Thyroidectomy Respiratory: Yes (CHRONIC COUGH) Cardiac: Yes (DVT LEFT LEG 07/18/17) Deep Vein Thrombosis, Hypertension Neurological: No 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, 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 Transmitted Disease: No HIV/AIDS: No Genitourinary: Yes UTI-Chronic Gastrointestinal: Yes Gastroesophageal Reflux, Diverticulosis, Hiatal Hernia, Gall Bladder Disease Musculoskeletal: No Endocrine: Yes (THYROID MASS---> THYROID OUT/ THYROID CANCER->THYROIDECTOMY) Hypothyroidsim HEENT: No Loss of Vision: Bilateral Hearing Impairment: Denies Cancer: Yes Thyroid Did You Recieve Any Treatments: Yes What Type of Treatment Did You: Surgical Intervention Psychosocial: No Integumentary: No Blood Disorders: No Adverse Reaction/Blood Tranf: No (N/A) Family Medical History Cardiovascular disease 19 FATHER Diabetes mellitus 19 FATHER 19 MOTHER Heart Disease, Cancer, DVT/PE, Diabetes Physical Exam Vital Signs Vital Signs - First Documented 04/17/19 10:40 Temp 37.1 Pulse 94 Resp 16 B/P (MAP) 127/81 (96) Pulse Ox 95 O2 Delivery Room Air Capillary Refill : Less Than 3 Seconds Height, Weight, BMI Height: 5'2.00" Weight: 155lbs. 0oz. 70.543830oj; 28.00 BMI Method:Stated General Appearance: No Apparent Distress, WD/WN Eyes: Bilateral Eye Normal Inspection, Bilateral Eye PERRL, Bilateral Eye EOMI HEENT: PERRL/EOMI, TMs Normal, Normal ENT Inspection, Pharynx Normal, Other (and oral mucosa pink but dry) Neck: Full Range of Motion, Normal Inspection, Non Tender, Supple Respiratory: Chest Non Tender, Lungs Clear, Normal Breath Sounds Cardiovascular: Regular Rate, Rhythm, No Edema, No Murmur, Normal Peripheral P ulses Gastrointestinal: Normal Bowel Sounds, Non Tender, Soft Extremity: Normal Capillary Refill, Normal Inspection, Normal Range of Motion, No Calf Tenderness, No Pedal Edema Neurologic/Psychiatric: Alert, Oriented x3, No Motor/Sensory Deficits, Normal Mood/Affect Skin: Normal Color, Warm/Dry; No Rash (patient reports a rash to her abdomen earlier however no rashes or pruritus present at this time) Progress/Results/Core Measures Suspected Sepsis Recent Fever Within 48 Hours: No Infection Criteria Present: None New/Unexplained Altered Menta: No Sepsis Screen: No Definite Risk SIRS Temperature: Pulse: 94 Respiratory Rate: 16 Laboratory Tests 04/17/19 11:37: White Blood Count 4.7 Blood Pressure 127 /81 Mean: 96 Laboratory Tests 04/17/19 11:37: Creatinine 0.76, Platelet Count 216, Total Bilirubin 0.4 Results/Orders Lab Results Laboratory Tests Test 04/17/19 10:55 04/17/19 11:37 Range/Units Urine Color YELLOW Urine Clarity CLEAR Urine pH 6.5 5-9 Urine Specific [place] 1.010 L 1.016-1.022 Urine Protein NEGATIVE NEGATIVE Urine Glucose (UA) NEGATIVE NEGATIVE Urine Ketones NEGATIVE NEGATIVE Urine Nitrite NEGATIVE NEGATIVE Urine Bilirubin NEGATIVE NEGATIVE Urine Urobilinogen 0.2 < = 1.0 MG/DL Urine Leukocyte Esterase NEGATIVE NEGATIVE Urine RBC (Auto) NEGATIVE NEGATIVE Urine RBC NONE /HPF Urine WBC RARE /HPF Urine Squamous Epithelial Cells 2-5 /HPF Urine Renal Epithelial Cells 2-5 /HPF Urine Crystals NONE /LPF Urine Bacteria NEGATIVE /HPF Urine Casts NONE /LPF Urine Mucus NEGATIVE /LPF Urine Culture Indicated NO White Blood Count 4.7 4.3-11.0 10^3/uL Red Blood Count 4.59 4.35-5.85 10^6/uL Hemoglobin 13.3 11.5-16.0 G/DL Hematocrit 39 35-52 % Mean Corpuscular Volume 86 80-99 FL Mean Corpuscular Hemoglobin 29 25-34 PG Mean Corpuscular Hemoglobin Concent 34 32-36 G/DL Red Cell Distribution Width 14.6 H 10.0-14.5 % Platelet Count 216 130-400 10^3/uL Mean Platelet Volume 10.5 H 7.4-10.4 FL Neutrophils (%) (Auto) 64 42-75 % Lymphocytes (%) (Auto) 15 12-44 % Monocytes (%) (Auto) 14 H 0-12 % Eosinophils (%) (Auto) 7 0-10 % Basophils (%) (Auto) 0 0-10 % Neutrophils # (Auto) 3.0 1.8-7.8 X 10^3 Lymphocytes # (Auto) 0.7 L 1.0-4.0 X 10^3 Monocytes # (Auto) 0.7 0.0-1.0 X 10^3 Eosinophils # (Auto) 0.3 0.0-0.3 10^3/uL Basophils # (Auto) 0.0 0.0-0.1 10^3/uL Sodium Level 136 135-145 MMOL/L Potassium Level 4.3 3.6-5.0 MMOL/L Chloride Level 106 98-107 MMOL/L Carbon Dioxide Level 18 L 21-32 MMOL/L Anion Gap 12 5-14 MMOL/L Blood Urea Nitrogen 8 7-18 MG/DL Creatinine 0.76 0.60-1.30 MG/DL Estimat Glomerular Filtration Rate > 60 BUN/Creatinine Ratio 11 Glucose Level 102 70-105 MG/DL Calcium Level 8.4 L 8.5-10.1 MG/DL Corrected Calcium 8.7 8.5-10.1 MG/DL Magnesium Level 1.9 1.6-2.4 MG/DL Total Bilirubin 0.4 0.1-1.0 MG/DL Aspartate Amino Transf (AST/SGOT) 64 H 5-34 U/L Alanine Aminotransferase (ALT/SGPT) 99 H 0-55 U/L Alkaline Phosphatase 77 40-136 U/L Total Protein 6.3 L 6.4-8.2 GM/DL Albumin 3.6 3.2-4.5 GM/DL TSH Clinch Testing 0.59 0.35-4.94 UIU/ML My Orders Orders - ISABELA ANG Cbc With Automated Diff (04/17/19 11:21) Comprehensive Metabolic Panel (04/17/19 11:21) Thyroid Analyzer (04/17/19 11:21) Ed Iv/Invasive Line Start (04/17/19 11:21) Ns Iv 1000 Ml (Sodium Chloride 0.9%) (04/17/19 11:21) Magnesium (04/17/19 11:37) Vital Signs/I&O 04/17/19 04/17/19 10:40 12:49 Temp 37.1 37.1 Pulse 94 86 Resp 16 15 B/P (MAP) 127/81 (96) 122/78 (96) Pulse Ox 95 96 O2 Delivery Room Air Capillary Refill : Less Than 3 Seconds Blood Pressure Mean: 96 Progress Note : Time: 11:05 Progress Note Patient seen and evaluated, will obtain labs and give normal saline 1 L per IV. 1200 labs all essentially normal, reviewed with patient. She reports no nausea or vomiting. Continued fatigue. Discharge instructions and return precautions reviewed with her. Departure Impression Primary Impression: Viral syndrome Disposition: 01 HOME, SELF-CARE Condition: Improved Departure-Patient Inst. Decision time for Depature: 12:35 Referrals: MITUL DURAN MD (PCP/Family) Primary Care Physician Patient Instructions: Viral Syndrome (DC) Add. Discharge Instructions: Increase rest, push fluids. Take a multivitamin daily. Follow-up with your primary care provider if symptoms are not improving or worsen. Use the Zofran for nausea and vomiting. Return to the emergency department for new, urgent health care needs. All discharge instructions reviewed with patient and/or family. Voiced understanding. Scripts Ondansetron (Ondansetron Odt) 4 Mg Tab.rapdis 4 MG PO Q6H PRN for NAUSEA/VOMITING, #8 TAB 0 Refills Prov: ISABELA ANG 04/17/19 Copy Copies To 1: MITUL DURAN MD, AMY ARNP Apr 17, 2019 11:27
[2019-04-17 11:55] LABS: BASOPHILS % (AUTO) 0 % (0-10); EOSINOPHILS # (AUTO) 0.3 10^3/uL (0.0-0.3); EOSINOPHILS % (AUTO) 7 % (0-10); HEMATOCRIT 39 % (35-52); HEMOGLOBIN 13.3 G/DL (11.5-16.0); LYMPHOCYTES # (AUTO) 0.7 X 10^3 (1.0-4.0); LYMPHOCYTES % (AUTO) 15 % (12-44); MEAN CORPUSCULAR HEMOGLOBIN 29 PG (25-34); MEAN CORPUSCULAR HGB CONC 34 G/DL (32-36); MEAN CORPUSCULAR VOLUME 86 FL (80-99); MEAN PLATELET VOLUME 10.5 FL (7.4-10.4); MONOCYTES # (AUTO) 0.7 X 10^3 (0.0-1.0); MONOCYTES % (AUTO) 14 % (0-12); NEUTROPHILS % (AUTO) 64 % (42-75); PLATELET COUNT 216 10^3/uL (130-400); RED CELL DISTRIBUTION WIDTH 14.6 % (10.0-14.5); WHITE BLOOD COUNT 4.7 10^3/uL (4.3-11.0)
[2019-04-17 12:16] LABS: ALANINE AMINOTRANSFERASE 99 U/L (0-55); ALBUMIN 3.6 GM/DL (3.2-4.5); ALKALINE PHOSPHATASE 77 U/L (40-136); BILIRUBIN,TOTAL 0.4 MG/DL (0.1-1.0); BUN/CREATININE RATIO 11; CALCIUM 8.4 MG/DL (8.5-10.1); CARBON DIOXIDE 18 MMOL/L (21-32); CHLORIDE 106 MMOL/L (98-107); CREATININE SERUM 0.76 MG/DL (0.60-1.30); GFR ESTIMATED > 60; GLUCOSE 102 MG/DL (70-105); MAGNESIUM 1.9 MG/DL (1.6-2.4); POTASSIUM 4.3 MMOL/L (3.6-5.0); SODIUM 136 MMOL/L (135-145); TOTAL PROTEIN 6.3 GM/DL (6.4-8.2)
[2019-04-17 12:33] LABS: TSH (THYROID ANALYZER) 0.59 UIU/ML (0.35-4.94)
[2019-04-17] MEDS ORDERED: ONDA4TAB11 PO (12:37)
[2019-04-17 12:49] VITALS: BP 122/78
== END 2019-04-17 12:49 | disposition home or self-care (01) ==
LOC: EDUNIT# 10:35 → ER 10:36
DX: B34.9 Viral infection, unspecified (principal); I10 Essential (primary) hypertension; K21.9 Gastro-esophageal reflux disease without esophagitis; E03.9 Hypothyroidism, unspecified; Z85.850 Personal history of malignant neoplasm of thyroid; Z86.718 Personal history of other venous thrombosis and embolism; Z87.440 Personal history of urinary (tract) infections; Z88.0 Allergy status to penicillin; Z88.1 Allergy status to other antibiotic agents; Z90.710 Acquired absence of both cervix and uterus; Z82.49 Family history of ischemic heart disease and other diseases of the circulatory system
CPT/HCPCS: 36415; 80053; 81000; 83735; 84443; 85025; 96360

== ENCOUNTER → 2019-06-04 | Outpatient (CLI) | payer MEDICARE, OTHER ==
[~2019-06-04] MED LIST changes: +OMEP40CA27 PO; -OMEP40CA36 PO; +ONDA4TAB11 PO
--- NOTE | 2019-06-06 11:10 | Diagnostic Imaging Report ---
INDICATION: Papillary thyroid cancer. TECHNIQUE: The patient was administered 2.1 mCi of iodine-131 and whole body imaging was performed. COMPARISON: 02/01/2018. FINDINGS: Physiologic activity is identified. No abnormal accumulation of activity in the region of the thyroid bed is identified. The previously noted activity is no longer detected. There are no findings to suggest residual thyroid tissue or residual thyroid carcinoma. There is no evidence of distant metastases. IMPRESSION: Normal whole body iodine-131 scan. Dictated by: Dictated on workstation # [id number]
== END ==
LOC: CARD 09:46
PROVIDERS: ATTEND Radiology Radiation Oncology
DX: C73 Malignant neoplasm of thyroid gland (principal)
CPT/HCPCS: 78018

== ENCOUNTER → 2019-06-04 | Outpatient (CLI) | payer MEDICARE, OTHER | LOC: LAB 10:28 | PROVIDERS: ATTEND Radiology Radiation Oncology | DX: C73 Malignant neoplasm of thyroid gland (principal) | CPT/HCPCS: 36415; 84432; 86800 ==

== ENCOUNTER → 2019-07-08 | Outpatient (CLI) | payer MEDICARE, OTHER ==
[~2019-07-08] MED LIST changes: -HYDR-3816 PO
--- NOTE | 2019-07-08 13:12 | Diagnostic Imaging Report ---
INDICATION: Routine screening. Comparison is made with prior mammogram from 05/08/2018 and 11/14/2016. 2-D and 3-D bilateral screening mammography was performed with CAD. Both breasts are heterogeneously dense, limiting the sensitivity of mammography. The parenchymal pattern is stable. There are benign calcifications. No mass or malignant-appearing microcalcifications are seen. Axillae are unremarkable. IMPRESSION: BI-RADS Category 2 No mammographic features suspicious for malignancy are identified. ACR BI-RADS Category 2: Benign findings. Result letter will be mailed to the patient. Note: At least 10% of breast cancer is not imaged by mammography. Dictated by: Dictated on workstation # [id number]
== END ==
LOC: RAD 11:12
PROVIDERS: ATTEND Family Medicine
DX: Z12.31 Encounter for screening mammogram for malignant neoplasm of breast (principal)
CPT/HCPCS: 77067

== ENCOUNTER 2019-08-28 13:00 | Outpatient (RCR) | payer MEDICARE, OTHER ==
[2019-08-28 13:18] LABS: BASOPHILS % (AUTO) 1 % (0-10); EOSINOPHILS # (AUTO) 0.4 10^3/uL (0.0-0.3); EOSINOPHILS % (AUTO) 8 % (0-10); HEMATOCRIT 41 % (35-52); HEMOGLOBIN 13.6 G/DL (11.5-16.0); LYMPHOCYTES # (AUTO) 1.2 X 10^3 (1.0-4.0); LYMPHOCYTES % (AUTO) 24 % (12-44); MEAN CORPUSCULAR HEMOGLOBIN 30 PG (25-34); MEAN CORPUSCULAR HGB CONC 33 G/DL (32-36); MEAN CORPUSCULAR VOLUME 90 FL (80-99); MEAN PLATELET VOLUME 10.1 FL (7.4-10.4); MONOCYTES # (AUTO) 0.5 X 10^3 (0.0-1.0); MONOCYTES % (AUTO) 10 % (0-12); NEUTROPHILS # (AUTO) 2.9 X 10^3 (1.8-7.8); NEUTROPHILS % (AUTO) 57 % (42-75); PLATELET COUNT 319 10^3/uL (130-400); RED CELL DISTRIBUTION WIDTH 13.7 % (10.0-14.5)
[2019-08-28 13:36] LABS: ALANINE AMINOTRANSFERASE 15 U/L (0-55); ALKALINE PHOSPHATASE 65 U/L (40-136); BILIRUBIN,TOTAL 0.4 MG/DL (0.1-1.0); BUN/CREATININE RATIO 19; CALCIUM 8.8 MG/DL (8.5-10.1); CARBON DIOXIDE 19 MMOL/L (21-32); CHLORIDE 111 MMOL/L (98-107); CREATININE SERUM 0.74 MG/DL (0.60-1.30); GFR ESTIMATED > 60; GLUCOSE 100 MG/DL (70-105); POTASSIUM 3.8 MMOL/L (3.6-5.0); SODIUM 142 MMOL/L (135-145); TOTAL PROTEIN 6.8 GM/DL (6.4-8.2)
== END 2019-09-02 | disposition home or self-care (01) ==
LOC: ONC 13:00
PROVIDERS: ATTEND Internal Medicine Hematology & Oncology
DX: C73 Malignant neoplasm of thyroid gland (principal)
CPT/HCPCS: 80053; 84432; 84443; 85025; 86376; 86800; 99213

== ENCOUNTER → 2019-12-03 | Outpatient (RCR) | payer MEDICARE, OTHER ==
[2019-12-03 13:45] LABS: BASOPHILS % (AUTO) 1 % (0-10); EOSINOPHILS # (AUTO) 0.4 10^3/uL (0.0-0.3); EOSINOPHILS % (AUTO) 7 % (0-10); HEMATOCRIT 40 % (35-52); HEMOGLOBIN 13.1 G/DL (11.5-16.0); LYMPHOCYTES # (AUTO) 1.4 X 10^3 (1.0-4.0); LYMPHOCYTES % (AUTO) 29 % (12-44); MEAN CORPUSCULAR HEMOGLOBIN 29 PG (25-34); MEAN CORPUSCULAR HGB CONC 33 G/DL (32-36); MEAN CORPUSCULAR VOLUME 89 FL (80-99); MEAN PLATELET VOLUME 10.1 FL (7.4-10.4); MONOCYTES # (AUTO) 0.6 X 10^3 (0.0-1.0); MONOCYTES % (AUTO) 12 % (0-12); NEUTROPHILS # (AUTO) 2.5 X 10^3 (1.8-7.8); NEUTROPHILS % (AUTO) 51 % (42-75); PLATELET COUNT 326 10^3/uL (130-400); RED CELL DISTRIBUTION WIDTH 14.2 % (10.0-14.5); WHITE BLOOD COUNT 4.9 10^3/uL (4.3-11.0)
[2019-12-03 14:02] LABS: ALANINE AMINOTRANSFERASE 16 U/L (0-55); ALKALINE PHOSPHATASE 73 U/L (40-136); BILIRUBIN,TOTAL 0.3 MG/DL (0.1-1.0); BUN/CREATININE RATIO 18; CALCIUM 8.8 MG/DL (8.5-10.1); CARBON DIOXIDE 21 MMOL/L (21-32); CHLORIDE 109 MMOL/L (98-107); CREATININE SERUM 0.72 MG/DL (0.60-1.30); GFR ESTIMATED > 60; GLUCOSE 92 MG/DL (70-105); POTASSIUM 3.9 MMOL/L (3.6-5.0); SODIUM 141 MMOL/L (135-145)
== END | disposition home or self-care (01) ==
LOC: ONC 09-04 13:17
PROVIDERS: ATTEND Internal Medicine Hematology & Oncology
DX: C73 Malignant neoplasm of thyroid gland (principal); E03.8 Other specified hypothyroidism; I82.402 Acute embolism and thrombosis of unspecified deep veins of left lower extremity; I26.99 Other pulmonary embolism without acute cor pulmonale; Z98.890 Other specified postprocedural states; Z79.899 Other long term (current) drug therapy; Z90.89 Acquired absence of other organs
CPT/HCPCS: 80053; 84432; 84443; 85025; 86800; 99213

== ENCOUNTER → 2019-12-15 | Outpatient (CLI) | payer MEDICARE, OTHER | LOC: EDSTATUS 14:55 → ONC 15:26 | PROVIDERS: ATTEND Internal Medicine Hematology & Oncology | DX: I82.402 Acute embolism and thrombosis of unspecified deep veins of left lower extremity (principal); I26.99 Other pulmonary embolism without acute cor pulmonale; E89.0 Postprocedural hypothyroidism; Z79.01 Long term (current) use of anticoagulants; Z92.3 Personal history of irradiation; Z85.850 Personal history of malignant neoplasm of thyroid | CPT/HCPCS: 99213 ==

== ENCOUNTER → 2020-01-26 | Outpatient (CLI) | payer MEDICARE, OTHER | LOC: ONC 13:28 | PROVIDERS: ATTEND Internal Medicine Hematology & Oncology | DX: E03.8 Other specified hypothyroidism (principal); Z92.3 Personal history of irradiation; Z85.850 Personal history of malignant neoplasm of thyroid; Z90.89 Acquired absence of other organs; Z86.718 Personal history of other venous thrombosis and embolism; Z86.711 Personal history of pulmonary embolism; Z79.01 Long term (current) use of anticoagulants | CPT/HCPCS: 84443 ==

== ENCOUNTER 2020-03-22 13:17 | Outpatient (RCR) | payer MEDICARE, OTHER ==
[2020-03-15 12:05] LABS: BASOPHILS # (AUTO) 0.1 10^3/uL (0.0-0.1); BASOPHILS % (AUTO) 1 % (0-10); EOSINOPHILS # (AUTO) 0.5 10^3/uL (0.0-0.3); EOSINOPHILS % (AUTO) 10 % (0-10); HEMATOCRIT 42 % (35-52); HEMOGLOBIN 13.8 g/dL (11.5-16.0); LYMPHOCYTES # (AUTO) 1.4 10^3/uL (1.0-4.0); LYMPHOCYTES % (AUTO) 30 % (12-44); MEAN CORPUSCULAR HEMOGLOBIN 30 pg (25-34); MEAN CORPUSCULAR HGB CONC 33 g/dL (32-36); MEAN CORPUSCULAR VOLUME 90 fL (80-99); MEAN PLATELET VOLUME 9.9 fL (9.0-12.2); MONOCYTES # (AUTO) 0.5 10^3/uL (0.0-1.0); MONOCYTES % (AUTO) 11 % (0-12); NEUTROPHILS # (AUTO) 2.3 10^3/uL (1.8-7.8); NEUTROPHILS % (AUTO) 48 % (42-75); PLATELET COUNT 348 10^3/uL (130-400); WHITE BLOOD COUNT 4.8 10^3/uL (4.3-11.0)
[2020-03-15 12:34] LABS: ALANINE AMINOTRANSFERASE 18 U/L (0-55); ALBUMIN 4.1 GM/DL (3.2-4.5); ALKALINE PHOSPHATASE 66 U/L (40-136); BILIRUBIN,TOTAL 0.5 MG/DL (0.1-1.0); BUN/CREATININE RATIO 17; CALCIUM 9.1 MG/DL (8.5-10.1); CARBON DIOXIDE 22 MMOL/L (21-32); CHLORIDE 108 MMOL/L (98-107); CREATININE SERUM 0.76 MG/DL (0.60-1.30); GFR ESTIMATED > 60; GLUCOSE 97 MG/DL (70-105); POTASSIUM 4.1 MMOL/L (3.6-5.0); SODIUM 141 MMOL/L (135-145)
[~2020-03-22 13:17] MED LIST changes: +AMLO-250 PO; -AMLO5TAB9 PO
== END 2020-06-13 | disposition home or self-care (01) ==
LOC: ONC 13:17
PROVIDERS: ATTEND Internal Medicine Hematology & Oncology
DX: C73 Malignant neoplasm of thyroid gland (principal); Z90.09 Acquired absence of other part of head and neck; Z92.3 Personal history of irradiation
CPT/HCPCS: 80053; 84432; 84443; 85025; 86800; 99213

== ENCOUNTER 2020-09-14 11:11 | Outpatient (RCR) | payer MEDICARE, OTHER ==
[2020-09-14 11:24] LABS: BASOPHILS # (AUTO) 0.1 10^3/uL (0.0-0.1); BASOPHILS % (AUTO) 1 % (0-10); EOSINOPHILS # (AUTO) 0.4 10^3/uL (0.0-0.3); EOSINOPHILS % (AUTO) 7 % (0-10); HEMATOCRIT 42 % (35-52); HEMOGLOBIN 13.6 g/dL (11.5-16.0); LYMPHOCYTES # (AUTO) 1.3 10^3/uL (1.0-4.0); LYMPHOCYTES % (AUTO) 24 % (12-44); MEAN CORPUSCULAR HEMOGLOBIN 30 pg (25-34); MEAN CORPUSCULAR HGB CONC 32 g/dL (32-36); MEAN CORPUSCULAR VOLUME 92 fL (80-99); MONOCYTES # (AUTO) 0.5 10^3/uL (0.0-1.0); MONOCYTES % (AUTO) 10 % (0-12); NEUTROPHILS # (AUTO) 3.1 10^3/uL (1.8-7.8); NEUTROPHILS % (AUTO) 58 % (42-75); PLATELET COUNT 318 10^3/uL (130-400); WHITE BLOOD COUNT 5.4 10^3/uL (4.3-11.0)
[2020-09-14 11:43] LABS: ALANINE AMINOTRANSFERASE 21 U/L (0-55); ALBUMIN 3.9 GM/DL (3.2-4.5); ALKALINE PHOSPHATASE 67 U/L (40-136); BILIRUBIN,TOTAL 0.6 MG/DL (0.1-1.0); BUN/CREATININE RATIO 16; CALCIUM 8.6 MG/DL (8.5-10.1); CARBON DIOXIDE 25 MMOL/L (21-32); CHLORIDE 107 MMOL/L (98-107); CREATININE SERUM 0.81 MG/DL (0.60-1.30); GFR ESTIMATED > 60; GLUCOSE 101 MG/DL (70-105); SODIUM 138 MMOL/L (135-145); TOTAL PROTEIN 6.6 GM/DL (6.4-8.2)
== END 2020-09-19 | disposition home or self-care (01) ==
LOC: ONC 11:11
PROVIDERS: ATTEND Internal Medicine Hematology & Oncology
DX: C73 Malignant neoplasm of thyroid gland (principal); Z90.09 Acquired absence of other part of head and neck; Z92.3 Personal history of irradiation
CPT/HCPCS: 80053; 84432; 84443; 85025; 86800

== ENCOUNTER 2020-09-18 15:01 | Emergency (ER) | payer MEDICARE, OTHER ==
[~2020-09-18] VITALS: Ht 157 cm; Wt 68.0 kg
--- NOTE | 2020-09-18 15:55 | ED Lower Extremity ---
General Chief Complaint: Lower Extremity Stated Complaint: RT KNEE PAIN Nursing Triage Note: Patient ambulatory to ER with spouse with c/o right posterior knee pain that began last night. Patient states she was pulling weeds in the garden last night but doesn't remember injuring it. She has a previous history of blood clots. The right knee is swollen. Nursing Sepsis Screen: No Definite Risk Source: patient Exam Limitations: no limitations History of Present Illness Date Seen by Provider: September 18, 2020 Time Seen by Provider: 15:50 Initial Comments This is a 69-year-old female who presents to the ER with complaints of pain behind her right knee that started last night. States that she does not recall any trauma to the area however she was in her garden pulling weeds yesterday. She does have a history of blood clots and is concerned she may have another blood clot. Pain is better this afternoon compared to last night. Has mild swelling to front and back of knee. No fever, chills, nausea/vomiting, numbness, or tingling. Allergies and Home Medications Allergies Coded Allergies: erythromycin base (Verified Allergy, Severe, HIVES, 07/10/17) Penicillins (Verified Allergy, Mild, 07/10/17) Home Medications Amlodipine Besylate 5 Mg Tablet, 2.5 MG PO DAILY, (Reported) TAKES 1/2 (5MG) TABLET Ca Carbonate/Vitamin D3/Vit K 1 Each Tab.chew, 1 TAB PO DAILY, (Reported) Calcium Polycarbophil 625 Mg Tablet, 2 TAB PO DAILY, (Reported) Levothyroxine Sodium 150 Mcg Tablet, 150 MCG PO DAILY, (Reported) SUN,SUN,SUN,,SUN,SUN Levothyroxine Sodium 150 Mcg Tablet, 225 MCG PO DAILY, (Reported) 1.5 TABS ON SUNDAYS Losartan Potassium 50 Mg Tablet, 50 MG PO DAILY, (Reported) Multivitamin 1 Each Tablet, 1 TAB PO DAILY, (Reported) Omeprazole 40 Mg Capsule.dr, 20 MG PO BID, (Reported) Ondansetron 4 Mg Tab.rapdis, 4 MG PO Q6H PRN for NAUSEA/VOMITING Prescribed by: ISABELA ANG on 04/17/19 4211 Patient Home Medication List Home Medication List Reviewed: Yes Review of Systems Constitutional: no symptoms reported EENTM: no symptoms reported Respiratory: no symptoms reported Cardiovascular: no symptoms reported Gastrointestinal: no symptoms reported Genitourinary: no symptoms reported Musculoskeletal: see HPI Skin: no symptoms reported Psychiatric/Neurological: No Symptoms Reported Past Qbfnvbd-Buqjzj-Npfrlq Hx Patient Social History Recent Infectious Disease Expo: No Recent Hopitalizations: No Immunizations Up To Date Date of Pneumonia Vaccine: May 08, 2016 Date of Influenza Vaccine: Feb 04, 2018 Seasonal Allergies Seasonal Allergies: No Past Medical History Surgeries: Yes (cystocele repair, HIATAL HERNIA REPAIR) Gallbladder, Hysterectomy, Oophorectomy, Thyroidectomy Respiratory: Yes (CHRONIC COUGH) Cardiac: Yes (DVT LEFT LEG 07/18/17) Deep Vein Thrombosis, Hypertension Neurological: No Reproductive Disorders: No 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, 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 Sexually Transmitted Disease: No HIV/AIDS: No Genitourinary: Yes UTI-Chronic Gastrointestinal: Yes Gastroesophageal Reflux, Diverticulosis, Hiatal Hernia, Gall Bladder Disease Musculoskeletal: No Endocrine: Yes (THYROID MASS---> THYROID OUT/ THYROID CANCER->THYROIDECTOMY) Hypothyroidsim HEENT: No Loss of Vision: Bilateral Hearing Impairment: Denies Cancer: Yes Thyroid Did You Recieve Any Treatments: Yes What Type of Treatment Did You: Surgical Intervention Psychosocial: No Integumentary: No Blood Disorders: No Adverse Reaction/Blood Tranf: No (N/A) Family Medical History Cardiovascular disease 19 FATHER Diabetes mellitus 19 FATHER 19 MOTHER Heart Disease, Cancer, DVT/PE, Diabetes Physical Exam Vital Signs Vital Signs - First Documented 09/18/20 15:42 Temp 36.8 Pulse 90 Resp 16 B/P (MAP) 176/104 (128) Pulse Ox 96 O2 Delivery Room Air Capillary Refill : Less Than 3 Seconds Height, Weight, BMI Height: 5'2.00" Weight: 155lbs. 0oz. 70.081159ry; 27.00 BMI Method:Stated General Appearance: WD/WN, no apparent distress HEENT: PERRL/EOMI, normal ENT inspection Neck: full range of motion, normal inspection Cardiovascular: regular rate, rhythm, no murmur Respiratory: lungs clear, normal breath sounds Gastrointestinal: normal bowel sounds, non tender, soft Hips: bilateral hip non-tender, bilateral hip normal inspection, bilateral hip no evidence of injury Legs: bilateral leg non-tender, bilateral leg normal inspection, bilateral leg normal range of motion Knees: left knee non-tender, left knee normal inspection, left knee normal range of motion; right knee swelling (anterior and posterior knee) Ankles: bilateral ankle non-tender, bilateral ankle normal inspection, bilateral ankle normal range of motion Neurologic/Tendon: normal sensation, normal motor functions, normal tendon functions Neurologic/Psychiatric: no motor/sensory deficits, alert, normal mood/affect, oriented x 3 Skin: normal color, warm/dry Progress/Results/Core Measures Results/Orders Lab Results Laboratory Tests Test 09/18/20 16:16 Range/Units D-Dimer < 0.27 0.00-0.49 UG/ML My Orders Orders - NEO PATRICIA APRN Fibrin [employer] (09/18/20 15:53) Knee, Right, 3 Views (09/18/20 16:01) Vital Signs/I&O 09/18/20 09/18/20 15:42 16:51 Temp 36.8 Pulse 90 84 Resp 16 16 B/P (MAP) 176/104 (128) 136/93 Pulse Ox 96 94 O2 Delivery Room Air Room Air Blood Pressure Mean: 128 Progress Progress Note : Progress Note Patient examined and in no acute distress. Orders placed for D-dimer and images of right knee. X-ray negative for acute pathology. D-dimer within normal limits. Discussed conservative therapy for popliteal cyst and following up with her primary care provider next week. Reviewed discharge plan of care and she is agreeable with plan. Departure Impression Primary Impression: Popliteal cyst Disposition: HOME, SELF-CARE Condition: Stable Departure-Patient Inst. Decision time for Depature: 16:46 Referrals: KAMRAN LEAL MD (PCP/Family) Primary Care Physician Patient Instructions: Sheppard's (Popliteal) Cyst Add. Discharge Instructions: Plan: 1. Follow the R.I.C.E. principles. These letters stand for rest, ice, compression and elevation. Rest your leg. Ice your knee. Compress your knee with a wrap, sleeve or brace. And elevate your leg when possible, especially at night. 2. Try benb-sex-yxccqrg pain-relieving medications. Drugs such as ibuprofen (Advil, Motrin IB, others), naproxen sodium (Aleve, others), acetaminophen (Tylenol, others) and aspirin can help relieve pain. Follow the dosing instructions on the package. Don't take more than the recommend dosage. 3. Reduce your physical activity. Doing so will reduce irritation of your knee joint. 4. Return for any new, concerning, or worsening symptoms. All discharge instructions reviewed with patient and/or family. Voiced understanding. NEO PATRICIA RECREATIONAL FACILITIES MOTEL MANAGER September 18, 2020 15:55
--- NOTE | 2020-09-18 16:35 | Diagnostic Imaging Report ---
HISTORY: Right knee pain and swelling. TECHNIQUE: Three views of the right knee. COMPARISON: None. FINDINGS: No acute fracture or dislocation is seen in the right knee. Alignment appears normal. There is mild degenerative change in the right knee. No significant joint effusion is seen. There is calcific atherosclerosis. IMPRESSION: Mild degenerative changes in the right knee with no acute osseous abnormality seen. Dictated by: Dictated on workstation # [id number]
[2020-09-18 16:51] VITALS: BP 136/93
== END 2020-09-18 16:52 | disposition home or self-care (01) ==
LOC: EDUNIT# 15:01 → ER 15:03
DX: M71.21 Synovial cyst of popliteal space [Baker], right knee (principal); I10 Essential (primary) hypertension; K21.9 Gastro-esophageal reflux disease without esophagitis; E03.9 Hypothyroidism, unspecified; Z79.890 Hormone replacement therapy; Z79.899 Other long term (current) drug therapy
CPT/HCPCS: 36415; 73562; 85379

== ENCOUNTER → 2020-10-19 | Outpatient (CLI) | payer MEDICARE, OTHER ==
[~2020-10-19] MED LIST changes: -OMEP40CA27 PO; +OMEP40CA6 PO
--- NOTE | 2020-10-19 16:07 | Diagnostic Imaging Report ---
INDICATION: 70-year-old asymptomatic postmenopausal female. COMPARISON: None available. FINDINGS: AP Spine L2-L4: [BMD (g/cm2): 1.009] [T-Score: -1.6] [Z-Score: 0.0] [BMD Previous: NA] [BMD % Change: NA] LT Hip Neck: [BMD (g/cm2): 0.635] [T-Score: -2.9] [Z-Score: -1.2] LT Hip Total: [BMD (g/cm2):0.708] [T-Score:-2.4] [Z-Score: -0.9] [BMD Previous: NA] [BMD % Change: NA] RT Hip Neck: [BMD (g/cm2):0.672] [T-Score:-2.6] [Z-Score:-0.9] RT Hip Total: [BMD (g/cm2):0.712] [T-score:-2.3] [Z-Score:-0.9] [BMD Previous:NA] [BMD % Change:NA] *Indicates significant change from prior examination based on 95% confidence level. World Health Organization criteria for BMD interpretation classify patients as Normal (T-score at or above -1.0), Osteopenic (T-score between -1.0 and -2.5) or Osteoporotic (T-score at or below -2.5). LIMITATIONS AND MODIFICATION: None. FRACTURE RISK (FRAX SCORE): Not applicable as patient meets criteria for osteoporosis. IMPRESSION: 1. Osteoporosis. 2. Baseline examination. 3. See below National Osteoporosis Foundation guidelines on when to potentially initiate pharmacologic therapy. Based on the National Osteoporosis Foundation Guidelines, pharmacologic treatment should be initiated in any of the following, unless clinical conditions suggest otherwise: * Any patient with prior fragility fracture of the hip or vertebrae. A spine fracture indicates 5X risk for subsequent spine fracture and 2X risk for subsequent hip fracture. * Osteoporosis (T-score <-2.5). * Postmenopausal women and men age 50 and older with low bone mass/osteopenia (T-score between -1.0 and -2.5) by DXA and 10-year major osteoporotic fracture greater than 20% or a 10-year probability of hip fracture greater than 3%. These fracture risks are supplied above in the FRAX score, if applicable. * Clinician judgement and/or patient preferences may indicate treatment for people with 10-year fracture probabilities above or below these levels. Dictated by: Dictated on workstation # [id number]
== END ==
LOC: RAD 12:05
PROVIDERS: ATTEND Internal Medicine Hematology & Oncology
DX: M81.0 Age-related osteoporosis without current pathological fracture (principal); E03.8 Other specified hypothyroidism; C73 Malignant neoplasm of thyroid gland; Z78.0 Asymptomatic menopausal state
CPT/HCPCS: 77080

== ENCOUNTER 2020-12-02 09:49 | Outpatient (RCR) | payer MEDICARE, OTHER ==
[2020-11-04 10:22] LABS: ALANINE AMINOTRANSFERASE 21 U/L (0-55); ALBUMIN 3.8 GM/DL (3.2-4.5); ALKALINE PHOSPHATASE 67 U/L (40-136); BILIRUBIN,TOTAL 0.3 MG/DL (0.1-1.0); BUN/CREATININE RATIO 18; CARBON DIOXIDE 28 MMOL/L (21-32); CHLORIDE 109 MMOL/L (98-107); CREATININE SERUM 0.84 MG/DL (0.60-1.30); GFR ESTIMATED > 60; GLUCOSE 100 MG/DL (70-105); SODIUM 142 MMOL/L (135-145); TOTAL PROTEIN 6.6 GM/DL (6.4-8.2)
[~2020-12-02 09:49] MED LIST changes: +IBANDRONATE 3 MG/3 ML IV SCH
== END 2020-12-20 | disposition home or self-care (01) ==
LOC: ONC 09:49
PROVIDERS: ATTEND Internal Medicine Hematology & Oncology
DX: C73 Malignant neoplasm of thyroid gland (principal); M81.0 Age-related osteoporosis without current pathological fracture; E89.0 Postprocedural hypothyroidism; Z90.09 Acquired absence of other part of head and neck; Z92.3 Personal history of irradiation; Z79.890 Hormone replacement therapy; Z79.899 Other long term (current) drug therapy; Z79.01 Long term (current) use of anticoagulants
CPT/HCPCS: 80053; 82306; 96375; 99213

== ENCOUNTER 2021-03-08 14:19 | Outpatient (RCR) | payer MEDICARE, OTHER ==
[2021-02-22 14:16] LABS: BASOPHILS # (AUTO) 0.1 10^3/uL (0.0-0.1); BASOPHILS % (AUTO) 1 % (0-10); EOSINOPHILS # (AUTO) 0.4 10^3/uL (0.0-0.3); EOSINOPHILS % (AUTO) 8 % (0-10); HEMATOCRIT 40 % (35-52); HEMOGLOBIN 13.1 g/dL (11.5-16.0); LYMPHOCYTES # (AUTO) 1.5 X 10^3 (1.0-4.0); LYMPHOCYTES % (AUTO) 28 % (12-44); MEAN CORPUSCULAR HEMOGLOBIN 29 pg (25-34); MEAN CORPUSCULAR HGB CONC 32 g/dL (32-36); MEAN CORPUSCULAR VOLUME 89 fL (80-99); MONOCYTES # (AUTO) 0.6 X 10^3 (0.0-1.0); MONOCYTES % (AUTO) 10 % (0-12); NEUTROPHILS # (AUTO) 2.9 X 10^3 (1.8-7.8); NEUTROPHILS % (AUTO) 53 % (42-75); PLATELET COUNT 316 10^3/uL (130-400); WHITE BLOOD COUNT 5.4 10^3/uL (4.3-11.0)
[2021-02-22 15:18] LABS: ALBUMIN 3.7 GM/DL (3.2-4.5); BILIRUBIN,TOTAL 0.4 MG/DL (0.1-1.0); CALCIUM 8.9 MG/DL (8.5-10.1); CREATININE SERUM 0.78 MG/DL (0.60-1.30); POTASSIUM 3.9 MMOL/L (3.6-5.0); TOTAL PROTEIN 6.7 GM/DL (6.4-8.2)
[~2021-03-08 14:19] MED LIST changes: -IBANDRONATE 3 MG/3 ML IV SCH
[2021-03-08] MEDS ORDERED: IBANDRONATE 3 MG/3 ML IV SCH (15:00)
== END 2021-04-29 | disposition home or self-care (01) ==
LOC: ONC 14:19
PROVIDERS: ATTEND Internal Medicine Hematology & Oncology
DX: C73 Malignant neoplasm of thyroid gland (principal); I82.402 Acute embolism and thrombosis of unspecified deep veins of left lower extremity; J90 Pleural effusion, not elsewhere classified; Z92.3 Personal history of irradiation; Z90.09 Acquired absence of other part of head and neck; Z79.899 Other long term (current) drug therapy
CPT/HCPCS: 80053; 82306; 84432; 84443; 85025; 86800; 96374

== ENCOUNTER → 2021-04-12 | Outpatient (CLI) | payer MEDICARE, OTHER ==
--- NOTE | 2021-04-12 17:44 | Diagnostic Imaging Report ---
INDICATION: Routine screening. Comparison is made with prior mammogram from 07/08/2019 and 05/08/2018. 2-D and 3-D bilateral screening mammography was performed with a Computer Aided Detection (CAD) system. 3-D tomosynthesis was also performed and reviewed. FINDINGS: Both breasts are heterogeneously dense, limiting the sensitivity of mammography. The parenchymal pattern is stable. No mass or malignant-appearing microcalcifications are seen. Axillae are unremarkable. IMPRESSION: No mammographic features suspicious for malignancy are identified. ACR BI-RADS Category 1: Negative. Result letter will be mailed to the patient. Note: At least 10% of breast cancer is not imaged by mammography. Dictated by: Dictated on workstation # [id number]
== END ==
LOC: RAD 10:30
PROVIDERS: ATTEND Family Medicine
DX: Z12.31 Encounter for screening mammogram for malignant neoplasm of breast (principal)
CPT/HCPCS: 77063; 77067

== ENCOUNTER → 2021-12-15 | Outpatient (CLI) | payer MEDICARE, OTHER ==
[2021-12-15 14:32] LABS: ALBUMIN 4.1 GM/DL (3.2-4.5); BILIRUBIN,TOTAL 0.6 MG/DL (0.1-1.0); CALCIUM 9.2 MG/DL (8.5-10.1); CREATININE SERUM 0.79 MG/DL (0.60-1.30); TOTAL PROTEIN 7.2 GM/DL (6.4-8.2)
== END ==
LOC: LAB 13:36
PROVIDERS: ATTEND Internal Medicine Cardiovascular Disease
DX: E78.2 Mixed hyperlipidemia (principal); I25.10 Atherosclerotic heart disease of native coronary artery without angina pectoris; I65.23 Occlusion and stenosis of bilateral carotid arteries; I10 Essential (primary) hypertension
CPT/HCPCS: 36415; 80053; 80061

== ENCOUNTER → 2022-01-04 | Outpatient (CLI) | payer MEDICARE ==
[~2022-01-04] VITALS: Ht 157 cm; Wt 71.0 kg
[~2022-01-04] MED LIST changes: +CATHETER FLUSH 10 ML SYR IVP PRN
[2022-01-04 13:24] VITALS: BP 152/99
--- NOTE | 2022-01-04 16:43 | Cardiology Stress Test Report ---
Stress Test Report Date of Procedure/Referring: Date of Procedure: Jan 04, 2022 PCP Basil Leal MD Admitting Physician Admitting Physician: Attending Physician: Gigi Hernandez MD Indications: HTN Baseline Heart Rate: 78 Baseline Blood Pressure: Blood Pressure Systolic: 152 Blood Pressure Diastolic: 99 Vital Signs Date Time Temp Pulse Resp B/P (MAP) Pulse Ox O2 Delivery O2 Flow Rate FiO2 01/04/22 13:24 78 152/99 (116) 97 Room Air Baseline Vital Signs Vital Signs Date Time Temp Pulse Resp B/P (MAP) Pulse Ox O2 Delivery O2 Flow Rate FiO2 01/04/22 13:24 78 152/99 (116) 97 Room Air Baseline EKG: Baseline EKG: NSR Summary: After explaining the procedure and details to the patient, she signed the consent and was brought to the stress nuclear laboratory. Patient exercised on standard Nav protocol, EKG, heart rate and blood pressure were monitored continuously, resting and stress doses of radio tracer were injected, imaging was acquired and reviewed in the short axis, horizontal long axis and vertical long axis views Patient was able to exercise for a total of 5 minutes on Nav protocol, METs 7 Maximum heart rate 139 Maximum blood pressure 186/99 Stress EKG, Minimal nondiagnostic changes Recovery EKG, Return to baseline TID: 0.93 SSS: 2 SDS: 2 EF: 79 Conclusion: 1. Good exercise tolerance for a total of 5 minutes on standard Nav protocol, 7 METS achieving 94% of maximal expected heart rate 2. Baseline hypertension with hypertensive response to exercise with peak blood pressure 186/99 return to baseline during recovery 3. Nondiagnostic EKG changes with exercise return to baseline during recovery 4. No significant ischemia or infarction on SPECT images 5. Normal left ventricular size, ejection fraction 79% Copy Copies To 1: BASIL LEAL MD, BASHAR J MD Jan 04, 2022 16:43
== END ==
LOC: CARD 12:10
PROVIDERS: ATTEND Internal Medicine Cardiovascular Disease
DX: I10 Essential (primary) hypertension (principal); I25.10 Atherosclerotic heart disease of native coronary artery without angina pectoris
CPT/HCPCS: 78452; 93017; 93306; A9502

== ENCOUNTER 2022-06-21 08:52 | Emergency (ER) | payer MEDICARE ==
[~2022-06-21] VITALS: Ht 157 cm; Wt 70.0 kg
[~2022-06-21 08:52] MED LIST changes: -CATHETER FLUSH 10 ML SYR IVP PRN
[2022-06-21 10:15] LABS: BASOPHILS # (AUTO) 0.1 10^3/uL (0.0-0.1); BASOPHILS % (AUTO) 1 % (0-10); EOSINOPHILS # (AUTO) 0.4 10^3/uL (0.0-0.3); EOSINOPHILS % (AUTO) 6 % (0-10); HEMATOCRIT 42 % (35-52); HEMOGLOBIN 14.3 g/dL (11.5-16.0); LYMPHOCYTES # (AUTO) 1.2 10^3/uL (1.0-4.0); LYMPHOCYTES % (AUTO) 18 % (12-44); MEAN CORPUSCULAR HEMOGLOBIN 30 pg (25-34); MEAN CORPUSCULAR HGB CONC 34 g/dL (32-36); MEAN CORPUSCULAR VOLUME 88 fL (80-99); MEAN PLATELET VOLUME 10.1 fL (9.0-12.2); MONOCYTES # (AUTO) 0.5 10^3/uL (0.0-1.0); MONOCYTES % (AUTO) 7 % (0-12); NEUTROPHILS # (AUTO) 4.4 10^3/uL (1.8-7.8); NEUTROPHILS % (AUTO) 67 % (42-75); PLATELET COUNT 338 10^3/uL (130-400); WHITE BLOOD COUNT 6.6 10^3/uL (4.3-11.0)
[2022-06-21 10:25] LABS: ALBUMIN 4.1 GM/DL (3.2-4.5); POTASSIUM 3.7 MMOL/L (3.6-5.0)
[2022-06-21 10:26] LABS: CALCIUM 8.9 MG/DL (8.5-10.1)
[2022-06-21 10:29] LABS: BILIRUBIN,TOTAL 0.5 MG/DL (0.1-1.0)
[2022-06-21 10:31] LABS: CREATININE SERUM 0.8 MG/DL (0.60-1.30); INR 0.9 (0.8-1.4); PROTHROMBIN TIME PATIENT 13.1 SEC (12.2-14.7)
[2022-06-21 10:34] LABS: MAGNESIUM 2.1 MG/DL (1.6-2.4)
--- NOTE | 2022-06-21 10:44 | Diagnostic Imaging Report ---
EXAMINATION: Chest, 1 view. HISTORY: Chest pain. COMPARISON: 04/11/2019. FINDINGS: The lung volumes are normal. No focal consolidation is seen. No large pleural effusion or pneumothorax is seen. The cardiomediastinal silhouette is normal in size and contour. No acute osseous abnormality is seen. IMPRESSION: No acute pleuroparenchymal process. Dictated by: Dictated on workstation # [id number]
--- NOTE | 2022-06-21 13:20 | ED Cardiac General ---
History of Present Illness General Chief Complaint: Cardiac/General Problems Stated Complaint: BILAT SHOULDER PAIN | ELEVATED BLOOD PRESSURE Nursing Triage Note: Pt reports home BP reading of 153/104 this morning at home. Patient states she took her home BP meds (losartin 100mg and amlodipine 5mg) at 0830. Patient denies pain or other symptoms at this time. Patient states she has had bilateral "shoulder pain" for 2 days. Pt pointing to location of pain near upper trapezius muscles and reports she has "problems with her joints". Pt stating patient has been feeling lethargic more than normal lately. Source: patient, family Exam Limitations: no limitations History of Present Illness Date Seen by Provider: Jun 21, 2022 Time Seen by Provider: 09:18 Initial Comments This 71-year-old woman presents to the emergency room with primary concern of hypertension. She has had recent changes in her blood pressure management. Ab out 4 weeks ago her amlodipine was increased from 5 mg to 10 mg. She had uncomfortable drops in blood pressure without change. About 3 weeks ago she dropped the amlodipine back down to 5 mg. She reports exacerbations in her blood pressure extremes with activity. She presently takes losartan 100 mg daily and amlodipine 5 mg daily. During my exam she had standing blood pressures of 151/115 and 147/101. Heart rates were 102 and 94 respectively. Patient has history of hypothyroidism after thyroidectomy. This is being monitored by Dr. Booker. Her primary care provider is Dr. Basil Leal. Her application integration specialist is Dr. Hernandez. Allergies and Home Medications Allergies Coded Allergies: erythromycin base (Verified Allergy, Severe, HIVES, 07/10/17) Penicillins (Verified Allergy, Mild, 07/10/17) Patient Home Medication List Home Medication List Reviewed: Yes Amlodipine Besylate (Amlodipine Besylate) 5 Mg Tablet, 2.5 MG PO DAILY, (Reported) Entered as Reported by: GALINDO GARCIA on 07/10/17 1444 Ca Carbonate/Vitamin D3/Vit K (Calcium + D Soft Chewable Tab) 1 Each Tab.chew, 1 TAB PO DAILY, (Reported) Entered as Reported by: RONALD CRUZ on 07/23/17 1904 Calcium Polycarbophil (Fiber Therapy) 625 Mg Tablet, 2 TAB PO DAILY, (Reported) Entered as Reported by: MURTAZA PEÑA on 07/19/17 0912 Levothyroxine Sodium (Levothyroxine Sodium) 150 Mcg Tablet, 150 MCG PO DAILY, (Reported) Entered as Reported by: LUKE VALDES on 04/18/1852 Levothyroxine Sodium (Levothyroxine Sodium) 150 Mcg Tablet, 225 MCG PO DAILY, (Reported) Entered as Reported by: LUKE VALDES on 04/18/1852 Losartan Potassium (Losartan Potassium) 50 Mg Tablet, 50 MG PO DAILY, (Reported) Entered as Reported by: GALINDO GARCIA on 07/10/17 144 Multivitamin (One Daily) 1 Each Tablet, 1 TAB PO DAILY, (Reported) Entered as Reported by: MURTAZA EPÑA on 07/19/17911 Omeprazole (Omeprazole) 40 Mg Capsule.dr, 20 MG PO BID, (Reported) Entered as Reported by: GALINDO GARCIA on 07/10/17 144 Ondansetron (Ondansetron Odt) 4 Mg Tab.rapdis, 4 MG PO Q6H PRN for NAUSEA/VOMITING Prescribed by: ISABELA ANG on 04/17/19 1237 Review of Systems Review of Systems Constitutional: no symptoms reported EENTM: No Symptoms Reported Respiratory: No Symptoms Reported Cardiovascular: See HPI Gastrointestinal: No Symptoms Reported Genitourinary: No Symptoms Reported Musculoskeletal: no symptoms reported Skin: no symptoms reported Psychiatric/Neurological: No Symptoms Reported Endocrine: See HPI Past Xesnfbj-Cvnqur-Edlafw Hx Patient Social History Tobacco Use?: No Substance use?: No Alcohol Use?: No Immunizations Up To Date Influenza Vaccine Up-to-Date: Yes; Up-to-Date First/Initial COVID19 Vaccinat: 07/10/2020 Seasonal Allergies Seasonal Allergies: No Past Medical History Surgeries: Yes (cystocele repair, HIATAL HERNIA REPAIR) Gallbladder, Hysterectomy, Oophorectomy, Thyroidectomy Respiratory: Yes (CHRONIC COUGH) Cardiac: Yes (DVT LEFT LEG 07/18/17) Deep Vein Thrombosis, Hypertension Neurological: No Reproductive Disorders: No 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, 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 Sexually Transmitted Disease: No HIV/AIDS: No Genitourinary: Yes UTI-Chronic Gastrointestinal: Yes Gastroesophageal Reflux, Diverticulosis, Hiatal Hernia, Gall Bladder Disease Musculoskeletal: No Endocrine: Yes (THYROID MASS---> THYROID OUT/ THYROID CANCER->THYROIDECTOMY) Hypothyroidsim HEENT: No Loss of Vision: Bilateral Hearing Impairment: Denies Cancer: Yes Thyroid Did You Recieve Any Treatments: Yes What Type of Treatment Did You: Surgical Intervention Psychosocial: No Integumentary: No Blood Disorders: No Adverse Reaction/Blood Tranf: No (N/A) Family Medical History Cardiovascular disease 19 FATHER Diabetes mellitus 19 FATHER 19 MOTHER Heart Disease, Cancer, DVT/PE, Diabetes Physical Exam Vital Signs Vital Signs - First Documented 06/21/22 09:15 Temp 37.0 Pulse 92 Resp 18 B/P (MAP) 154/102 (119) Pulse Ox 95 O2 Delivery Room Air Capillary Refill : Less Than 3 Seconds Height, Weight, BMI Height: 5'2.00" Weight: 155lbs. 0oz. 70.006522so; 28.00 BMI Method:Stated General Appearance: No Apparent Distress, WD/WN HEENT: PERRL/EOMI, Normal ENT Inspection Neck: Normal Inspection; No JVD Respiratory: Lungs Clear, Normal Breath Sounds, No Accessory Muscle Use Cardiovascular: Regular Rate, Rhythm, No Edema, No Murmur Extremity: Non Tender, No Calf Tenderness, No Pedal Edema Neurologic/Psychiatric: Alert, Oriented x3, No Motor/Sensory Deficits, Normal Mood/Affect Skin: Normal Color, Warm/Dry Progress/Results/Core Measures Results/Orders Lab Results Laboratory Tests Test 06/21/22 09:53 Range/Units White Blood Count 6.6 4.3-11.0 10^3/uL Red Blood Count 4.80 3.80-5.11 10^6/uL Hemoglobin 14.3 11.5-16.0 g/dL Hematocrit 42 35-52 % Mean Corpuscular Volume 88 80-99 fL Mean Corpuscular Hemoglobin 30 25-34 pg Mean Corpuscular Hemoglobin Concent 34 32-36 g/dL Red Cell Distribution Width 13.7 10.0-14.5 % Platelet Count 338 130-400 10^3/uL Mean Platelet Volume 10.1 9.0-12.2 fL Immature Granulocyte % (Auto) 0 % Neutrophils (%) (Auto) 67 42-75 % Lymphocytes (%) (Auto) 18 12-44 % Monocytes (%) (Auto) 7 0-12 % Eosinophils (%) (Auto) 6 0-10 % Basophils (%) (Auto) 1 0-10 % Neutrophils # (Auto) 4.4 1.8-7.8 10^3/uL Lymphocytes # (Auto) 1.2 1.0-4.0 10^3/uL Monocytes # (Auto) 0.5 0.0-1.0 10^3/uL Eosinophils # (Auto) 0.4 H 0.0-0.3 10^3/uL Basophils # (Auto) 0.1 0.0-0.1 10^3/uL Immature Granulocyte # (Auto) 0.0 0.0-0.1 10^3/uL Prothrombin Time 13.1 12.2-14.7 SEC INR Comment 0.9 0.8-1.4 Activated Partial Thromboplast Time 28 24-35 SEC Sodium Level 141 135-145 MMOL/L Potassium Level 3.7 3.6-5.0 MMOL/L Chloride Level 110 H 98-107 MMOL/L Carbon Dioxide Level 21 21-32 MMOL/L Anion Gap 10 5-14 MMOL/L Blood Urea Nitrogen 15 7-18 MG/DL Creatinine 0.80 0.60-1.30 MG/DL Estimat Glomerular Filtration Rate 78 BUN/Creatinine Ratio 19 Glucose Level 114 H 70-105 MG/DL Calcium Level 8.9 8.5-10.1 MG/DL Corrected Calcium 8.8 8.5-10.1 MG/DL Magnesium Level 2.1 1.6-2.4 MG/DL Total Bilirubin 0.5 0.1-1.0 MG/DL Aspartate Amino Transf (AST/SGOT) 21 5-34 U/L Alanine Aminotransferase (ALT/SGPT) 22 0-55 U/L Alkaline Phosphatase 46 40-136 U/L Myoglobin 50.3 10.0-92.0 NG/ML Troponin I < 0.028 <0.028 NG/ML Total Protein 7.0 6.4-8.2 GM/DL Albumin 4.1 3.2-4.5 GM/DL Thyroid Stimulating Hormone (TSH) 1.11 0.35-4.94 UIU/ML Free Thyroxine 1.34 0.70-1.48 NG/DL My Orders Orders - GREGORIA BARNES MD Cbc With Automated Diff (06/21/22 09:18) Magnesium (06/21/22 09:18) Chest 1 View, Ap/Pa Only (06/21/22 09:18) Ekg Tracing (06/21/22 09:18) Comprehensive Metabolic Panel (06/21/22 09:18) Myoglobin Serum (06/21/22 09:18) Protime With Inr (06/21/22 09:18) Partial Thromboplastin Time (06/21/22 09:18) O2 (06/21/22 09:18) Monitor-Rhythm Ecg Trace Only (06/21/22 09:18) Ed Iv/Invasive Line Start (06/21/22 09:18) Troponin I Curt (06/21/22 09:18) Thyroid Stimulating Hormone (06/21/22 13:15) Free T4 (Free Thyroxine) (06/21/22 13:15) Vital Signs/I&O 06/21/22 06/21/22 09:15 13:28 Temp 37.0 Pulse 92 92 Resp 18 18 B/P (MAP) 154/102 (119) 147/101 Pulse Ox 95 95 O2 Delivery Room Air Room Air Blood Pressure Mean: 119 Progress Progress Note : Progress Note Patient's hypertension is relatively unremarkable. Work-up was unremarkable. Chest pain panel demonstrated no significant abnormalities. Thyroid labs were also evaluated and both TSH and free T4 were within normal limits. Patient was given reassurance regarding her blood pressures. When discussing tolerating high blood pressures or low blood pressures, I suggested tolerating high blood pressures as preferable because low blood pressures increased risk for syncope and falls. She was advised to discuss further with her prescribing providers. See discharge instructions for further discussion. Initial ECG Impression Date: Jun 21, 2022 Initial ECG Impression Time: : Initial ECG Rate: 79 Initial ECG Rhythm: Normal Sinus Comment Sinus rhythm with no ST elevation or depression. Prolonged QTc of 630 ms. No axis deviation. Diagnostic Imaging Diagonstic Imaging: Xray Plain Films/CT/US/NM/MRI: chest Comments NAME: LEANNA QUIGLEY J MED REC#: [id number] PT STATUS: REG ER : 1950 PHYSICIAN: GREGORIA BARNES MD ADMIT DATE: 06/21/22/ER Signed Date of Exam:06/21/22 CHEST 1 VIEW, AP/PA ONLY EXAMINATION: Chest, 1 view. HISTORY: Chest pain. COMPARISON: 04/11/2019. FINDINGS: The lung volumes are normal. No focal consolidation is seen. No large pleural effusion or pneumothorax is seen. The cardiomediastinal silhouette is normal in size and contour. No acute osseous abnormality is seen. IMPRESSION: No acute pleuroparenchymal process. Dictated by: Dictated on workstation # [id number] Dict: 06/21/22 1043 Trans: 06/21/22 1045 [id number] Interpreted by: YANDEL CALDERON DO Electronically signed by: YANDEL CALDERON DO 06/21/22 1045 Departure Impression Primary Impression: Labile hypertension Additional Impression: Hypothyroidism Qualified Codes: E03.9 - Hypothyroidism, unspecified Disposition: HOME, SELF-CARE Condition: Stable Departure-Patient Inst. Decision time for Depature: 13:17 Referrals: BASIL LEAL MD (PCP/Family) Primary Care Physician Patient Instructions: High Blood Pressure in Adults Add. Discharge Instructions: Continue taking losartan 100 mg and amlodipine 5 mg daily. If you want to achieve more even control of your blood pressure, you may try taking 1 of these medications in the morning and 1 in the evening. Drink plenty of clear liquids, especially water. Avoid consuming things that may worsen high blood pressure including excessive salt, excessive caffeine, decongestant medications, diet pills, energy drinks, weight loss medications, medications for ADHD, etc. If you do not hear from the emergency room later today regarding your thyroid study results, please have one of your regular doctors review results with you later this week. Return to care if you have worsening symptoms despite following these instructions. Follow-up with Dr. Leal and Dr. Hernandez in the near future to discuss your symptoms. All discharge instructions reviewed with patient and/or family. Voiced understanding. Copy Copies To 1: MARCY HERNANDEZ MD Copies To 2: BASIL LEAL MD, JOSHUA T MD Jun 21, 2022 13:20
[2022-06-21 13:28] VITALS: BP 147/101
[2022-06-21 13:54] LABS: FREE T4 (FREE THYROXINE) 1.34 NG/DL (0.70-1.48)
== END 2022-06-21 13:42 | disposition home or self-care (01) ==
LOC: EDUNIT# 08:52 → ER 08:54
DX: I10 Essential (primary) hypertension (principal); E89.0 Postprocedural hypothyroidism; Z79.899 Other long term (current) drug therapy; Z90.89 Acquired absence of other organs
CPT/HCPCS: 36415; 71045; 80053; 83735; 83874; 84439; 84443; 84484; 85025; 85610; 85730; 93005; 93041

== ENCOUNTER → 2022-06-26 | Outpatient (CLI) | payer MEDICARE ==
[2022-06-26 12:04] LABS: POTASSIUM 3.7 MMOL/L (3.6-5.0)
[2022-06-26 12:05] LABS: ALBUMIN 3.9 GM/DL (3.2-4.5)
[2022-06-26 12:06] LABS: CALCIUM 8.5 MG/DL (8.5-10.1)
[2022-06-26 12:07] LABS: TOTAL PROTEIN 6.8 GM/DL (6.4-8.2)
[2022-06-26 12:09] LABS: BILIRUBIN,TOTAL 0.5 MG/DL (0.1-1.0)
[2022-06-26 12:10] LABS: CREATININE SERUM 0.77 MG/DL (0.60-1.30)
== END ==
LOC: LAB 11:25
DX: E78.2 Mixed hyperlipidemia (principal)
CPT/HCPCS: 36415; 80053; 80061

== ENCOUNTER → 2022-09-19 | Outpatient (CLI) | payer MEDICARE ==
--- NOTE | 2022-09-19 12:34 | Diagnostic Imaging Report ---
INDICATION: Routine screening. COMPARISON: Prior mammograms from 04/12/2021 and 07/08/2019. TECHNIQUE: 2D and 3D bilateral screening mammography was performed with CAD. FINDINGS: Both breasts are heterogeneously dense, limiting the sensitivity of mammography. The parenchymal pattern is stable. No dominant mass or malignant-appearing microcalcifications are seen. The axillae are unremarkable. IMPRESSION: No mammographic features suspicious for malignancy are identified. ACR BI-RADS Category 2: Benign findings. Result letter will be mailed to the patient. Note: At least 10% of breast cancer is not imaged by mammography. Dictated by: Dictated on workstation # [id number]
== END ==
LOC: RAD 10:12
PROVIDERS: ATTEND Family Medicine
DX: Z12.31 Encounter for screening mammogram for malignant neoplasm of breast (principal)
CPT/HCPCS: 77063; 77067

== ENCOUNTER 2023-03-10 11:46 | Emergency (ER) | payer MEDICARE ==
[~2023-03-10] VITALS: Ht 157.5 cm; Wt 68.0 kg
--- NOTE | 2023-03-10 12:11 | ED Respiratory ---
General Stated Complaint: RUNNY NOSE/COUGH/LETHARGIC Source: patient Exam Limitations: no limitations History of Present Illness Date Seen by Provider: Mar 10, 2023 Time Seen by Provider: 11:58 Initial Comments Here with report of upper respiratory symptoms including runny nose, sore throat, ear fullness and nasal congestion and mild cough with chills and likely intermittent fevers. This has been going on since 05 March. Patient's also has the same with onset of 02 March and he got a little better but got worse again. She follows with Dr. Basil Leal and he initiated her on azithromycin which she is currently taking but is not getting improvement. Patient's daughter and granddaughter were diagnosed yesterday with COVID and she and her both believe that they have COVID based on that. Here for further evaluation and guidance on what to do. Denies significant breathing problems, nausea, vomiting, diarrhea or difficulties with eating or drinking. Timing/Duration: constant, week Severity: moderate Prior Episodes/Possible Cause: occasional episodes Associated Symptoms: cough, earache, fever/chills, nasal congestion, nasal drainage, sore throat Allergies and Home Medications Allergies Coded Allergies: erythromycin base (Verified Allergy, Severe, HIVES, 07/10/17) Penicillins (Verified Allergy, Mild, 07/10/17) Patient Home Medication List Home Medication List Reviewed: Yes Amlodipine Besylate (Amlodipine Besylate) 5 Mg Tablet, 2.5 MG PO DAILY, (Reported) Entered as Reported by: GALINDO GARCIA on 07/10/17 1444 Ca Carbonate/Vitamin D3/Vit K (Calcium + D Soft Chewable Tab) 1 Each Tab.chew, 1 TAB PO DAILY, (Reported) Entered as Reported by: RONALD CRUZ on 07/23/17 1904 Calcium Polycarbophil (Fiber Therapy) 625 Mg Tablet, 2 TAB PO DAILY, (Reported) Entered as Reported by: MURTAZA PEÑA on 07/19/17 0912 Levothyroxine Sodium (Levothyroxine Sodium) 150 Mcg Tablet, 150 MCG PO DAILY, (Reported) Entered as Reported by: LUKE VALDES on 04/18/18 005 Levothyroxine Sodium (Levothyroxine Sodium) 150 Mcg Tablet, 225 MCG PO DAILY, (Reported) Entered as Reported by: LUKE VALDES on 12/20/18 0053 Losartan Potassium (Losartan Potassium) 50 Mg Tablet, 50 MG PO DAILY, (Reported) Entered as Reported by: GALINDO GARCIA on 07/10/17 1444 Multivitamin (One Daily) 1 Each Tablet, 1 TAB PO DAILY, (Reported) Entered as Reported by: MURTAZA PEÑA on 07/19/17 0912 Omeprazole (Omeprazole) 40 Mg Capsule.dr, 20 MG PO BID, (Reported) Entered as Reported by: GALINDO GARCIA on 07/10/17 1444 Ondansetron (Ondansetron Odt) 4 Mg Tab.rapdis, 4 MG PO Q6H PRN for NAUSEA/VOMITING Prescribed by: ISABELA ANG on 04/17/19 1237 Review of Systems Review of Systems Constitutional: see HPI EENTM: see HPI Respiratory: see HPI Cardiovascular: no symptoms reported Gastrointestinal: No diarrhea, No nausea, No vomiting Genitourinary: no symptoms reported Skin: no symptoms reported Past Lgjvabk-Bfqbdk-Jhgrol Hx Patient Social History Tobacco Use?: No Use of E-Cig and/or Vaping dev: No Substance use?: No Alcohol Use?: No Immunizations Up To Date First/Initial COVID19 Vaccinat: 07/10/2020 Seasonal Allergies Seasonal Allergies: No Past Medical History Surgeries: Yes (cystocele repair, HIATAL HERNIA REPAIR) Gallbladder, Hysterectomy, Oophorectomy, Thyroidectomy Respiratory: Yes (CHRONIC COUGH) Cardiac: Yes (DVT LEFT LEG 07/18/17) Deep Vein Thrombosis, Hypertension Neurological: No Reproductive Disorders: No [employer] 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, Menopausal Sexually Transmitted Disease: No HIV/AIDS: No Genitourinary: Yes UTI-Chronic Gastrointestinal: Yes Gastroesophageal Reflux, Diverticulosis, Hiatal Hernia, Gall Bladder Disease Musculoskeletal: No Endocrine: Yes (THYROID MASS---> THYROID OUT/ THYROID CANCER->THYROIDECTOMY) Hypothyroidsim HEENT: No Loss of Vision: Bilateral Hearing Impairment: Denies Cancer: Yes Thyroid Did You Recieve Any Treatments: Yes What Type of Treatment Did You: Surgical Intervention Psychosocial: No Integumentary: No Blood Disorders: No Adverse Reaction/Blood Tranf: No (N/A) Family Medical History Reviewed Nursing Family Hx Cardiovascular disease 19 FATHER Diabetes mellitus 19 FATHER 19 MOTHER Heart Disease, Cancer, DVT/PE, Diabetes Physical Exam Vital Signs - First Documented 03/10/23 11:56 Temp 36.6 Pulse 89 Resp 16 B/P (MAP) 141/116 (124) Pulse Ox 96 O2 Delivery Room Air Capillary Refill : Height: 5'2.00" Weight: 155lbs. 0oz. [id number]; 28.00 BMI Method:Stated General Appearance: WD/WN, no apparent distress HEENT: TM abnormal (L) (Mild bulging without erythema), pharyngeal erythema (Mi ld), other (Mild nasal congestion with erythema and clear rhinorrhea) Neck: full range of motion, supple Respiratory: lungs clear, normal breath sounds Cardiovascular: regular rate, rhythm, no murmur Gastrointestinal: non tender, soft Extremities: non-tender, normal inspection, no pedal edema, no calf tenderness Neurologic/Psychiatric: alert, oriented x 3 Skin: normal color, warm/dry Progress/Results/Core Measures Suspected Sepsis SIRS Temperature: Pulse: Respiratory Rate: Blood Pressure / Mean: Results/Orders Lab Results Laboratory Tests Test 03/10/23 12:01 Range/Units Influenza Type A (RT-PCR) Not Detected Not Detecte Influenza Type B (RT-PCR) Not Detected Not Detecte SARS-CoV-2 RNA (RT-PCR) Detected H Not Detecte My Orders Orders - MAYA VACA MD Influenza A And B By Pcr (03/10/23 11:56) Covid 19 Inhouse Test (03/10/23 11:56) Dexamethasone Injection (Dexamethasone (03/10/23 12:15) Medications Given in ED Current Medications Medications Dose Ordered Sig/Paula Route Start Time Stop Time Status Last Admin Dose Admin Dexamethasone Sodium Phosphate 10 mg ONCE ONCE IM 03/10/23 12:15 03/10/23 12:16 DC 03/10/23 12:13 10 MG Vital Signs/I&O 03/10/23 11:56 Temp 36.6 Pulse 89 Resp 16 B/P (MAP) 141/116 (124) Pulse Ox 96 O2 Delivery Room Air Capillary Refill : Progress Note : Progress Note Seen and evaluated. We will go ahead and check COVID and influenza test. Given length of symptoms, upper respiratory congestion and ear fullness, I will give Decadron 10 mg IM x1 now. Monitor patient. Differential diagnosis includes COVID infection, influenza infection, other viral infection 1248: Patient is COVID-positive and influenza negative. I did discuss COVID precautions and management as well as supportive care including OTC meds. Discharged home with return precautions. Patient verbalized understanding of instructions and agreement with plan. Patient is outside window for COVID therapeutics and this was discussed with patient and family as well. Departure Impression Primary Impression: COVID-19 virus infection Disposition: HOME, SELF-CARE Condition: Stable Departure-Patient Inst. Decision time for Depature: 12:49 Referrals: BASIL LEAL MD (PCP/Family) Primary Care Physician Patient Instructions: COVID-19 ED Add. Discharge Instructions: You may take Tylenol/acetaminophen 1000 mg every 8 hours as needed for fever or pain. You may take ibuprofen 400 mg every 8 hours as needed for fever or pain. You may use Afrin nasal spray or the generic, 12 hour relief, 2 sprays to each nostril twice daily for 3 days only and then stop. Do not use more than 3 days. Follow-up with your Dr. in a few days for recheck. Drink plenty of fluids. Re turn for worse pain, fever, vomiting, weakness, breathing problems or other concerns as needed. Continue antibiotics as previously prescribed. Since you are COVID-positive, you should remain at home and away from people until fever free for 24 hours. You may then return to public but you should wear a mask for at least 5 days to help prevent transmitting infection to other people. Copy Copies To 1: BASIL LEAL MD, TIMOTHY D MD Mar 10, 2023 12:11
[2023-03-10] MEDS ORDERED: dexAMETHasone INJ 10 MG/ML 1 ML VIAL IM ONE (12:15)
[2023-03-10] MEDS ORDERED: dexAMETHasone INJ 10 MG/ML 1 ML VIAL IV ONE (12:15)
[2023-03-10 12:56] VITALS: BP 135/89
== END 2023-03-10 12:56 | disposition home or self-care (01) ==
LOC: EDUNIT# 11:46 → ER 11:49
DX: U07.1 COVID-19 (principal); R09.89 Other specified symptoms and signs involving the circulatory and respiratory systems; R05.9 Cough, unspecified; R09.81 Nasal congestion; R50.9 Fever, unspecified
CPT/HCPCS: 87636; 96372; 99284